=== PATIENT | male | born 1995 | race Hispanic/Latino ===

== ENCOUNTER 2017-08-06 19:07 | Emergency (ER) | payer OTHER ==
[~2017-08-06] VITALS: Ht 172.7 cm; Wt 90.7 kg
[~2017-08-06 19:07] MED LIST: 24HOUR ALLERGY10 MG PO; ABILIFY20 MG PO; ACETAMINOPHEN650 M1 PO; BENZONATATE200 MG PO; BUPROPION XL300 MG PO; CALCIUM ANTACI400 MG PO; CEROVITE ADVAN1 EACH PO; CHLORASEPTIC177 M1 MM; CLEAR-ATADINE10 MG PO; CLONIDINE HCL0.2 MG PO; DEPAKOTE500 MG PO; DIVALPROEX SOD500 M1 PO; FLAXSEED OIL1000 M1 PO; FLOVENT DISKUS50 MCG INH; IMODIUM MULTI-1 EACH PO; INTUNIV4 MG PO; LATUDA120 MG PO; MELATIN3 MG PO; METFORMIN HCL500 M1 PO; METHYLPREDNISOLO4 MG PO; NAPROXEN500 MG PO; OLANZAPINE5 MG PO; PEPTO-BISM262 MG/15 PO; RISPERIDONE2 MG PO; SEROQUEL XR200 MG PO; SERTRALINE HCL100 MG PO; TERBINAFINE HC250 MG PO; TROKENDI XR25 MG PO; VENTOLIN HFA18 GM INH; VITAMIN D250000 UNIT PO; VITAMIN D35000 UNIT PO
== END 2017-08-06 21:06 | disposition home or self-care (01) ==
LOC: ED 19:07
DX: S00.93XA Contusion of unspecified part of head, initial encounter (principal); S80.211A Abrasion, right knee, initial encounter; F32.9 Major depressive disorder, single episode, unspecified; F41.9 Anxiety disorder, unspecified; F90.9 Attention-deficit hyperactivity disorder, unspecified type; Z79.899 Other long term (current) drug therapy; W22.8XXA Striking against or struck by other objects, initial encounter
CPT/HCPCS: 99282

== ENCOUNTER 2017-08-22 21:05 | Emergency (ER) | payer OTHER ==
[~2017-08-22] VITALS: Ht 172.7 cm; Wt 90.7 kg
[2017-08-22] MEDS ORDERED: NAPROXEN500 MG PO (22:02)
== END 2017-08-22 22:18 | disposition home or self-care (01) ==
LOC: ED 21:05
DX: M72.2 Plantar fascial fibromatosis (principal); F90.9 Attention-deficit hyperactivity disorder, unspecified type; F31.9 Bipolar disorder, unspecified; F84.0 Autistic disorder; Z79.899 Other long term (current) drug therapy
CPT/HCPCS: 73630; 99283

== ENCOUNTER 2018-08-10 18:06 | Emergency (ER) | payer OTHER ==
[~2018-08-10] VITALS: Ht 172.7 cm; Wt 90.7 kg
--- OUTSIDE RECORDS SUMMARY | ~2018-08-10 | XMS | Clinical Summary ---
Demographics + + + | Address | [address] | | | [place] [address] | + + + | Home Phone | | + + + | Preferred Language | Unknown | + + + | Marital Status | Single | + + + | Yazidism Affiliation | 1041 | + + + | Race | Unknown | + + + | Ethnic Group | Unknown | + + + Author + + + | Author | [facility] | + + + | Organization | [facility] | + + + | Address | Unknown | + + + | Phone | Unavailable | + + + Support + + +---------+ + | Name | Relationship | Address | Phone | + + +---------+ + | Nguyen Vigil | ECON | Unknown | | + + +---------+ + Care Team Providers + +------+ + | Care Welding Machine Operator Name | Role | Phone | + +------+ + | Johnny Schultz DO | PP | | + +------+ + Allergies No Known Allergies Current Medications + + +---------+---------+------+------+-------+ | Prescription | Sig. | Disp. | Refills | Star | End | Statu | | | | | | t | Date | s | | | | | | Date | | | + + +---------+---------+------+------+-------+ | buPROPion | Take 300 mg by mouth | | | | | Activ | | (WELLBUTRIN XL) 300 | every morning. | | | | | e | | MG 24 hr tablet | | | | | | | + + +---------+---------+------+------+-------+ | Multiple | Take 1 tablet by | | | | | Activ | | Vitamins-Minerals | mouth nightly. | | | | | e | | (CENTROVITE) TABS | | | | | | | + + +---------+---------+------+------+-------+ | cetirizine | Take 10 mg by mouth | | | | | Activ | | (ZYRTEC) 10 MG | daily. | | | | | e | | tablet | | | | | | | + + +---------+---------+------+------+-------+ | cloNIDine | Take 0.2 mg by mouth | | | | | Activ | | (CATAPRES) 0.2 MG | nightly. | | | | | e | | tablet | | | | | | | + + +---------+---------+------+------+-------+ | divalproex | Take 1,000 mg by | | | | | Activ | | (DEPAKOTE) 500 MG EC | mouth 3 (three) | | | | | e | | tablet | times daily. | | | | | | + + +---------+---------+------+------+-------+ | ergocalciferol | Take 50,000 Units by | | | | | Activ | | (DRISDOL) 08454 | mouth twice a week. | | | | | e | | UNITS capsule | Monday and | | | | | | + + +---------+---------+------+------+-------+ | Flaxseed, Linseed, | Take 1 capsule by | | | | | Activ | | (FLAXSEED OIL) 1000 | mouth 2 (two) times | | | | | e | | MG CAPS | daily. | | | | | | + + +---------+---------+------+------+-------+ | fluticasone | 1 spray by Each Nare | | | | | Activ | | (FLONASE) 50 MCG/ACT | route daily. | | | | | e | | nasal | | | | | | | + + +---------+---------+------+------+-------+ | GuanFACINE HCl 4 | Take 1 tablet by | | | | | Activ | | MG TB24 | mouth daily. | | | | | e | + + +---------+---------+------+------+-------+ | OLANZapine | Take 5 mg by mouth | | | | | Activ | | (ZYPREXA) 5 MG | nightly. | | | | | e | | tablet | | | | | | | + + +---------+---------+------+------+-------+ | quetiapine | Take 200 mg by mouth | | | | | Activ | | (SEROQUEL) 200 MG | nightly. | | | | | e | | tablet | | | | | | | + + +---------+---------+------+------+-------+ | sertraline | Take 200 mg by mouth | | | | | Activ | | (ZOLOFT) 100 MG | daily. | | | | | e | | tablet | | | | | | | + + +---------+---------+------+------+-------+ | acetaminophen | Take 650 mg by mouth | | | | | Activ | | (TYLENOL) 325 MG | every 6 (six) hours | | | | | e | | tablet | as needed for Pain. | | | | | | + + +---------+---------+------+------+-------+ | benzonatate | Take 200 mg by mouth | | | | | Activ | | (TESSALON) 200 MG | 3 (three) times | | | | | e | | capsule | daily as needed for | | | | | | | | Cough. | | | | | | + + +---------+---------+------+------+-------+ | calcium carbonate | Take 500 mg by mouth | | | | | Activ | | (TUMS) 500 MG | every 6 (six) hours | | | | | e | | chewable tablet | as needed for | | | | | | | | Heartburn. | | | | | | + + +---------+---------+------+------+-------+ | phenol | Use as directed 1 | | | | | Activ | | (CHLORASEPTIC MOUTH | spray in the mouth | | | | | e | | PAIN) 1.4 % oral | or throat every 2 | | | | | | | spray | (two) hours as | | | | | | | | needed for Sore | | | | | | | | Throat. | | | | | | + + +---------+---------+------+------+-------+ | | Take 1 tablet by | | | | | Activ | | Loperamide-Simethico | mouth 4 (four) times | | | | | e | | ne (IMODIUM | daily as needed. | | | | | | | MULTI-SYMPTOM | | | | | | | | RELIEF) 2-125 MG | | | | | | | | TABS | | | | | | | + + +---------+---------+------+------+-------+ | melatonin 3 MG | Take 3 mg by mouth | | | | | Activ | | TABS | nightly as needed. | | | | | e | + + +---------+---------+------+------+-------+ | naproxen | Take 500 mg by mouth | | | | | Activ | | (NAPROSYN) 500 MG | 2 (two) times daily | | | | | e | | tablet | as needed. | | | | | | + + +---------+---------+------+------+-------+ | bismuth | Take 15 mLs by mouth | | | | | Activ | | subsalicylate (PEPTO | every 6 (six) hours | | | | | e | | BISMOL) 262 MG/15ML | as needed for | | | | | | | suspension | Indigestion. | | | | | | + + +---------+---------+------+------+-------+ | albuterol | Inhale 2 puffs into | | | | | Activ | | (PROVENTIL | the lungs every 4 | | | | | e | | HFA;VENTOLIN HFA) | (four) hours as | | | | | | | 108 (90 BASE) | needed for Wheezing. | | | | | | | MCG/ACT inhaler | | | | | | | + + +---------+---------+------+------+-------+ | Menthol (RICOLA) | Use as directed 1 | | | | | Activ | | LOZG | lozenge in the mouth | | | | | e | | | or throat 4 (four) | | | | | | | | times daily as | | | | | | | | needed. | | | | | | + + +---------+---------+------+------+-------+ | DM-APAP-CPM (VICKS | Take 30 mLs by mouth | | | | | Activ | | NYQUIL COLD & FLU | every 6 (six) hours | | | | | e | | NIGHT) 30-650-4 | as needed. | | | | | | | MG/30ML LIQD | | | | | | | + + +---------+---------+------+------+-------+ | mupirocin | Apply topically 2 | | | | | Activ | | (BACTROBAN) 2 % | (two) times daily as | | | | | e | | ointment | needed. | | | | | | + + +---------+---------+------+------+-------+ | | Place 1 drop into | | | | | Activ | | Naphazoline-Pheniram | both eyes 4 (four) | | | | | e | | ine (OPCON-A) | times daily as | | | | | | | 0.027-0.315 % SOLN | needed (allergies). | | | | | | | ophthalmic solution | | | | | | | + + +---------+---------+------+------+-------+ | sodium chloride | 1 spray by Each Nare | | | | | Activ | | (OCEAN) 0.65 % nasal | route as needed for | | | | | e | | | Congestion. | | | | | | + + +---------+---------+------+------+-------+ | tolnaftate | Apply topically 2 | | | | | Activ | | (TINACTIN) 1 % cream | (two) times daily as | | | | | e | | | needed (fungal | | | | | | | | infection of feet). | | | | | | + + +---------+---------+------+------+-------+ | | 2 (two) times daily | | | | | Activ | | neomycin-bacitracin- | as needed (minor | | | | | e | | polymyxin | cuts). | | | | | | | (STU-POLYSPORIN) | | | | | | | | ophthalmic ointment | | | | | | | + + +---------+---------+------+------+-------+ | metoprolol | Take 1 tablet by | 30 | 1 | 12/2 | | Activ | | (LOPRESSOR) 25 MG | mouth 2 (two) times | tablet | | 8/20 | | e | | tablet | daily. For blood | | | 16 | | | | | pressure and heart | | | | | | | | rate control | | | | | | + + +---------+---------+------+------+-------+ | phenytoin | Take 1 capsule by | 30 | 0 | 04/29 | | Activ | | (DILANTIN) 200 MG ER | mouth daily. For | capsule | | 8/20 | | e | | capsule | seizure disorder and | | | 16 | | | | | history of | | | | | | | | tonic-clonic | | | | | | | | seizures | | | | | | + + +---------+---------+------+------+-------+ Active Problems + + + | Problem | Noted Date | + + + | Encephalitis due to human herpes simplex virus (HSV) | 05/10/2016 | + + + | Developmental delay | 05/06/2016 | + + + | Seizure (HCC) | 05/06/2016 | + + + | Leukocytosis | 05/06/2016 | + + + | ADHD (attention deficit hyperactivity disorder) | 05/06/2016 | + + + | Bipolar disorder, unspecified | 05/06/2016 | + + + | Non-intractable vomiting with nausea | 05/06/2016 | + + + Family History + + +------+ + | Medical History | Relation | Name | Comments | + + +------+ + | [place]'s disease | Mother | | | + + +------+ + + +------+--------+ + | Relation | Name | Status | Comments | + +------+--------+ + | Mother | | | | + +------+--------+ + Social History + +-------+ +--------+------+ | Tobacco Use | Types | Packs/Day | Years | Date | | | | | Used | | + +-------+ +--------+------+ | Never Smoker | | | | | + +-------+ +--------+------+ + + + | Sex Assigned at | Date Recorded | | | | + + + | Not on file | | + + + Last Filed Vital Signs + + + + | Vital Sign | Reading | Time Taken | + + + + | Blood Pressure | 135/86 | 06/14/2016 10:52 AM PST | + + + + | Pulse | 97 | 06/14/2016 10:52 AM PST | + + + + | Temperature | 36.2 C (97.2 F) | 06/14/2016 10:52 AM PST | + + + + | Respiratory Rate | 22 | 05/22/2016 11:36 AM PST | + + + + | Oxygen Saturation | 100% | 06/14/2016 10:52 AM PST | + + + + | Inhaled Oxygen | - | - | | Concentration | | | + + + + | Weight | 88 kg (194 lb) | 06/14/2016 10:52 AM PST | + + + + | Height | 167.6 cm (5' 6") | 05/06/2016 9:16 PM PST | + + + + | Body Mass Index | 31.31 | 06/14/2016 10:52 AM PST | + + + + Plan of Treatment + + + + + | Health Maintenance | Due Date | Last Done | Comments | + + + + + | Vaccine: | | | | | Dtap/Tdap/Td (1 - | 4 | | | | Tdap) | | | | + + + + + | Vaccine: Influenza | | | | | (#1) | 8 | | | + + + + + Results Not on filefrom Last 3 Months Insurance + +--------+ +------+-------+ + | Payer | Benefi | Subscriber | Type | Phone | Address | | | t Plan | ID | | | | | | / | | | | | | | Group | | | | | + +--------+ +------+-------+ + | MEDICAID | [employer] | [id number] | | | [address] | | | N | | | | [place], [place] | | | [place] | | | | [address] | | | BALLROOM DANCE INSTRUCTOR | | | | | + +--------+ +------+-------+ + + +--------+ +--------+ + + | Guarantor Name | Accoun | Relation to | Date | Phone | Billing Address | | | t Type | Patient | of | | | | | | | | | | + +--------+ +--------+ + + | GLADYS VASQUEZ | Person | Self [birth year] | Home: | [address] | | | al/Fam | | 1995 | [phone] | [place] [address] | | | camila | | | [phone] | | + +--------+ +--------+ + +
--- OUTSIDE RECORDS SUMMARY | ~2018-08-10 | XMS | Clinical Summary ---
Demographics + + + | Address | [address] | | | [place] [address] | + + + | Home Phone | | + + + | Preferred Language | Unknown | + + + | Marital Status | Single | + + + | Protestant Affiliation | 1041 | + + + | Race | Unknown | + + + | Ethnic Group | Unknown | + + + Author + + + | Author | [facility] | + + + | Organization | [facility] | + + + | Address | Unknown | + + + | Phone | Unavailable | + + + Support + + +---------+ + | Name | Relationship | Address | Phone | + + +---------+ + | Nguyen Vigil | ECON | Unknown | | + + +---------+ + Care Team Providers + +------+ + | Care Data Warehousing Specialist Name | Role | Phone | + [...] | | | Activ | | (DRISDOL) [address]54 | mouth twice a week. | | [...] Comments | + + +------+ + | [place]'s disease | Mother | | | + [...] +------+-------+ + | MEDICAID | [employer] | [id number] | | | [address] | | | N | | | | [place], [place] | | | [place] | | | | [phone] | | | SUTURE WINDER HAND | | | | | + +--------+ [...] | 1995 | [phone] | [place] [address] | | | camila | | | [phone] | | + +--------+ +--------+ + +
== END 2018-08-10 20:53 | disposition home or self-care (01) ==
LOC: ED 18:06
DX: S02.2XXA Fracture of nasal bones, initial encounter for closed fracture (principal); F90.9 Attention-deficit hyperactivity disorder, unspecified type; F31.9 Bipolar disorder, unspecified; F41.9 Anxiety disorder, unspecified; F84.0 Autistic disorder; Z79.899 Other long term (current) drug therapy; Y04.0XXA Assault by unarmed brawl or fight, initial encounter; Z23 Encounter for immunization
CPT/HCPCS: 70486; 90471; 90715; 99284-25

== ENCOUNTER 2019-05-31 14:16 | Emergency (ER) | payer OTHER ==
[~2019-05-31] VITALS: Ht 172.7 cm; Wt 90.7 kg
--- OUTSIDE RECORDS SUMMARY | ~2019-05-31 | XMS | Encounter Summary ---
Demographics + + + | Address | [address] | | | [place] [address] | + + + | Home Phone | | + + + | Preferred Language | Unknown | + + + | Marital Status | Single | + + + | Zoroastrianism Affiliation | 1041 | + + + | Race | Unknown | + + + | Ethnic Group | Unknown | + + + Author + + + | Author | [facility] | | | and [facility] | + + + | Organization | [facility] | | | and [facility] | + + + | Address | Unknown | + + + | Phone | Unavailable | + + + Care Team Providers + +------+ + | Care Mexican Food Machine Tender Name | Role | Phone | + +------+ + PCP | Unavailable | + +------+ + Encounter Details +--------+ + + + + | Date | Type | Department | Care Team | Description | +--------+ + + + + | 05/06/ | Hospital | [facility] | Conversion | Diagnosis unknown | | 2016 | Encounter | CONVERSION DEP [address] | Transaction, | | | | | IBIS [facility]AVE[facility] | Provider Unknown | | | | | [place] | [phone] | | | | | [phone] | | | | | | [phone] | | | +--------+ + + + + Social History + +-------+ +--------+------+ | Tobacco Use | Types | Packs/Day | Years | Date | | | | | Used | | + +-------+ +--------+------+ | Never Assessed | | | | | + +-------+ +--------+------+ + + + | Sex Assigned at | Date Recorded | | | | + + + | Not on file | | + + + + + + + | Job Start Date | Occupation | Industry | + + + + | Not on file | Not on file | Not on file | + + + + + + + + | Travel History | Travel Start | Travel End | + + + + + + | No recent travel history available. | + + documented as of this encounter Plan of Treatment Not on filedocumented as of this encounter Procedures + +--------+ + + + | Procedure Name | Priori | Date/Time | Associated Diagnosis | Comments | | | ty | | | | + +--------+ + + + | CT HEAD WO CONTRAST | Routin | 05/06/2016 | | Results for this | | | e | 5:29 PM | | procedure are in the | | | | PST | | results section. | + +--------+ + + + documented in this encounter Results CT Head wo Contrast (05/06/2016 5:29 PM PST) + + | Specimen | + + | | + + + + + | Narrative | Performed At | + + + | This is a non-reportable procedure without a radiologist report and | | | is used for image storage only | | + + + + + | Procedure Note | + + | Manish Michael - 01/10/2019 8:49 PM PDT This is a non-reportable procedure | | without a radiologist report and isused for image storage only | + + documented in this encounter Visit Diagnoses + + | Diagnosis | + + | Diagnosis unknown Other unknown and unspecified cause of morbidity or mortality | + + documented in this encounter"
--- OUTSIDE RECORDS SUMMARY | ~2019-05-31 | XMS | Clinical Summary ---
Demographics + + + | Address | [address] | | | [place] [address] | + + + | Home Phone | | + + + | Preferred Language | Unknown | + + + | Marital Status | Single | + + + | Yarsani Affiliation | 1041 | + + + | Race | Unknown | + + + | Ethnic Group | Unknown | + + + Author + + + | Author | [facility] (Historical as of | | | 01-12-19) | + + + | Organization | [facility] (Historical as of | | | 01-12-19) | + + + | Address | Unknown | + + + | Phone | Unavailable | + + + Support + + +---------+ + | Name | Relationship | Address | Phone | + + +---------+ + | Nguyen Vigil | ECON | Unknown | | + + +---------+ + Care Team Providers + +------+ + | Care Professor Of Vegetable Science Name | Role | Phone | + [...] | | | Activ | | (DRISDOL) 84698 | mouth twice a week. | | [...] capsule by | 30 | 0 | 12/2 | | Activ | | (DILANTIN) 200 [...] Comments | + + +------+ + | Riccardo's disease | Mother | | | + [...] | | | | | (#1) | 9 | | | + + + + [...] +------+-------+ + | MEDICAID | [employer] | [id number] | | | [address] | | | N | | | | [place], [place] | | | [place] | | | | [phone] | | | PHYSICAL THERAPY DIRECTOR | | | | | + +--------+ [...] [birth year] | Home: | [address] | | | al/Bob | | 1995 | [phone] | [place] [address] | | | camila | | | [phone] | | + +--------+ +--------+ + +
--- OUTSIDE RECORDS SUMMARY | ~2019-05-31 | XMS | Clinical Summary ---
Demographics + + + | Address | [address] | | | [place] [address] | + + + | Home Phone | | + + + | Preferred Language | Unknown | + + + | Marital Status | Single | + + + | Gnosticist Affiliation | 1041 | + + + | Race | Unknown | + + + | Ethnic Group | Unknown | + + + Author + + + | Author | [facility] | | | and [facility] | + + + | Organization | [facility] | | | and [facility] | + + + | Address | Unknown | + + + | Phone | Unavailable | + + + Care Team Providers + +------+ + | Care Fiber Picker Name | Role | Phone | + +------+ + | Johnny Schultz DO | TINA | | + +------+ + Allergies Not on File Medications Not on file Active Problems Not on file Family History + + +------+ + | Medical History | Relation | Name | Comments | + + +------+ + | Ziebach's chorea | Mother | | | + + [...] recent travel history available. | + + Last Filed Vital Signs + + + + + | Vital Sign | Reading | Time Taken | Comments | + + + + + | Blood Pressure | 135/86 | 06/14/2016 10:58 AM | | | | | PST | | + + + + + | Pulse | 97 | 06/14/2016 10:58 AM | | | | | PST | | + + + + + | Temperature | 36.2 C (97.2 F) | 06/14/2016 10:58 AM | | | | | PST | | + + + + + | Respiratory Rate | 22 | 05/22/2016 11:37 AM | | | | | PST | | + + + + + | Oxygen Saturation | - | - | | + + + + + | Inhaled Oxygen | - | - | | | Concentration | | | | + + + + + | Weight | 88 kg (194 lb) | 06/14/2016 10:58 AM | | | | | PST | | + + + + + | Height | 167.6 cm (5' 6") | 05/22/2016 11:37 AM | | | | | PST | | + + + + + | Body Mass Index | 31.31 | 05/22/2016 11:37 AM | | | | | PST | | + + + + + Plan of Treatment + + + + + | Health Maintenance | Due Date | Last Done | Comments | + + + + + | Vaccine: | | | | | Dtap/Tdap/Td (1 - | 6 | | | | Tdap) | | | | + + + + + | Vaccine: Influenza | | | | | (#1) | 9 | | | + + + + + Results Not on filefrom Last 3 Months
--- OUTSIDE RECORDS SUMMARY | ~2019-05-31 | XMS | Encounter Summary ---
Demographics + + + | Address | [address] | | | [place] [address] | + + + | Home Phone | | + + + | Preferred Language | Unknown | + + + | Marital Status | Single | + + + | Uatsdin Affiliation | 1041 | + + + | Race | Unknown | + + + | Ethnic Group | Unknown | + + + Author + + + | Author | [facility] | | | and [place]astacio[place] | + + + | Organization | [facility] | | | and [place] | + + + | Address | Unknown | + + + | Phone | Unavailable | + + + Care Team Providers + +------+ + | Care Elevator Installer Apprentice Name | Role | Phone | + +------+ + PCP | Unavailable | + +------+ + Encounter Details +--------+ + + + + | Date | Type | Department | Care Team | Description | +--------+ + + + + | 05/06/ | Hospital | [facility] | Grace Luna MD | Convulsions, | | 2016 - | Encounter | [facility] | [address] | unspecified | | | | CARE FLOOR [address] | [place] [address] | convulsion type | | 05/22/ | | [address] | [phone] | ([facility]) | | 2016 | | [place], [place] | | | | | | [address] | | | | | | [phone] | | | +--------+ + + + [...] + + documented as of this encounter Last Filed Vital Signs + + + + + | Vital Sign | Reading | Time Taken | Comments | + + + + + | Blood Pressure | 132/88 | 05/22/2016 11:37 AM | | | | | PST | | + + + + + | Pulse | 114 | 05/22/2016 11:37 AM | | | | | PST | | + + + + + | Temperature | 36.7 C (98 F) | 05/22/2016 11:37 AM | | | [...] + + + + | Weight | 87.3 kg (192 lb 8 | 05/22/2016 11:37 AM | | | | oz) | PST | | + + + + + | Height | 167.6 cm (5' 6") | 05/22/2016 11:37 AM | | | | | PST | | + + + + + | Body Mass Index | 31.07 | 05/22/2016 11:37 AM | | | | | PST | | + + + + + documented in this encounter Discharge Summaries Katlyn Arango MD - 05/22/2016 8:13 AM PSTFormatting of this note might be different f rom the original. 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 male who was admitted on 05/06/2016 with tonic clonic seizures and found to have occiptal and temporal lobe lesions on MRI+positive HSV 2- LP- HSV encephal itis +Past medical history of DD and bipolar Disorder from adult family home ADL need assist ID consulted - care plan IV acyclovir -planned for 14 days total until may 22 Today last day as per ID Wark has to be IV form, he is heamodynamically stable no recurrence of se izure afebril tolerating well IV antibiotic Finishing today . Stable electrolyes and cre stablestable anemia noted since admit sinus tachycardia no compliant CP or palpiatation review TSH were normal we start low dose betablocker also as BP med inplace of am clonidine now HR in 90s insta ed 120s sinus . Tonic Clonic seizures stable No recurrenace by sofar on , dilantinlevel on Apr 8 albumin 3.3 depokte level 97 theraputic with heamodynamic stability no headache or nause vomiting afebril d/c to adult family home back after done of IV acyclovir today ADHD /. Bipolar disorder stable on depakote and, zoloft, bupropion and Seroquel As well a s zyprexa continue resume at d/cmoniter LFT trend lability Being stable lability at d/c can be Acyclovir on board also can contribute on top of his hep A Ab reactive Can be Current or past HAV infection. No serologic evidence of HCV infection or HBV infection o r vaccination per testing HIV was negative need recheck on Apr at [facility]ility f/ up ID PCP . . 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 Recent Radiology Results X-ray Chest 1 View 05/16/2016 1. Left PICC tip in the mid to upper SVC. Discharge Information: Follow up: Michelle López MD [address] [facility] [address] On 05/23/2016 Johnny Schultz, [address] [place] [id number] Medication List START taking these medications acyclovir 500 MG IVPB QTY: 100 mL Refills: 0 Commonly known as: ZOVIRAX 640 mg IV every 8 hours metoprolol 25 MG tablet QTY: 30 tablet Refills: 1 Commonly known as: LOPRESSOR Take 1 tablet by mouth 2 (two) times daily. phenytoin 200 MG ER capsule QTY: 30 capsule Refills: 0 Commonly known as: DILANTIN Take 1 capsule by mouth daily. CHANGE how you take these medications * divalproex 500 MG EC tablet Refills: 0 Commonly known as: DEPAKOTE What changed: Another medication with the same name was added. Make sure you understand ho w and when to take each. * divalproex 500 MG EC tablet QTY: 60 tablet Refills: 0 Commonly known as: DEPAKOTE Take 2 tablets by mouth 3 (three) times daily. What changed: You were already taking a medication with the same name, and this prescripti on was added. Make sure you understand how and when to take each. * Notice: This list has 2 medication(s) that are the same as other medications prescribed for you. Read the directions carefully, and ask your doctor or other care provider to revie w them with you. CONTINUE taking these medications acetaminophen 325 MG tablet Refills: 0 Commonly known as: TYLENOL albuterol 108 (90 BASE) MCG/ACT inhaler Refills: 0 Commonly known as: PROVENTIL HFA;VENTOLIN HFA benzonatate 200 MG capsule Refills: 0 Commonly known as: TESSALON bismuth subsalicylate 262 MG/15ML suspension Refills: 0 Commonly known as: PEPTO BISMOL buPROPion 300 MG 24 hr tablet Refills: 0 Commonly known as: WELLBUTRIN XL CENTROVITE Tabs Refills: 0 cetirizine 10 MG tablet Refills: 0 Commonly known as: ZyrTEC CHLORASEPTIC MOUTH PAIN 1.4 % oral spray Refills: 0 Generic drug: phenol cloNIDine 0.2 MG tablet Refills: 0 Commonly known as: CATAPRES ergocalciferol 59477 UNITS capsule Refills: 0 Commonly known as: DRISDOL Flaxseed Oil 1000 MG Caps Refills: 0 fluticasone 50 MCG/ACT nasal Refills: 0 Commonly known as: FLONASE GuanFACINE HCl 4 MG Tb24 Refills: 0 IMODIUM MULTI-SYMPTOM RELIEF 2-125 MG Tabs Refills: 0 Generic drug: Loperamide-Simethicone melatonin 3 MG Tabs Refills: 0 mupirocin 2 % ointment Refills: 0 Commonly known as: BACTROBAN naproxen 500 MG tablet Refills: 0 Commonly known as: NAPROSYN mrttoisb-cplpxzxktr-tdjjrpnil ophthalmic ointment Refills: 0 Commonly known as: STU-POLYSPORIN OLANZapine 5 MG tablet Refills: 0 Commonly known as: ZyPREXA OPCON-A 0.027-0.315 % Soln ophthalmic solution Refills: 0 Generic drug: Naphazoline-Pheniramine quetiapine 200 MG tablet Refills: 0 Commonly known as: SEROquel RICOLA Lozg Refills: 0 sertraline 100 MG tablet Refills: 0 Commonly known as: ZOLOFT sodium chloride 0.65 % nasal Refills: 0 Commonly known as: OCEAN TUMS 500 MG chewable tablet Refills: 0 Generic drug: calcium carbonate VICKS NYQUIL COLD & FLU NIGHT 30-650-4 MG/30ML Liqd Refills: 0 Generic drug: DM-APAP-CPM STOP taking these medications VICKS DAYQUIL COLD & FLU 10-5-325 MG/15ML Liqd Generic drug: QF-Izjwwbyoqqfbk-Kpvawnusxjkjj Where to Get Your Medications You can get these medications from any pharmacy Bring a paper prescription for each of these medications - acyclovir 500 MG IVPB - divalproex 500 MG EC tablet - metoprolol 25 MG tablet - phenytoin 200 MG ER capsule 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 KATLYN ARANGO 8:13 AM documented in this encounter Progress Notes Conversion Transaction, Provider Unknown - 05/22/2016 2:38 PM PSTFormatting of this note m ight be different from the original. Nurse Progress Note by Gifty Childs RN at 05/22/16 1438 Author: Gifty Childs RN Service: (none) Author Type: Registered Nurse Filed: 05/22/16 1439 Date of Service: 05/22/168 Status: Signed Casing Crew: Gifty Childs RN (Registered Nurse) Pt being discharged off unit with whitewasher. All discharge information faxed to [facility] and also sent with pt. Iv removed. Gifty Childs RN onver ellen Transaction, Provider Unknown - 05/22/2016 3:40 AM PST Progress Notes by Maggy Cline RN at 05/22/16 0340 Author: Maggy Cline RN Service: (none) Author Type: Registered Nurse Filed: 05/22/16 0514 Date of Service: 05/22/16339 Status: Signed Casing Crew: Maggy Cline RN (Registered Nurse) Patient is AOx4. VSS. He was tearful and emotional this evening prior to falling asleep, b ut woke feeling better. He denies any pain or discomfort at this time. No acute changes to initial shift assessment. Will continue to monitor. Maggy Cline RN onver ellen Transaction, Provider Unknown - 05/21/2016 12:32 PM PST Progress Notes by Aura Engel RN at 05/21/16 1232 Author: Aura Engel RN Service: (none) Author Type: Registered Nurse Filed: 05/21/16 3640 Date of Service: 05/21/16 1232 Status: Signed Casing Crew: Aura Engel RN (Registered Nurse) VSS, HR has been elevated 103-117, pt seems anxious at times but able to redirect easily. N o acute changes today. Aura Engel RN onver ellen Transaction, Provider Unknown - 05/21/2016 9:48 AM PST Progress Notes by Aura Engel RN at 05/21/16 0948 Author: Aura Engel RN Service: (none) Author Type: Registered Nurse Filed: 05/21/16 1231 Date of Service: 05/21/16947 Status: Signed Casing Crew: Aura Engel RN (Registered Nurse) Spoke to tarun Restrepo to retime ABX so pt ill be able to DC 1225 by 1430. Note to pharmacy to retime. Aura Engel RN onver ellen Transaction, Provider Unknown - 05/21/2016 9:43 AM PST Nurse Progress Note by Eri Garcia RN at 05/21/16 0943 Author: Eri Garcia RN Service: (none) Author Type: Registered Nurse Filed: 05/21/16 0956 Date of Service: 05/21/1643 Status: Signed Casing Crew: Eri Garcia RN (Registered Nurse) [facility] Juhi [phone]. They will be sending chantel eone tomorrow 05/22. She stated they she would be able to have someone stay till 1430 to radha e patient back to the house. RN spoke with Dr. Baldwin and got permission to give doses earlier so last dose to be finished by 1430. Eri Garcia RN Katlyn Oneal MD - 05/21/2016 8:37 AM PST Progress Notes by Katlyn Arango MD at 05/21/16 0837 Author: Katlyn Arango MD Service: (none) Author Type: Physician Filed: 05/21/16 0845 Date of Service: 05/21/16836 Status: Signed Casing Crew: Katlyn Arango MD (Physician) [facility] Service: Hospitalist Progress Note Pt: Feliciano Leggett AGE/SEX: 20 y.o. male : 1995 ROOM: [address] [place] [address] REQUESTING PROVIDER: Katlyn Arango MD TODAY'S DATE: 05/21/2016 Hospital Day: LOS: 15 days +Past medical history of DD and bipolar Disorder from adult family home admitted with t onic clonic seizures and found to have occiptal and temporal lobe lesions on MRI+positive HS V 2- LP- HSV encephalitis SUBJECTIVE heart rate though mildly down in 104 instaed 110 120s no CP no SOB want to go home Scheduled Medications acyclovir 10 mg/kg ([place]) Intravenous Q8H buPROPion 300 mg Oral QAM cetirizine 10 mg Oral Daily divalproex 1,000 mg Oral TID divalproex 1,000 mg Oral Once famotidine 20 mg Oral BID lidocaine buffered 1% 0.5 mL Intradermal Once melatonin 3 mg Oral Nightly metoprolol 25 mg Oral BID OLANZapine 5 mg Oral Nightly phenytoin 100 mg Oral Daily with dinner phenytoin 200 mg Oral Daily quetiapine 200 mg Oral Nightly sertraline 200 mg Oral Daily sodium chloride 10 mL Intravenous 2 times per day Continuous Infusions PRN Medications albuterol, bismuth subsalicylate, HYDROmorphone OR HYDROmorphone, LORazepam, ondansetro n OR ondansetron, oxyCODONE-acetaminophen OR oxyCODONE-acetaminophen, polyethylene g lycol, potassium OR potassium OR potassium OR potassium chloride OR potassiu m chloride OR potassium chloride, sodium chloride, sodium chloride 0.9 %, sodium chlorid e Allergy: No Known Allergies OBJECTIVE Vitals: Patient Vitals for the past 24 hrs: BP Temp Temp src Pulse Resp SpO2 05/21/16 0731 114/78 mmHg 98 F (36.7 C) Oral 104 18 97 % 05/21/16 0410 105/73 mmHg 98.4 F (36.9 C) Oral 105 19 95 % 05/21/16 0008 111/56 mmHg 98.6 F (37 C) Axillary 103 22 93 % 05/20/16 1912 134/84 mmHg 98.2 F (36.8 C) Oral 111 19 98 % 05/20/16 1635 131/79 mmHg 98.9 F (37.2 C) Oral 117 18 97 % 05/20/16 1141 121/78 mmHg 98.1 F (36.7 C) Oral 112 18 98 % I&O Detailed Table: Intake/Output Summary (Last 24 hours) at 05/21/16 0837 Last data filed at 05/21/16 0731 Gross per 24 hour Intake 2297.8 ml Output 0 ml Net 2297.8 ml Patient Vitals for the past 96 hrs: Weight 05/19/16 0459 88 kg (194 lb 0.1 oz) 05/18/16 0251 87 kg (191 lb 12.8 oz) Hemodynamics Last 24hrs: Examination: (nursing notereviewed). 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 Phosphorus: Recent Labs Lab 05/21/16409 PHOS 5.7* Recent Labs Lab 05/21/160 05/20/16 0428 05/19/16 0451 MG 2.4 2.2 2.1 No results for input(s): AMYLASE in the last 168 hours. No results for input(s): PHART, PO2ART, PUO1COQ, G8BUOSDV, BEART in the last 168 hours. No results for input(s): APTT, INR, PTT in the last 168 hours. Recent Labs Lab 05/21/16409 TSH 3.52 No results for input(s): CKTOTAL, TROPONINI, TROPONINT, CKMBINDEX in the last 168 hours. PROBLEM LIST Principal Problem: Encephalitis due to human herpes simplex virus (HSV) Active Problems: Developmental delay Seizure (HCC) Leukocytosis ADHD (attention deficit hyperactivity disorder) Bipolar disorder, unspecified (HCC) Non-intractable vomiting with nausea ASSESSMENT & PLAN Principal Problem: Encephalitis due to human herpes simplex virus (HSV) Active Problems: Developmental delay Seizure (HCC) Leukocytosis ADHD (attention deficit hyperactivity disorder) Bipolar disorder, unspecified (HCC) Non-intractable vomiting with nausea HSV encephalitis on IV acyclovir day -planned for 14 days total until may 22 as per ID Wark has t o be IV form,noted sinus tachycardia asymptomatic . Stable electrolyes and cre stable stable anemia TSH normal at lesat betablocker Help As now 104 instaed 120s sinus . Tonic Clonic seizures stable No recurrenace by sofar continue home meds, dilantin level on may 05 albumin 3.3 will have depokte level 97 theraputic aspiration precautions ADHD /. Bipolar disorder stable on depakote and, zoloft, bupropion and Seroquel As well a s zyprexa moniter LFT trend and lability depokote and dilantin level stable can be Acyclovir on board also can contribute . . HTN Stable After We change bertablocker as also will help sinus tach as well GI px as his facility can not accomodate IV acyclovir need need in hospital until IV done On KATLYN ARANGO MD MD 05/21/2016 8:37 AM onversion Transac tion, Provider Unknown - 05/21/2016 4:38 AM PSTFormatting of this note might be different f rom the original. Nurse Progress Note by Tory Nieto RN at 05/21/168 Author: Tory Nieto RN Service: (none) Author Type: Registered Nurse Filed: 05/21/16440 Date of Service: 05/21/16437 Status: Signed Casing Crew: Tory Nieto RN (Registered Nurse) VSS except for sustained tachycardia HR 100s-110s. Pt has been agreeable all night until th is morning. Pt had the understanding that he would D/C today but it was explained to him elizabeth t plans for D/C are not until tomorrow. Pt stated that he is done taking the medicine and th at he just wants the doctor to release him. Nursing attempted to educate pt on necessity of completing acyclovir therapy but he was adamant on leaving today and was not accepting. Pt h as otherwise been appropriate, no changes in neuro status. Pt sleeping at this time and slep t for most of the night. Will continue to monitor. Tory Whitmore RN onver ellen Transaction, Provider Unknown - 05/20/2016 4:28 PM PST Progress Notes by Aura Engel RN at 05/20/16 8831 Author: Aura Engel RN Service: (none) Author Type: Registered Nurse Filed: 05/20/16 3130 Date of Service: 05/20/161627 Status: Signed Casing Crew: Aura Engel RN (Registered Nurse) Pt HR has been elevated 112-129. Pt seems anxious but denies when asked. Pt has been ambula ting in halls off and on all day with a staff member at side. No problems with IV or adminis tering medications today. Will cont to monitor. Report given bedside to oncoming RN. Aura Engel RN onver ellen Transaction, Provider Unknown - 05/20/2016 11:35 AM PST Progress Notes by Carisa Kidd RD at 05/20/16 1135 Author: Carisa Kidd RD Service: (none) Author Type: Registered Dietitian Filed: 05/20/16 1136 Date of Service: 05/20/16 1135 Status: Signed Casing Crew: Carisa Kidd RD (Registered Dietitian) 05/20/16 1104 Subjective Timepoint Follow up (L risk) Pt c/o RN reports pt is eating well. Reported by RN Fluid / Beverage Intake Oral Fluids Amount Fluids ad mai. Food Intake Amount of Food Per charting pt had 100% of breakfast this morning. Type of Food / Meals General diet Meal / Snack Pattern Per charting pt has been eating 100% of meals, average of 2 meals per day plus snacks. Anthropometrics Weight change Most recent wt from 05/19: 88 kg. Wt is up 1.8 kg since admit. Biochemical data, medical tests, and procedures reviewed Biochemical data, medical tests, and procedures reviewed BG 160 (H). Recommendations Recommended energy needs General diet. Encourage well balanced meals. Monitor and follow as indicated. Nutritional Risk Nutritional risk Low Follow up date 05/27/[address] ysherry, Katlyn Potts MD - 05/20/2016 7:42 AM PST Progress Notes by Katlyn Arango MD at 05/20/16 0742 Author: Katlyn Arango MD Service: (none) Author Type: Physician Filed: 05/21/16 0846 Date of Service: 05/20/16 0742 Status: Addendum Casing Crew: Katlyn Arango MD (Physician) Related Notes: Original Note by Katlyn Arango MD (Physician) filed at 05/20/16 0802 [facility] Service: Hospitalist Progress Note Pt: Feliciano Leggett AGE/SEX: 20 y.o. male : 1995 ROOM: [address] [place] [address] REQUESTING PROVIDER: Katlyn Arango MD TODAY'S DATE: 05/20/2016 Hospital Day: LOS: 14 days +Past medical history of DD and bipolar Disorder from adult family home admitted with to rohan clonic seizures and found to have occiptal and temporal lobe lesions on MRI+positive HSV 2- LP- HSV encephalitis SUBJECTIVE epiosde of confusion Early this am afebril but Tachy no CP or SOB Scheduled Medications acyclovir 10 mg/kg ([place]) Intravenous Q8H buPROPion 300 mg Oral QAM cetirizine 10 mg Oral Daily cloNIDine 0.1 mg Oral Nightly divalproex 1,000 mg Oral TID famotidine 20 mg Oral BID lidocaine buffered 1% 0.5 mL Intradermal Once melatonin 3 mg Oral Nightly OLANZapine 5 mg Oral Nightly phenytoin 100 mg Oral Daily with dinner phenytoin 200 mg Oral Daily quetiapine 200 mg Oral Nightly sertraline 200 mg Oral Daily sodium chloride 10 mL Intravenous 2 times per day sodium chloride 10 mL Intravenous 2 times per day Continuous Infusions PRN Medications albuterol, bismuth subsalicylate, HYDROmorphone OR HYDROmorphone, LORazepam, ondansetro n OR ondansetron, oxyCODONE-acetaminophen OR oxyCODONE-acetaminophen, polyethylene g lycol, potassium OR potassium OR potassium OR potassium chloride OR potassiu m chloride OR potassium chloride, sodium chloride 0.9 %, sodium chloride, sodium chlorid e Allergy: No Known Allergies OBJECTIVE Vitals: Patient Vitals for the past 24 hrs: BP Temp Temp src Pulse Resp SpO2 05/20/16 0736 114/72 mmHg 98.8 F (37.1 C) Oral 129 18 96 % 05/20/16 0320 115/66 mmHg 98.2 F (36.8 C) Oral 117 18 99 % 05/19/16 2338 111/65 mmHg 98.2 F (36.8 C) Oral 110 18 94 % 05/19/16 1952 149/84 mmHg 98.4 F (36.9 C) Oral 136 19 97 % 05/19/16 1606 (!) 148/91 mmHg 98.8 F (37.1 C) Oral 134 20 96 % 05/19/16 1101 123/86 mmHg 98.1 F (36.7 C) Oral 119 20 97 % I&O Detailed Table: Intake/Output Summary (Last 24 hours) at 05/20/16 0743 Last data filed at 05/20/16 0536 Gross per 24 hour Intake 1803 ml Output 0 ml Net 1803 ml Patient Vitals for the past 96 hrs: Weight 05/19/16 0459 88 kg (194 lb 0.1 oz) 05/18/16 0251 87 kg (191 lb 12.8 oz) 05/17/16 0528 86.274 kg (190 lb 3.2 oz) Hemodynamics Last 24hrs: Examination: (nursing notereviewed). 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 no focality sesnstion grossly intact LABS: Recent Labs Lab 05/20/16 0428 05/19/16 0451 05/18/16 0428 WBC 9.90 8.47 8.47 HGB 13.0* 12.5* 12.6* HCT 38.2* 36.6* 37.6* PLT 231 214 214 NEUTOPHILPCT 67.03 58.72 52.21 MONOPCT 12.86 18.21 17.82 Recent Labs Lab 05/20/168 05/19/161 05/18/16 0428 05/16/16 0601 05/14/16 0534 NA 140 141 141 < > 141 142 K 3.6 4.0 4.1 < > 3.4* 4.1 CL 102 105 104 < > 103 105 CO2 26 24 26 < > 26 28 BUN 6* 5* 7* < > 5* 4* CREATININE 0.8 0.6* 0.6* < > 0.9 0.6* PROT -- -- -- -- 6.5 6.5 BILITOT -- -- -- -- 0.2 0.2 ALT -- -- -- -- 101* 96* AST -- -- -- -- 80* 81* < > = values in this interval not displayed. Phosphorus: Recent Labs Lab 05/20/16427 PHOS 4.8 Recent Labs Lab 05/20/16 0428 05/19/16 0451 05/18/16427 MG 2.2 2.1 2.2 No results for input(s): AMYLASE in the last 168 hours. No results for input(s): PHART, PO2ART, RHU5FCB, Z5ELRSQK, BEART in the last 168 hours. No results for input(s): APTT, INR, PTT in the last 168 hours. No results for input(s): TSH, T3FREE, FREET4 in the last 168 hours. No results for input(s): CKTOTAL, TROPONINI, TROPONINT, CKMBINDEX in the last 168 hours. 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 Stable electrolyes and cre stable stable anemia TSH send out med review . Tonic Clonic seizures stable No recurrenace by sofar continue home meds, dilantin level on may 05 albumin 3.3 will have depokte level as well spiration precautions ADHD /. Bipolar disorder stable on depakote and, zoloft, bupropion and Seroquel As well as zyprexa moniter LFT trend and lability noted lab . . HTN Though controlled overall on clonidine will change bertablocker as also will help sinus tach as well GI px as his facility can accomodate IV acyclovir need case magt working process KATLYN ARANGO MD MD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 05/17/2016 HGB 12.3* 05/17/2016 HCT 35.9* 05/17/2016 MCV 83.8 05/17/2016 MCH 28.7 05/17/2016 MCHC 34.3 05/17/2016 RDW 47.7 05/17/2016 PLT 178 05/17/2016 MPV 7.2 05/17/2016 DIFFTYPE AUTOMATED 05/17/2016 CMP: Lab Results Component Value Date NA 141 05/17/2016 K 3.9 05/17/2016 CL 104 05/17/2016 CO2 27 05/17/2016 ANIONGAP 14 05/17/2016 GLUF 159* 05/17/2016 BUN 4* 05/17/2016 CREATININE 0.7 05/17/2016 BCR 6 05/16/2016 CA 8.7 05/17/2016 PROT 6.5 05/16/2016 ALB 2.9* 05/17/2016 GLOB 3.3 05/16/2016 BILITOT 0.2 05/16/2016 ALP 60 05/16/2016 AST 80* 05/16/2016 ALT 101* 05/16/2016 EGFR >60 05/17/2016 Recent Labs Lab 05/17/16 0458 MG 2.1 Results for FELICIANO LEGGETT ( ) as of 05/15/2016 18:14 Ref. Range 05/07/2016 17:13 CRYPTOCOCCUS AB, CSF Latest Units: Titer <1:1 CSF TOTAL PROTEIN Latest Ref Range: 15-45 mg/dL 3380 (H) CSF GLUCOSE Latest Ref Range: 45-90 mg/dL 102 (H) Results for FELICIANO LEGGETT ( ) as of 05/15/2016 18:14 Ref. Range 05/07/2016 17:13 HSV DNA Type 2 Latest Ref Range: Not Detected DETECTED (A) MRI brain 1. Focal areas of FLAIR and T2 hyperintensity involving both caudate heads and the cortic al surfaces of the medial parietal lobes and occipital lobes suspicious for status epileptic us or possibly a viral encephalitis such as herpes encephalitis. CSF evaluation is recomme nded if not already done. 2. Moderate diffuse cerebral atrophy which greater than expected for a 20-year-old male w [facility] may be related to the history of long-term seizure disorder. head 1. Brain is negative for acute pathology. 2. No abnormal enhancement noted. 3. Normal CT angiogram of the head without evidence of stenosis, occlusion, or aneurysm i n the cerebral arteries. 4. Nonspecific mild to moderate supratentorial volume loss. LEM LIST Principal Problem: Encephalitis due to human herpes simplex virus (HSV) Active Problems: Developmental delay Seizure (HCC) Leukocytosis ADHD (attention deficit hyperactivity disorder) Bipolar disorder, unspecified (HCC) Non-intractable vomiting with nausea ASSESSMENT & PLAN 1. HSV encephalitis on IV acyclovir(planned for 14 days total) end on may 22 as d/w dr.wa avila has to be IV form,his facility is unable to give IV acyclovir.CW working progress ,replac e IV access 2. 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 Bipolar disorder stable on depakote and, zoloft, bupropion and Seroquel continue all alex e meds ,follow up on LFTs with PCP,avoid tylenol products 4. ADHD continue home meds 5. HTN controlled overall on clonidine continue to monitor BP and adjust as Needed 6.GI px 7.hypokalemia replete via electrolyte protocol as needed and monitor Disposition: Admitted Code Status: Full Code Floyd Skelton MD 05/17/2016 onversion Transaction, Provider Unknown - 05/17/2016 5:24 AM PSTFormatting of this note might be different from e original. Progress Notes by Sofya Diaz RN at 05/17/16523 Author: Sofya Diaz RN Service: (none) Author Type: Registered Nurse Filed: 05/17/1632 Date of Service: 05/17/16523 Status: Signed Casing Crew: Sofya Diaz RN (Registered Nurse) A&O x4, Vss, on room air SpO2 97-98%. No complaints of pain. Patient pulling on PICC line multiple times. Dressing changed 2 times. However, pt managed to pull out PICC line. Sitter at bedside. Otherwise no acute changes noted from previous assessement. Will continue to mon itor. onver ellen Transaction, Provider Unknown - 05/16/2016 6:17 PM PST Nurse Progress Note by Lucy Zuleta RN at 05/16/161816 Author: Lucy Zuleta RN Service: (none) Author Type: Registered Nurse Filed: 05/16/161817 Date of Service: 05/16/161816 Status: Signed Casing Crew: Lucy Zuleta RN (Registered Nurse) Patient resting comfortably in room. Ambulated 3 x around unit twice during shift. No furth er changes since earlier assessment. LUCY ZULETA Floyd Rain MD - 05/16/2016 11:49 AM PSTFormatting of this note might be different from the origi nal. Progress Notes by Floyd Skelton MD at 05/16/161148 Author: Floyd Skelton MD Service: Hospitalist Author Type: Physician Filed: 05/16/16 1320 Date of Service: 05/16/161148 Status: Signed Casing Crew: Floyd Skelton MD (Physician) [facility] Service: Hospitalist Progress Note Hospital Day: LOS: 10 days Post-Op Day: * No surgery found * SUBJECTIVE Patient Summary: per " 20 yo with a history of DD and bipolar D/O admitted with tonic clonic seizures and found to have occiptal and temporal lobe lesions on MRI and posit meagan HSV 2 on LP c/w HSV encephalitis" Events Overnight: Patient seen and examined,denies headache or blurry vision or SOB or CP no abdominal pain,stable VS,no new events overnight. Scheduled Medications acyclovir 10 mg/kg ([place]) Intravenous Q8H buPROPion 300 mg Oral QAM cetirizine 10 mg Oral Daily cloNIDine 0.1 mg Oral Nightly divalproex 1,000 mg Oral TID famotidine 20 mg Oral BID Or famotidine 20 mg Intravenous BID melatonin 3 mg Oral Nightly OLANZapine 5 mg Oral Nightly phenytoin 100 mg Oral Daily with dinner phenytoin 200 mg Oral Daily quetiapine 200 mg Oral Nightly sertraline 200 mg Oral Daily sodium chloride 10 mL Intravenous 2 times per day Continuous Infusions PRN Medications acetaminophen OR acetaminophen, albuterol, bismuth subsalicylate, gadobenate dimeglumin e, HYDROmorphone OR HYDROmorphone, LORazepam, ondansetron OR ondansetron, oxyCODONE- acetaminophen OR oxyCODONE-acetaminophen, polyethylene glycol, potassium OR potassiu m OR potassium OR potassium chloride OR potassium chloride OR potassium chlo ride, sodium chloride 0.9 %, sodium chloride OBJECTIVE Vital Signs: BP 150/95 mmHg | Pulse 121 | Temp(Src) 98.1 F (36.7 C) (Oral) | Resp 20 | Ht 1.676 m (5 ' 6") | Wt 88.451 kg (195 lb) | BMI 31.49 kg/m2 | SpO2 95% General appearance: alert, appears stated age, cooperative, no distress. Head: Normocephalic, without obvious abnormality, atraumatic Neck: no adenopathy, no carotid bruit, no JVD, supple, symmetrical, trachea midline and thy roid not enlarged, symmetric, no tenderness/mass/nodules Lungs: clear to auscultation bilaterally,no wheezing no crackles Heart: regular rate and rhythm, S1, S2 normal, no murmur, click, rub or gallop Abdomen: soft, non-tender; bowel sounds normal; no masses, no organomegaly Extremities: extremities normal, atraumatic, no cyanosis or edema Pulses: 2+ and symmetric Neurologic CN 2-12 appears normal. Good equal Motor strength,gait deferred DATA CBC: Lab Results Component Value Date WBC 10.21 05/16/2016 RBC 4.63 05/16/2016 HGB 13.1* 05/16/2016 HCT 38.5* 05/16/2016 MCV 83.1 05/16/2016 MCH 28.2 05/16/2016 MCHC 33.9 05/16/2016 RDW 47.7 05/16/2016 PLT 188 05/16/2016 MPV 7.3 05/16/2016 DIFFTYPE AUTOMATED 05/16/2016 CMP: Lab Results Component Value Date NA 141 05/16/2016 K 3.4* 05/16/2016 CL 103 05/16/2016 CO2 26 05/16/2016 ANIONGAP 15 05/16/2016 GLUF 203* 05/16/2016 BUN 5* 05/16/2016 CREATININE 0.9 05/16/2016 BCR 6 05/16/2016 CA 8.7 05/16/2016 PROT 6.5 05/16/2016 ALB 3.2* 05/16/2016 GLOB 3.3 05/16/2016 BILITOT 0.2 05/16/2016 ALP 60 05/16/2016 AST 80* 05/16/2016 ALT 101* 05/16/2016 EGFR >60 05/16/2016 Results for FELICIANO LEGGETT ( ) as of 05/15/2016 18:14 Ref. Range 05/07/2016 17:13 CRYPTOCOCCUS AB, CSF Latest Units: Titer <1:1 CSF TOTAL PROTEIN Latest Ref Range: 15-45 mg/dL 3380 (H) CSF GLUCOSE Latest Ref Range: 45-90 mg/dL 102 (H) Results for FELICIANO LEGGETT ( ) as of 05/15/2016 18:14 Ref. Range 05/07/2016 17:13 HSV DNA Type 2 Latest Ref Range: Not Detected DETECTED (A) MRI brain 1. Focal areas of FLAIR and T2 hyperintensity involving both caudate heads and the cortic al surfaces of the medial parietal lobes and occipital lobes suspicious for status epileptic us or possibly a viral encephalitis such as herpes encephalitis. CSF evaluation is recomme nded if not already done. 2. Moderate diffuse cerebral atrophy which greater than expected for a 20-year-old male w hich may be related to the history of long-term seizure disorder. head 1. Brain is negative for acute pathology. 2. No abnormal enhancement noted. 3. Normal CT angiogram of the head without evidence of stenosis, occlusion, or aneurysm i n the cerebral arteries. 4. Nonspecific mild to moderate supratentorial volume loss. LEM LIST Principal Problem: Encephalitis due to human herpes simplex virus (HSV) Active Problems: Developmental delay Seizure (HCC) Leukocytosis ADHD (attention deficit hyperactivity disorder) Bipolar disorder, unspecified (HCC) Non-intractable vomiting with nausea ASSESSMENT & PLAN 1. HSV encephalitis on IV acyclovir(planned for 14 days total) end on may 22 as d/w dr.wa avila has to be IV form,his facility is unable to give IV acyclovir.CW working progress 2. 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 Bipolar d/o stable on depakote and, zoloft, bupropion and Seroquel continue all home med s ,follow up on LFTs with PCP 4. ADHD continue home meds 5. HTN controlled overall on clonidine continue to monitor BP and adjust as Needed 6.GI px 7.hypokalemia replete via electrolyte protocol and monitor Disposition: Admitted Code Status: Full Code Floyd Skelton MD 05/16/2016 onversion Transaction, Provider Unknown - 05/16/2016 10:55 AM PSTFormatting of this note might be different from th e original. Case Management by Grant Ambrocio RN at 05/16/16 3199 Author: Grant Ambrocio RN Service: (none) Author Type: Registered Nurse Filed: 05/16/16 1039 Date of Service: 05/16/166 Status: Signed Casing Crew: Grant Ambrocio RN (Registered Nurse) Discharge planning: CM to continue working on discharge planning. It is likely that louise mortensen may have to stay in the hospital for the duration of his IV Acyclovir needs. The patient lives in a court ordered Adult Family Home. He has Medicaid for insurance and multiple refe rrals to SNF's have been sent out with the hopes he can complete his IV Acyclovir there, but has received denials on all of these referrals. His adult family home is unable to admi nister the IV medications. Will continue to make referrals with the hopes of finding placem ent, but it is unlikely, and anticipate the patient may remain in the hospital until the IV Acyclovir is complete and he can return back to his adult family home. onver ellen Transaction, Provider Unknown - 05/16/2016 8:16 AM PST Nurse Progress Note by Yaima Lane RN at 05/16/16 7720 Author: Yaima Lane RN Service: (none) Author Type: Registered Nurse Filed: 05/16/16907 Date of Service: 05/16/16815 Status: Addendum Casing Crew: Yaima Lane RN (Registered Nurse) Related Notes: Original Note by Yaima Lane RN (Registered Nurse) filed at 05/16/16816 0815-Called by nursing to assess picc line. External measurement at 9cm, placement at 4cm. Xray ordered. 0910-Per xray read line still witin proximal svc ok to use. onver ellen Transaction, Provider Unknown - 05/16/2016 5:51 AM PST Progress Notes by Beena Rice RN at 05/16/16550 Author: Beena Rice RN Service: (none) Author Type: Registered Nurse Filed: 05/16/16601 Date of Service: 05/16/16550 Status: Signed Casing Crew: Beena Rice RN (Registered Nurse) PICC dressing found to be partially off with insertion site exposed. Site cleansed and dres sing changed utilizing sterile technique. Line flushes and draws, but unknown if patient pul led at line. PICC line seems longer. Will have lab draw morning labs and notify PICC nurse t o come evaluate line. Beena Rice onver ellen Transaction, Provider Unknown - 05/16/2016 5:43 AM PST Nurse Progress Note by Lori Blue RN at 05/16/16542 Author: Lori Blue RN Service: (none) Author Type: Registered Nurse Filed: 05/16/1644 Date of Service: 05/16/16542 Status: Signed Casing Crew: Lori Blue RN (Registered Nurse) Pt VSS, no acute changes on nights. PICC drsg changed due to pt pulling part of drsg off wh ile sleeping. Lori Blue RN onver ellen Transaction, Provider Unknown - 05/15/2016 4:20 PM PST Nurse Progress Note by Laura Monge RN at 05/15/16 1620 Author: Laura Monge RN Service: (none) Author Type: Registered Nurse Filed: 05/15/16 1621 Date of Service: 05/15/16 1620 Status: Signed Casing Crew: Laura Monge RN (Registered Nurse) Per pt caregiver, [facility] cannot give pt IV acyclovir. LAURA MONGE RN Floyd Rain MD - 05/15/2016 12:14 PM PSTFormatting of this note might be different from the origi nal. Progress Notes by Floyd Skelton MD at 05/15/16 1214 Author: Floyd Skelton MD Service: Hospitalist Author Type: Physician Filed: 05/15/161819 Date of Service: 05/15/164 Status: Signed Casing Crew: Floyd Skelton MD (Physician) [facility] Service: Hospitalist Progress Note Hospital Day: LOS: 9 days Post-Op Day: * No surgery found * SUBJECTIVE Patient Summary: per " 20 yo with a history of DD and bipolar D/O admitted with tonic clonic seizures and found to have occiptal and temporal lobe lesions on MRI and posit meagan HSV 2 on LP c/w HSV encephalitis" Events Overnight: Patient seen and examined,denies headache or blurry vision,denies S OB or CP no abdominal pain,stable VS.addressed all questions. Scheduled Medications acyclovir 10 mg/kg ([place]) Intravenous Q8H buPROPion 300 mg Oral QAM cetirizine 10 mg Oral Daily cloNIDine 0.1 mg Oral Nightly divalproex 1,000 mg Oral TID famotidine 20 mg Oral BID Or famotidine 20 mg Intravenous BID melatonin 3 mg Oral Nightly OLANZapine 5 mg Oral Nightly phenytoin 100 mg Oral Daily with dinner phenytoin 200 mg Oral Daily quetiapine 200 mg Oral Nightly sertraline 200 mg Oral Daily sodium chloride 10 mL Intravenous 2 times per day Continuous Infusions PRN Medications acetaminophen OR acetaminophen, albuterol, bismuth subsalicylate, gadobenate dimeglumin e, HYDROmorphone OR HYDROmorphone, LORazepam, ondansetron OR ondansetron, oxyCODONE- acetaminophen OR oxyCODONE-acetaminophen, polyethylene glycol, sodium chloride 0.9 %, so dium chloride OBJECTIVE Vital Signs: BP 127/88 mmHg | Pulse 122 | Temp(Src) 98.5 F (36.9 C) (Axillary) | Resp 20 | Ht 1.676 m (5' 6") | Wt 88.451 kg (195 lb) | BMI 31.49 kg/m2 | SpO2 98% General appearance: alert, appears stated age, cooperative, no distress and slowed mentatio n Head: Normocephalic, without obvious abnormality, atraumatic Neck: no adenopathy, no carotid bruit, no JVD, supple, symmetrical, trachea midline and thy roid not enlarged, symmetric, no tenderness/mass/nodules Lungs: clear to auscultation bilaterally,no wheezing no crackles Heart: regular rate and rhythm, S1, S2 normal, no murmur, click, rub or gallop Abdomen: soft, non-tender; bowel sounds normal; no masses, no organomegaly Extremities: extremities normal, atraumatic, no cyanosis or edema Pulses: 2+ and symmetric Neurologic CN 2-12 appears normal. Good equal Motor strength,gait deferred DATA CBC: Lab Results Component Value Date WBC 11.10* 05/13/2016 RBC 5.05 05/13/2016 HGB 14.3 05/13/2016 HCT 41.8 05/13/2016 MCV 82.6 05/13/2016 MCH 28.3 05/13/2016 MCHC 34.3 05/13/2016 RDW 46.4 05/13/2016 PLT 161 05/13/2016 MPV 7.1 05/13/2016 DIFFTYPE MANUAL 05/13/2016 CMP: Lab Results Component Value Date NA 142 05/14/2016 K 4.1 05/14/2016 CL 105 05/14/2016 CO2 28 05/14/2016 ANIONGAP 13 05/14/2016 GLUF 90 05/14/2016 BUN 4* 05/14/2016 CREATININE 0.6* 05/14/2016 BCR 7 05/14/2016 CA 9.4 05/14/2016 PROT 6.5 05/14/2016 ALB 3.2* 05/14/2016 GLOB 3.3 05/14/2016 BILITOT 0.2 05/14/2016 ALP 64 05/14/2016 AST 81* 05/14/2016 ALT 96* 05/14/2016 EGFR >60 05/14/2016 Results for FELICIANO LEGGETT ( ) as of 05/15/2016 18:14 Ref. Range 05/07/2016 17:13 CRYPTOCOCCUS AB, CSF Latest Units: Titer <1:1 CSF TOTAL PROTEIN Latest Ref Range: 15-45 mg/dL 3380 (H) CSF GLUCOSE Latest Ref Range: 45-90 mg/dL 102 (H) Results for FELICIANO LEGGETT ( ) as of 05/15/2016 18:14 Ref. Range 05/07/2016 17:13 HSV DNA Type 2 Latest Ref Range: Not Detected DETECTED (A) MRI brain 1. Focal areas of FLAIR and T2 hyperintensity involving both caudate heads and the cortic al surfaces of the medial parietal lobes and occipital lobes suspicious for status epileptic us or possibly a viral encephalitis such as herpes encephalitis. CSF evaluation is recomme nded if not already done. 2. Moderate diffuse cerebral atrophy which [facility] 20[facility] may be related to the history of long-term seizure disorder. head 1. Brain is negative for acute pathology. 2. No abnormal enhancement noted. 3. Normal CT angiogram of the head without evidence of stenosis, occlusion, or aneurysm i n the cerebral arteries. 4. Nonspecific mild to moderate supratentorial volume loss. LEM LIST Principal Problem: Encephalitis due to human herpes simplex virus (HSV) Active Problems: Developmental delay Seizure (HCC) Leukocytosis ADHD (attention deficit hyperactivity disorder) Bipolar disorder, unspecified (HCC) Non-intractable vomiting with nausea ASSESSMENT & PLAN 1. HSV encephalitis on IV acyclovir(planned for 14 days total) end on may 22 as d/w dr.wa avila has to be IV form,his facility is unable to give IV acyclovir. 2. 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 Bipolar d/o stable on depakote and, zoloft, bupropion and Seroquel continue all home med s 4. ADHD 5. HTN controlled on clonidine continue to monitor BP and adjust as Needed 6.GI px Disposition: Admitted Code Status: Full Code Floyd Skelton MD 05/15/2016 onversion Transaction, Provider Unknown - 05/15/2016 9:55 AM PSTFormatting of this note might be different from th e original. Therapy Progress Note by Sheri Duval PT at 05/15/16 0955 Author: Sheri Duval PT Service: (none) Author Type: Physical Therapist Filed: 05/15/16 1004 Date of Service: 05/15/16954 Status: Signed Casing Crew: Sheri Duval PT (Physical Therapist) 05/15/16 0955 PT Last Visit PT Received On 05/15/16 Reason for Treatment Deconditioning Requires PT Follow Up PT tech Other Comments Comments Pt. ambulated with PT tech up to 400' with supervision. 5 minutes spent with pt. onver ellen Transaction, Provider Unknown - 05/15/2016 9:06 AM PST Therapy Progress Note by Sheri Duval PT at 05/15/16 0906 Author: Sheri Duval PT Service: (none) Author Type: Physical Therapist Filed: 05/15/16 0907 Date of Service: 05/15/16 09 Status: Signed Casing Crew: Sheri Duval PT (Physical Therapist) 05/14/16 1442 PT Last Visit PT Received On 05/14/16 Reason for Treatment Deconditioning Requires PT Follow Up PT tech Other Comments Comments Pt. seen by PT tech for 10 minutes for ambulation in hallway with supervision. Pt. ambulating without difficulties. onver ellen Transaction, Provider Unknown - 05/15/2016 4:44 AM PST Nurse Progress Note by Lori Blue RN at 05/15/164 Author: Lori Blue RN Service: (none) Author Type: Registered Nurse Filed: 05/15/169 Date of Service: 05/15/16443 Status: Signed Casing Crew: Lori Blue RN (Registered Nurse) Pt alert & oriented x4, VSS. PRN albuterol given x1 per pt request. No acute changes on nig hts. Sitter at bedside. Lori Blue RN onver ellen Transaction, Provider Unknown - 05/14/2016 6:39 PM PST Nurse Progress Note by Laura Monge RN at 05/14/16 183 Author: Laura Monge RN Service: (none) Author Type: Registered Nurse Filed: 05/14/16 184 Date of Service: 05/14/161838 Status: Signed Casing Crew: Laura Monge RN (Registered Nurse) Pt alert and oriented. Pts caregiver called and stated that pt is to not have any Internet access while he is here d/t his behavioral care plan. Ipad has been taken away. LAURA TERRELL RN onver ellen Transaction, Provider Unknown - 05/14/2016 12:18 PM PST Nurse Progress Note by Laura Monge RN at 05/14/16 1218 Author: Laura Monge RN Service: (none) Author Type: Registered Nurse Filed: 05/14/16 1221 Date of Service: 05/14/168 Status: Signed Casing Crew: Laura Monge RN (Registered Nurse) Pt's caregiver is now in room and will be here until 1700. Sitter d/c'd. LAURA VIVEROS RN eah Sharp MD - 05/14/2016 9:37 AM PSTFormatting of this note might be different from the or iginal. Progress Notes by Jorge Alberto Sharp MD at 05/14/16936 Author: Jorge Alberto Sharp MD Service: Hospitalist Author Type: Physician Filed: 05/14/16938 Date of Service: 05/14/16936 Status: Signed Casing Crew: Jorge Alberto Sharp MD (Physician) [facility] Service: Hospitalist Progress Note Hospital Day: LOS: 8 days Post-Op Day: * No surgery found * SUBJECTIVE Patient Summary: Chart reviewed in detail. Complex case. 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 Subjective: Patient feels well today physically. Has 4 cans of 7 up on his tray and 3 cups of jello. Asking for his head charger for ipad and perseverates. Scheduled Medications acyclovir 10 mg/kg ([place]) Intravenous Q8H buPROPion 300 mg Oral QAM cetirizine 10 mg Oral Daily cloNIDine 0.1 mg Oral Nightly divalproex 1,000 mg Oral TID famotidine 20 mg Oral BID Or famotidine 20 mg Intravenous BID melatonin 3 mg Oral Nightly OLANZapine 5 mg Oral Nightly phenytoin 100 mg Oral Daily with dinner phenytoin 200 mg Oral Daily quetiapine 200 mg Oral Nightly sertraline 200 mg Oral Daily sodium chloride 10 mL Intravenous 2 times per day Continuous Infusions PRN Medications acetaminophen OR acetaminophen, albuterol, bismuth subsalicylate, gadobenate dimeglumin e, HYDROmorphone OR HYDROmorphone, LORazepam, ondansetron OR ondansetron, oxyCODONE- acetaminophen OR oxyCODONE-acetaminophen, polyethylene glycol, sodium chloride 0.9 %, so dium chloride OBJECTIVE Vital Signs: BP 130/86 mmHg | Pulse 111 | Temp(Src) 98.7 F (37.1 C) (Axillary) | Resp 20 | Ht 1.676 m (5' 6") | Wt 90.493 kg (199 lb 8 oz) | BMI 32.22 kg/m2 | SpO2 97% Physical Exam Constitutional: He is oriented to person, place, and time. Cardiovascular: Normal rate and regular rhythm. Pulmonary/Chest: Effort normal and breath sounds normal. Neurological: He is alert and oriented to person, place, and time. No focal deficits : CN 2-12 appears normal. Good equal Motor strenght all 4 ext DATA CBC: Lab Results Component Value Date WBC 11.10* 05/13/2016 RBC 5.05 05/13/2016 HGB 14.3 05/13/2016 HCT 41.8 05/13/2016 MCV 82.6 05/13/2016 MCH 28.3 05/13/2016 MCHC 34.3 05/13/2016 RDW 46.4 05/13/2016 PLT 161 05/13/2016 MPV 7.1 05/13/2016 DIFFTYPE MANUAL 05/13/2016 CMP: Lab Results Component Value Date NA 142 05/14/2016 K 4.1 05/14/2016 CL 105 05/14/2016 CO2 28 05/14/2016 ANIONGAP 13 05/14/2016 GLUF 90 05/14/2016 BUN 4* 05/14/2016 CREATININE 0.6* 05/14/2016 BCR 7 05/14/2016 CA 9.4 05/14/2016 PROT 6.5 05/14/2016 ALB 3.2* 05/14/2016 GLOB 3.3 05/14/2016 BILITOT 0.2 05/14/2016 ALP 64 05/14/2016 AST 81* 05/14/2016 ALT 96* 05/14/2016 EGFR >60 05/14/2016 PROBLEM LIST Principal Problem: Encephalitis due to human herpes simplex virus (HSV) Active Problems: Developmental delay Seizure (HCC) Leukocytosis ADHD (attention deficit hyperactivity disorder) Bipolar disorder, unspecified (HCC) Non-intractable vomiting with nausea ASSESSMENT & PLAN 1. 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 Tonic Clonic seizures 2/2 1. No further seizures 3. Bipolar d/o stable on depakote and, zoloft, bupropion and seroquel 4. ADHD 5. HTN controlled on clonidine PLan: Corrected dilantin levels at 11 which is appropriate Cancel daily labs. Check renal function periodically to ensure no renal toxicity from iv ac yclovir Disposition: Code Status: Full Code Jorge Alberto Sharp MD 05/14/2016 onversion Transactio n, Provider Unknown - 05/14/2016 6:32 AM PST Progress Notes by Beena Rice RN at 05/14/16631 Author: Beena Rice RN Service: (none) Author Type: Registered Nurse Filed: 05/14/16633 Date of Service: 05/14/16631 Status: Signed Casing Crew: Beena Rice RN (Registered Nurse) Patient alert and oriented. Vital signs stable. Patient sitter remains at bedside. Medicate d for pain X 1. See MAR. No acute changes. Visualized hourly. Will continue to monitor. Roamn Rice onver ellen Transaction, Provider Unknown - 05/13/2016 5:20 PM PST Nurse Progress Note by Hardeep Keller RN at 05/13/161719 Author: Hardeep Keller RN Service: (none) Author Type: Registered Nurse Filed: 05/13/161899 Date of Service: 05/13/161719 Status: Signed Casing Crew: Hardeep Keller RN (Registered Nurse) Pt A&O X4, pt had a sitter all day, pt denied pain. Pt c/o SOB and requested his albuterol inhaler; given X1. Pt reported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 section. | + +--------+ + + + | MAGNESIUM | Routin | 05/20/2016 | | Results for this | | | e | 4:28 AM | | procedure are in the | | | | PST | | results section. | + +--------+ + + + | RENAL FUNCTION PANEL | Routin | 05/20/2016 | | Results for this | | | e | 4:28 AM | | procedure are in the | | | | PST | | results section. | + +--------+ + + + | WEST NILE VIRUS AB, | Routin | 05/19/2016 | | Results for this | | IGG, IGM | e | 12:16 PM | | procedure are in the | | | | PST | | results section. | + +--------+ + + + | EXTERNAL LAB: CBC | Routin | 05/19/2016 | | Results for this | | | e | 4:51 AM | | procedure are in the | | | | PST | | results section. | + +--------+ + + + | MAGNESIUM | Routin | 05/19/2016 | | Results for this | | | e | 4:51 AM | | procedure are in the | | | | PST | | results section. | + +--------+ + + + | RENAL FUNCTION PANEL | Routin | 05/19/2016 | | Results for this | | | e | 4:51 AM | | procedure are in the | | | | PST | | results section. | + +--------+ + + + | EXTERNAL LAB: CBC | Routin | 05/18/2016 | | Results for this | | | e | 4:28 AM | | procedure are in the | | | | PST | | results section. | + +--------+ + + + | MAGNESIUM | Routin | 05/18/2016 | | Results for this | | | e | 4:28 AM | | procedure are in the | | | | PST | | results section. | + +--------+ + + + | RENAL FUNCTION PANEL | Routin | 05/18/2016 | | Results for this | | | e | 4:28 AM | | procedure are in the | | | | PST | | results section. | + +--------+ + + + | EXTERNAL LAB: CBC | Routin | 05/17/2016 | | Results for this | | | e | 4:58 AM | | procedure are in the | | | | PST | | results section. | + +--------+ + + + | MAGNESIUM | Routin | 05/17/2016 | | Results for this | | | e | 4:58 AM | | procedure are in the | | | | PST | | results section. | + +--------+ + + + | RENAL FUNCTION PANEL | Routin | 05/17/2016 | | Results for this | | | e | 4:58 AM | | procedure are in the | | | | PST | | results section. | + +--------+ + + + | POTASSIUM | Routin | 05/16/2016 | | Results for this | | | e | 7:41 PM | | procedure are in the | | | | PST | | results section. | + +--------+ + + + | XR CHEST 1 VIEW | Routin | 05/16/2016 | | Results for this | | | e | 8:30 AM | | procedure are in the | | | | PST | | results section. | + +--------+ + + + | EXTERNAL LAB: CBC | Routin | 05/16/2016 | | Results for this | | | e | 6:01 AM | | procedure are in the | | | | PST | | results section. | + +--------+ + + + | PHOSPHORUS | Routin | 05/16/2016 | | Results for this | | | e | 6:01 AM | | procedure are in the | | | | PST | | results section. | + +--------+ + + + | MAGNESIUM | Routin | 05/16/2016 | | Results for this | | | e | 6:01 AM | | procedure are in the | | | | PST | | results section. | + +--------+ + + + | COMPREHENSIVE | Routin | 05/16/2016 | | Results for this | | METABOLIC PANEL | e | 6:01 AM | | procedure are in the | | | | PST | | results section. | + +--------+ + + + | PHENYTOIN LEVEL, | Routin | 05/14/2016 | | Results for this | | TOTAL | e | 5:34 AM | | procedure are in the | | | | PST | | results section. | + +--------+ + + + | COMPREHENSIVE | Routin | 05/14/2016 | | Results for this | | METABOLIC PANEL | e | 5:34 AM | | procedure are in the | | | | PST | | results section. | + +--------+ + + + | CBC WITH MANUAL | Routin | 05/13/2016 | | Results for this | | DIFFERENTIAL | e | 5:09 AM | | procedure are in the | | | | PST | | results section. | + +--------+ + + + | BASIC METABOLIC | Routin | 05/13/2016 | | Results for this | | PANEL | e | 5:09 AM | | procedure are in the | | | | PST | | results section. | + +--------+ + + + | ECG 12 LEAD | Routin | 05/11/2016 | | Results for this | | | e | 1:35 PM | | procedure are in the | | | | PST | | results section. | + +--------+ + + + | CBC WITH MANUAL | Routin | 05/09/2016 | | Results for this | | DIFFERENTIAL | e | 4:14 AM | | procedure are in the | | | | PST | | results section. | + +--------+ + + + | PHENYTOIN LEVEL, | Routin | 05/09/2016 | | Results for this | | TOTAL | e | 4:14 AM | | procedure are in the | | | | PST | | results section. | + +--------+ + + + | BASIC METABOLIC | Routin | 05/09/2016 | | Results for this | | PANEL | e | 4:14 AM | | procedure are in the | | | | PST | | results section. | + +--------+ + + + | HIV 1 SCREEN, RAPID | Routin | 05/08/2016 | | Results for this | | | e | 10:49 AM | | procedure are in the | | | | PST | | results section. | + +--------+ + + + | RAPID PLASMA REAGIN, | Routin | 05/08/2016 | | Results for this | | QUANT | e | 10:49 AM | | procedure are in the | | | | PST | | results section. | + +--------+ + + + | CRYPTOCOCCAL ANTIGEN | Routin | 05/08/2016 | | Results for this | | | e | 10:49 AM | | procedure are in the | | | | PST | | results section. | + +--------+ + + + | CBC NO DIFFERENTIAL | Routin | 05/08/2016 | | Results for this | | | e | 4:06 AM | | procedure are in the | | | | PST | | results section. | + +--------+ + + + | PHENYTOIN LEVEL, | Routin | 05/08/2016 | | Results for this | | TOTAL | e | 4:06 AM | | procedure are in the | | | | PST | | results section. | + +--------+ + + + | COMPREHENSIVE | Routin | 05/08/2016 | | Results for this | | METABOLIC PANEL | e | 4:06 AM | | procedure are in the | | | | PST | | results section. | + +--------+ + + + | CT ANGIOGRAM HEAD W | Routin | 05/07/2016 | | Results for this | | CONTRAST | e | 8:49 PM | | procedure are in the | | | | PST | | results section. | + +--------+ + + + | CULTURE, CSF, SMEAR | Timed | 05/07/2016 | | Results for this | | | | 5:14 PM | | procedure are in the | | | | PST | | results section. | + +--------+ + + + | HISTORICAL | Timed | 05/07/2016 | | Results for this | | MICROBIOLOGY RESULT | | 5:13 PM | | procedure are in the | | | | PST | | results section. | + +--------+ + + + | CRYPTOCOCCUS AB, | Timed | 05/07/2016 | | Results for this | | TOTAL, CSF | | 5:13 PM | | procedure are in the | | | | PST | | results section. | + +--------+ + + + | PROTEIN, CSF | Timed | 05/07/2016 | | Results for this | | | | 5:13 PM | | procedure are in the | | | | PST | | results section. | + +--------+ + + + | GLUCOSE, CSF | Timed | 05/07/2016 | | Results for this | | | | 5:13 PM | | procedure are in the | | | | PST | | results section. | + +--------+ + + + | FL LUMBAR PUNCTURE | Routin | 05/07/2016 | | Results for this | | DIAGNOSTIC | e | 5:12 PM | | procedure are in the | | | | PST | | results section. | + +--------+ + + + | EXTERNAL LAB: CBC | Routin | 05/07/2016 | | Results for this | | | e | 1:40 PM | | procedure are in the | | | | PST | | results section. | + +--------+ + + + | PROTIME INR | Routin | 05/07/2016 | | Results for this | | | e | 1:40 PM | | procedure are in the | | | | PST | | results section. | + +--------+ + + + | MRI BRAIN WO | Routin | 05/07/2016 | | Results for this | | CONTRAST | e | 11:50 AM | | procedure are in the | | | | PST | | results section. | + +--------+ + + + | ALBUMIN | Routin | 05/07/2016 | | Results for this | | | e | 10:39 AM | | procedure are in the | | | | PST | | results section. | + +--------+ + + + | PHENYTOIN LEVEL, | Routin | 05/07/2016 | | Results for this | | TOTAL | e | 10:39 AM | | procedure are in the | | | | PST | | results section. | + +--------+ + + + | EXTERNAL LAB: CBC | Routin | 05/07/2016 | | Results for this | | | e | 4:21 AM | | procedure are in the | | | | PST | | results section. | + +--------+ + + + | PHOSPHORUS | Routin | 05/07/2016 | | Results for this | | | e | 4:21 AM | | procedure are in the | | | | PST | | results section. | + +--------+ + + + | MAGNESIUM | Routin | 05/07/2016 | | Results for this | | | e | 4:21 AM | | procedure are in the | | | | PST | | results section. | + +--------+ + + + | BASIC METABOLIC | Routin | 05/07/2016 | | Results for this | | PANEL | e | 4:21 AM | | procedure are in the | | | | PST | | results section. | + +--------+ + + + documented in this encounter Results External Lab: CBC (05/22/2016 4:11 AM PST) + + + + + + | Component | Value | Ref Range | Performed | Pathologist | | | | | At | Signature | + + + + + + | WBC | 7.45Comment: Testing | 3.80 - 11.00 | EXTERNAL | | | | performed at [facility], [address] | K/uL | LAB | | | | [address], | | | | | | [place] [address] | | | | + + + + + + | RED CELL | 4.42Comment: Testing | 4.20 - 5.70 | EXTERNAL | | | COUNT | performed at [facility], [address] | M/uL | LAB | | | | [address], | | | | | | [place] [address] | | | | + + + + + + | Hgb | 12.9 (L)Comment: Testing | 13.2 - 17.0 | EXTERNAL | | | | performed at [facility], [address] | g/dL | LAB | | | | [address], | | | | | | [place] [address] | | | | + + + + + + | Hematocrit, | 38.0 (L)Comment: Testing | 39.0 - 50.0 % | EXTERNAL | | | POC | performed at [facility], [address] | | LAB | | | | [address], | | | | | | [place] [address] | | | | + + + + + + | MCV | 86.0Comment: Testing | 80.0 - 100.0 fl | EXTERNAL | | | | performed at [facility], [address] | | LAB | | | | [address], | | | | | | [place] [address] | | | | + + + + + + | MCH | 29.3Comment: Testing | 27.0 - 34.0 pg | EXTERNAL | | | | performed at [facility], [address] | | LAB | | | | [address], | | | | | | [place] [address] | | | | + + + + + + | MCHC | 34.0Comment: Testing | 32.0 - 35.5 | EXTERNAL | | | | performed at [facility], [address] | g/dL | LAB | | | | [address], | | | | | | [place] [address] | | | | + + + + + + | RDW-CV | 52.5Comment: Testing | 37 - 53 fl | EXTERNAL | | | | performed at [facility], [address] | | LAB | | | | [address], | | | | | | [place] [address] | | | | + + + + + + | Platelet | 223Comment: Testing | 150 - 400 K/uL | EXTERNAL | | | Count | performed at [facility], [address] | | LAB | | | Plasma | [address], | | | | | | [place] [address] | | | | + + + + + + | MPV | 7.6Comment: Testing | fl | EXTERNAL | | | | performed at [facility], [address] | | LAB | | | | [address], | | | | | | [place] [address] | | | | + + + + + + | Differentia | AUTOMATEDComment: | | EXTERNAL | | | l Type | Testing performed at | | LAB | | | | [facility], [address] | | | | | | [place] | | | | | | [address] | | | | + + + + + + | % Segmented | 46.22Comment: Testing | % | EXTERNAL | | | | performed at [facility], [address] | | LAB | | | Neutrophils | [address], | | | | | | [place] [address] | | | | + + + + + + | % | 31.78Comment: Testing | % | EXTERNAL | | | Lymphocytes | performed at [facility], [address] | | LAB | | | | [address], | | | | | | [place] [address] | | | | + + + + + + | % Monocytes | 18.51Comment: Testing | % | EXTERNAL | | | | performed at [facility], [address] | | LAB | | | | [address], | | | | | | [place] [address] | | | | + + + + + + | % | 3.34Comment: Testing | % | EXTERNAL | | | Eosinophils | performed at [facility], [address] | | LAB | | | | [address], | | | | | | [place] [address] | | | | + + + + + + | % Basophils | 0.15Comment: Testing | % | EXTERNAL | | | | performed at [facility], [address] | | LAB | | | | [address], | | | | | | [place] [address] | | | | + + + + + + | Absolute | 3.44Comment: Testing | 1.90 - 7.40 | EXTERNAL | | | Segmented | performed at [facility], [address] | K/uL | LAB | | | Neutrophils | [address], | | | | | | [place] [address] | | | | + + + + + + | Absolute | 2.37Comment: Testing | 1.00 - 3.90 | EXTERNAL | | | Lymphocytes | performed at [facility], [address] | K/uL | LAB | | | | [address], | | | | | | [place] [address] | | | | + + + + + + | Absolute | 1.38 (H)Comment: Testing | 0.00 - 0.80 | EXTERNAL | | | Monocytes | performed at [facility], [address] | K/uL | LAB | | | | [address], | | | | | | [place] [address] | | | | + + + + + + | Absolute | 0.25Comment: Testing | 0.00 - 0.50 | EXTERNAL | | | Eosinophils | performed at [facility], [address] | K/uL | LAB | | | | [address], | | | | | | [place] [address] | | | | + + + + + + | Absolute | 0.01Comment: Testing | 0.00 - 0.10 | EXTERNAL | | | Basophils | performed at [facility], [address] | K/uL | LAB | | | | [address], | | | | | | [place] [address] | | | | + + + + + + + + | Specimen | + + | Blood specimen | | (specimen) | + + + +---------+ + + | Performing | Address | City/State/Zipcode | Phone Number | | Organization | | | | + +---------+ + + | EXTERNAL LAB | | | | + +---------+ + + Phosphorus (05/22/2016 4:11 AM PST) + + + + + + | Component | Value | Ref Range | Performed | Pathologist | | | | | At | Signature | + + + + + + | PHOSPHORUS | 5.6 (H)Comment: SPECIMEN | 2.3 - 4.8 mg/dL | EXTERNAL | | | | SLIGHTLY | | LAB | | | | HEMOLYZEDTesting | | | | | | performed at [facility], [address] | | | | | | [address], | | | | | | [place] [address] | | | | + + + + + + + + | Specimen | + + | | + + + +---------+ + + | Performing | Address | City/State/Zipcode | Phone Number | | Organization | | | | + +---------+ + + | EXTERNAL LAB | | | | + +---------+ + + Magnesium (05/22/2016 4:11 AM PST) + + + + + + | Component | Value | Ref Range | Performed | Pathologist | | | | | At | Signature | + + + + + + | Magnesium | 2.3Comment: SPECIMEN | 1.7 - 2.4 mg/dL | EXTERNAL | | | | SLIGHTLY | | LAB | | | | HEMOLYZEDTesting | | | | | | performed at [facility], [address] | | | | | | [address], | | | | | | [place] [address] | | | | + + + + + + + + | Specimen | + + | Blood specimen | | (specimen) | + + + +---------+ + + | Performing | Address | City/State/Zipcode | Phone Number | | Organization | | | | + +---------+ + + | EXTERNAL LAB | | | | + +---------+ + + Comprehensive Metabolic Panel (05/22/2016 4:11 AM PST) + + + + + + | Component | Value | Ref Range | Performed | Pathologist | | | | | At | Signature | + + + + + + | Na | 142Comment: Testing | 135 - 145 | EXTERNAL | | | | performed at [facility], [address] | mmol/L | LAB | | | | [address], | | | | | | [place] [address] | | | | + + + + + + | K | 4.6Comment: SPECIMEN | 3.5 - 4.9 | EXTERNAL | | | | SLIGHTLY | mmol/L | LAB | | | | HEMOLYZEDTesting | | | | | | performed at [facility], [address] | | | | | | [address], | | | | | | [place] [address] | | | | + + + + + + | Cl | 105Comment: Testing | 99 - 109 mmol/L | EXTERNAL | | | | performed at [facility], [address] | | LAB | | | | [address], | | | | | | [place] [address] | | | | + + + + + + | CO2 | 28Comment: Testing | 23 - 32 mmol/L | EXTERNAL | | | | performed at [facility], [address] | | LAB | | | | [address], | | | | | | [place] [address] | | | | + + + + + + | Anion Gap | 14Comment: Testing | 5 - 20 mmol/L | EXTERNAL | | | | performed at [facility], [address] | | LAB | | | | [address], | | | | | | [place] [address] | | | | + + + + + + | Glucose, | 103 (H)Comment: SPECIMEN | 65 - 99 mg/dL | EXTERNAL | | | Fasting | SLIGHTLY | | LAB | | | | HEMOLYZEDTesting | | | | | | performed at [facility], [address] | | | | | | [address], | | | | | | [place] [address] | | | | + + + + + + | BUN | 8Comment: Testing | 8 - 25 mg/dL | EXTERNAL | | | | performed at [facility], [address] | | LAB | | | | [address], | | | | | | [place] [address] | | | | + + + + + + | Creatinine | 0.7Comment: SPECIMEN | 0.70 - 1.30 | EXTERNAL | | | | SLIGHTLY | mg/dL | LAB | | | | HEMOLYZEDTesting | | | | | | performed at [facility], [address] | | | | | | [address], | | | | | | [place] [address] | | | | + + + + + + | BUN/Creatin | 11Comment: Testing | | EXTERNAL | | | ine Ratio | performed at [facility], [address] | | LAB | | | | [address], | | | | | | [place] [address] | | | | + + + + + + | Calcium | 8.9Comment: Testing | 8.5 - 10.5 | EXTERNAL | | | | performed at [facility], [address] | mg/dL | LAB | | | | [address], | | | | | | [place] [address] | | | | + + + + + + | Protein, | 6.5Comment: Testing | 6.3 - 8.2 g/dL | EXTERNAL | | | Total | performed at [facility], [address] | | LAB | | | | [address], | | | | | | [place] [address] | | | | + + + + + + | Albumin | 3.0 (L)Comment: Testing | 3.6 - 5.0 g/dL | EXTERNAL | | | | performed at [facility], [address] | | LAB | | | | [address], | | | | | | [place] [address] | | | | + + + + + + | Globulin | 3.5Comment: Testing | 1.3 - 4.9 g/dL | EXTERNAL | | | | performed at [facility], [address] | | LAB | | | | [address], | | | | | | [place] [address] | | | | + + + + + + | A/G Ratio | 0.9 (L)Comment: Testing | 1.0 - 2.4 | EXTERNAL | | | | performed at [facility], [address] | | LAB | | | | [address], | | | | | | [place] [address] | | | | + + + + + + | Bilirubin | 0.3Comment: SPECIMEN | 0.1 - 1.5 mg/dL | EXTERNAL | | | Total | SLIGHTLY | | LAB | | | | HEMOLYZEDTesting | | | | | | performed at [facility], [address] | | | | | | [address], | | | | | | [place] [address] | | | | + + + + + + | ALP, | 53Comment: Testing | 35 - 115 U/L | EXTERNAL | | | External | performed at [facility], [address] | | LAB | | | | [address], | | | | | | [place] [address] | | | | + + + + + + | AST | 93 (H)Comment: SPECIMEN | 10 - 45 U/L | EXTERNAL | | | | SLIGHTLY | | LAB | | | | HEMOLYZEDTesting | | | | | | performed at [facility], [address] | | | | | | [address], | | | | | | [place] [address] | | | | + + + + + + | ALT | 101 (H)Comment: SPECIMEN | 10 - 65 U/L | EXTERNAL | | | | SLIGHTLY | | LAB | | | | HEMOLYZEDTesting | | | | | | performed at [facility], [address] | | | | | | [email or web address], | | | | | | [place] [address] | | | | + + + + + + | Estimated | >60Comment: GFR <60: | mL/min/1.73m2 | EXTERNAL | | | GFR | CHRONIC KIDNEY DISEASE, | | LAB | | | | IF FOUND OVER A 3 MONTH | | | | | | PERIOD.GFR <15: KIDNEY | | | | | | FAILURE.FOR | | | | | | AMERICANS, MULTIPLY THE | | | | | | CALCULATED GFR BY | | | | | | 1.210.Testing performed | | | | | | at [facility], [address] | | | | | | [email or web address], | | | | | | [place] [address] | | | | + + + + + + + + | Specimen | + + | Blood specimen | | (specimen) | + + + +---------+ + + | Performing | Address | City/State/Zipcode | Phone Number | | Organization | | | | + +---------+ + + | EXTERNAL LAB | | | | + +---------+ + + Hepatitis Panel, Chronic (05/21/2016 4:10 AM PST) + + + + + + | Component | Value | Ref Range | Performed | Pathologist | | | | | At | Signature | + + + + + + | Hep A Total | REACTIVE (A)Comment: | | EXTERNAL | | | Ab Interp | Testing performed at | | LAB | | | | [facility], [address] | | | | | | [place] | | | | | | [address] | | | | + + + + + + | HEP B | NON REACTIVEComment: | | EXTERNAL | | | SURFACE | Testing performed at | | LAB | | | ANTIBODY | [facility], [address] [facility] | | | | | | [place] | | | | | | [address] | | | | + + + + + + | Hepatitis B | NON REACTIVEComment: | | EXTERNAL | | | Core Ab | Testing performed at | | LAB | | | Total | [facility], [address] [facility] | | | | | | [place] | | | | | | [address] | | | | + + + + + + | HEP B | <0.35Comment: <1.00 | IV | EXTERNAL | | | SURFACE | Non Immune1.00 | | LAB | | | ANTIBODY | OR MORE Indicates | | | | | | vaccine response or | | | | | | response to HBV | | | | | | infection. An Index | | | | | | Value (IV) of 1.00 is | | | | | | equivalent to 10 mIU/mL. | | | | | | Samples with an IV of | | | | | | 1.00 or greater are | | | | | | considered reactive | | | | | | (protected) in | | | | | | accordance with CDC | | | | | | Guidelines.Testing | | | | | | performed at [facility], [address] | | | | | | [facility] [address], | | | | | | [place] [address] | | | | + + + + + + | HCV Ab | NON REACTIVEComment: | | EXTERNAL | | | | Testing performed at | | LAB | | | | [facility], [address] [place] [address] | | | | | | [place] | | | | | | [address] | | | | + + + + + + | Hepatitis | Current or past HAV | | EXTERNAL | | | Interpretat | infection. No serologic | | LAB | | | ion | evidence of HCV | | | | | | infection or HBV | | | | | | infection or | | | | | | vaccination.Comment: | | | | | | Testing performed at | | | | | | [facility], [address] [place] [address] | | | | | | [place] | | | | | | [address] | | | | + + + + + + + + | Specimen | + + | | + + + +---------+ + + | Performing | Address | City/State/Zipcode | Phone Number | | Organization | | | | + +---------+ + + | EXTERNAL LAB | | | | + +---------+ + + External Lab: CBC (05/21/2016 4:10 AM PST) + + + + + + | Component | Value | Ref Range | Performed | Pathologist | | | | | At | Signature | + + + + + + | WBC | 9.67Comment: Testing | 3.80 - 11.00 | EXTERNAL | | | | performed at [facility], [address] | K/uL | LAB | | | | [address], | | | | | | [place] [address] | | | | + + + + + + | RED CELL | 4.28Comment: Testing | 4.20 - 5.70 | EXTERNAL | | | COUNT | performed at [facility], [address] | M/uL | LAB | | | | [address], | | | | | | [place] [address] | | | | + + + + + + | Hgb | 12.3 (L)Comment: Testing | 13.2 - 17.0 | EXTERNAL | | | | performed at [facility], [address] | g/dL | LAB | | | | [address], | | | | | | [place] [address] | | | | + + + + + + | Hematocrit, | 36.6 (L)Comment: Testing | 39.0 - 50.0 % | EXTERNAL | | | POC | performed at [facility], [address] | | LAB | | | | [address], | | | | | | [place] [address] | | | | + + + + + + | MCV | 85.4Comment: Testing | 80.0 - 100.0 fl | EXTERNAL | | | | performed at [facility], [address] | | LAB | | | | [address], | | | | | | [place] [address] | | | | + + + + + + | MCH | 28.7Comment: Testing | 27.0 - 34.0 pg | EXTERNAL | | | | performed at [facility], [address] | | LAB | | | | [address], | | | | | | [place] [address] | | | | + + + + + + | MCHC | 33.6Comment: Testing | 32.0 - 35.5 | EXTERNAL | | | | performed at [facility], [address] | g/dL | LAB | | | | [address], | | | | | | [place] [address] | | | | + + + + + + | RDW-CV | 52.5Comment: Testing | 37 - 53 fl | EXTERNAL | | | | performed at [facility], [address] | | LAB | | | | [address], | | | | | | [place] [address] | | | | + + + + + + | Platelet | 217Comment: Testing | 150 - 400 K/uL | EXTERNAL | | | Count | performed at [facility], [address] | | LAB | | | Plasma | [address], | | | | | | [place] [address] | | | | + + + + + + | MPV | 7.7Comment: Testing | fl | EXTERNAL | | | | performed at [facility], [address] | | LAB | | | | [address], | | | | | | [place] [address] | | | | + + + + + + | Differentia | AUTOMATEDComment: | | EXTERNAL | | | l Type | Testing performed at | | LAB | | | | [facility], [address] [address] | | | | | | [place] | | | | | | [address] | | | | + + + + + + | % Segmented | 55.01Comment: Testing | % | EXTERNAL | | | | performed at [facility], [address] | | LAB | | | Neutrophils | [address], | | | | | | [place] [address] | | | | + + + + + + | % | 22.69Comment: Testing | % | EXTERNAL | | | Lymphocytes | performed at [facility], [address] | | LAB | | | [address], | | | | | | [place] [address] | | | | + + + + + + | % Monocytes | 19.57Comment: Testing | % | EXTERNAL | | | | performed at [facility], [address] | | LAB | | | | [address], | | | | | | [place] [address] | | | | + + + + + + | % | 2.37Comment: Testing | % | EXTERNAL | | | Eosinophils | performed at [facility], [address] | | LAB | | | | [address], | | | | | | [place] [address] | | | | + + + + + + | % Basophils | 0.36Comment: Testing | % | EXTERNAL | | | | performed at [facility], [address] | | LAB | | | | [address], | | | | | | [place] [address] | | | | + + + + + + | Absolute | 5.32Comment: Testing | 1.90 - 7.40 | EXTERNAL | | | Segmented | performed at [facility], [address] | K/uL | LAB | | | Neutrophils | [address], | | | | | | [place], [place] [address] | | | | + + + + + + | Absolute | 2.20Comment: Testing | 1.00 - 3.90 | EXTERNAL | | | Lymphocytes | performed at [facility], [address] | K/uL | LAB | | | | [address], | | | | | | [place] [address] | | | | + + + + + + | Absolute | 1.89 (H)Comment: Testing | 0.00 - 0.80 | EXTERNAL | | | Monocytes | performed at [facility], [address] | [address] | LAB | | | | [address], | | | | | | [place] [address] | | | | + + + + + + | Absolute | 0.23Comment: Testing | 0.00 - 0.50 | EXTERNAL | | | Eosinophils | performed at [facility], [address] | K/uL | LAB | | | | [address], | | | | | | [place] [address] | | | | + + + + + + | Absolute | 0.04Comment: Testing | 0.00 - 0.10 | EXTERNAL | | | Basophils | performed at [facility], [address] | K/uL | LAB | | | | [address], | | | | | | [place] [address] | | | | + + + + + + + + | Specimen | + + | Blood specimen | | (specimen) | + + + +---------+ + + | Performing | Address | City/State/Zipcode | Phone Number | | Organization | | | | + +---------+ + + | EXTERNAL LAB | | | | + +---------+ + + TSH (05/21/2016 4:10 AM PST) + + + + + + | Component | Value | Ref Range | Performed | Pathologist | | | | | At | Signature | + + + + + + | TSH | 3.52Comment: Testing | 0.45 - 5.10 | EXTERNAL | | | | performed at [facility], [address] | uIU/mL | LAB | | | | [address], | | | | | | [place] [address] | | | | + + + + + + + + | Specimen | + + | Blood specimen | | (specimen) | + + + +---------+ + + | Performing | Address | City/State/Zipcode | Phone Number | | Organization | | | | + +---------+ + + | EXTERNAL LAB | | | | + +---------+ + + Phosphorus (05/21/2016 4:10 AM PST) + + + + + + | Component | Value | Ref Range | Performed | Pathologist | | | | | At | Signature | + + + + + + | PHOSPHORUS | 5.7 (H)Comment: Testing | 2.3 - 4.8 mg/dL | EXTERNAL | | | | performed at [facility], [address] | | LAB | | | | [address], | | | | | | [place] [address] | | | | + + + + + + + + | Specimen | + + | | + + + +---------+ + + | Performing | Address | City/State/Zipcode | Phone Number | | Organization | | | | + +---------+ + + | EXTERNAL LAB | | | | + +---------+ + + Magnesium (05/21/2016 4:10 AM PST) + + + + + + | Component | Value | Ref Range | Performed | Pathologist | | | | | At | Signature | + + + + + + | Magnesium | 2.4Comment: Testing | 1.7 - 2.4 mg/dL | EXTERNAL | | | | performed at [facility], [address] | | LAB | | | | [address], | | | | | | [place] [address] | | | | + + + + + + + + | Specimen | + + | Blood specimen | | (specimen) | + + + +---------+ + + | Performing | Address | City/State/Zipcode | Phone Number | | Organization | | | | + +---------+ + + | EXTERNAL LAB | | | | + +---------+ + + Valproic Acid Level (05/21/2016 4:10 AM PST) + + + + + + | Component | Value | Ref Range | Performed | Pathologist | | | | | At | Signature | + + + + + + | Date of | UNKNOWNComment: Testing | | EXTERNAL | | | Last Dose | performed at [facility];[address] | | LAB | | | | [address];[place] | | | | | | [address] | | | | + + + + + + | Time of | UNKNOWNComment: Testing | | EXTERNAL | | | Last Dose | performed at [facility];[address] | | LAB | | | | [address];[place] | | | | | | [address] | | | | + + + + + + | Valproic | 97Comment: Testing | 50 - 100 ug/mL | EXTERNAL | | | Acid Lvl | performed at [facility];[address] | | LAB | | | | [address];[place] | | | | | | [address] | | | | + + + + + + + + | Specimen | + + | Blood specimen | | (specimen) | + + + +---------+ + + | Performing | Address | City/State/Zipcode | Phone Number | | Organization | | | | + +---------+ + + | EXTERNAL LAB | | | | + +---------+ + + Comprehensive Metabolic Panel (05/21/2016 4:10 AM PST) + + + + + + | Component | Value | Ref Range | Performed | Pathologist | | | | | At | Signature | + + + + + + | Na | 141Comment: Testing | 135 - 145 | EXTERNAL | | | | performed at [facility], [address] | mmol/L | LAB | | | | [address], | | | | | | [place] [address] | | | | + + + + + + | K | 4.2Comment: Testing | 3.5 - 4.9 | EXTERNAL | | | | performed at [facility], [address] | mmol/L | LAB | | | | [address], | | | | | | [place] [address] | | | | + + + + + + | Cl | 106Comment: Testing | 99 - 109 mmol/L | EXTERNAL | | | | performed at [facility], [address] | | LAB | | | | [address], | | | | | | [place] [address] | | | | + + + + + + | CO2 | 24Comment: Testing | 23 - 32 mmol/L | EXTERNAL | | | | performed at [facility], [address] | | LAB | | | | [address], | | | | | | [place] [address] | | | | + + + + + + | Anion Gap | 15Comment: Testing | 5 - 20 mmol/L | EXTERNAL | | | | performed at [facility], [address] | | LAB | | | | [address], | | | | | | [place] [address] | | | | + + + + + + | Glucose, | 103 (H)Comment: Testing | 65 - 99 mg/dL | EXTERNAL | | | Fasting | performed at [facility], [address] | | LAB | | | | [address], | | | | | | [place] [address] | | | | + + + + + + | BUN | 6 (L)Comment: Testing | 8 - 25 mg/dL | EXTERNAL | | | | performed at [facility], [address] | | LAB | | | | [address], | | | | | | [place] [address] | | | | + + + + + + | Creatinine | 0.6 (L)Comment: Testing | 0.70 - 1.30 | EXTERNAL | | | | performed at [facility], [address] | mg/dL | LAB | | | | [address], | | | | | | [place] [address] | | | | + + + + + + | BUN/Creatin | 10Comment: Testing | | EXTERNAL | | | ine Ratio | performed at [facility], [address] | | LAB | | | | [address], | | | | | | [place] [address] | | | | + + + + + + | Calcium | 9.0Comment: Testing | 8.5 - 10.5 | EXTERNAL | | | | performed at [facility], [address] | mg/dL | LAB | | | | [address], | | | | | | [place] [address] | | | | + + + + + + | Protein, | 6.2 (L)Comment: Testing | 6.3 - 8.2 g/dL | EXTERNAL | | | Total | performed at [facility], [address] | | LAB | | | | [address], | | | | | | [place] [address] | | | | + + + + + + | Albumin | 3.0 (L)Comment: Testing | 3.6 - 5.0 g/dL | EXTERNAL | | | | performed at [facility], [address] | | LAB | | | | [address], | | | | | | [place] [address] | | | | + + + + + + | Globulin | 3.2Comment: Testing | 1.3 - 4.9 g/dL | EXTERNAL | | | | performed at [facility], [address] | | LAB | | | | [address], | | | | | | [place] [address] | | | | + + + + + + | A/G Ratio | 0.9 (L)Comment: Testing | 1.0 - 2.4 | EXTERNAL | | | | performed at [facility], [address] | | LAB | | | | [address], | | | | | | [place] [address] | | | | + + + + + + | Bilirubin | 0.3Comment: Testing | 0.1 - 1.5 mg/dL | EXTERNAL | | | Total | performed at [facility], [address] | | LAB | | | | [address], | | | | | | [place] [address] | | | | + + + + + + | ALP, | 51Comment: Testing | 35 - 115 U/L | EXTERNAL | | | External | performed at [facility], [address] | | LAB | | | | [address], | | | | | | [place] [address] | | | | + + + + + + | AST | 86 (H)Comment: Testing | 10 - 45 U/L | EXTERNAL | | | | performed at [facility], [address] | | LAB | | | | [address], | | | | | | [place] [address] | | | | + + + + + + | ALT | 105 (H)Comment: Testing | 10 - 65 U/L | EXTERNAL | | | | performed at [facility], [address] | | LAB | | | | [facility], | | | | | | [place] [address] | | | | + + + + + + | Estimated | >60Comment: GFR <60: | mL/min/1.73m2 | EXTERNAL | | | GFR | CHRONIC KIDNEY DISEASE, | | LAB | | | | IF FOUND OVER A 3 MONTH | | | | | | PERIOD.GFR <15: KIDNEY | | | | | | FAILURE.FOR | | | | | | AMERICANS, MULTIPLY THE | | | | | | CALCULATED GFR BY | | | | | | 1.210.Testing performed | | | | | | at [facility], [address] | | | | | | [facility], | | | | | | [place] [address] | | | | + + + + + + + + | Specimen | + + | Blood specimen | | (specimen) | + + + +---------+ + + | Performing | Address | City/State/Zipcode | Phone Number | | Organization | | | | + +---------+ + + | EXTERNAL LAB | | | | + +---------+ + + External Lab: CBC (05/20/2016 4:28 AM PST) + + + + + + | Component | Value | Ref Range | Performed | Pathologist | | | | | At | Signature | + + + + + + | WBC | 9.90Comment: Testing | 3.80 - 11.00 | EXTERNAL | | | | performed at [facility], [address] | K/uL | LAB | | | | [address], | | | | | | [place] [address] | | | | + + + + + + | RED CELL | 4.48Comment: Testing | 4.20 - 5.70 | EXTERNAL | | | COUNT | performed at [facility], [address] | M/uL | LAB | | | | [address], | | | | | | [place] [address] | | | | + + + + + + | Hgb | 13.0 (L)Comment: Testing | 13.2 - 17.0 | EXTERNAL | | | | performed at [facility], [address] | g/dL | LAB | | | | [address], | | | | | | [place] [address] | | | | + + + + + + | Hematocrit, | 38.2 (L)Comment: Testing | 39.0 - 50.0 % | EXTERNAL | | | POC | performed at [facility], [address] | | LAB | | | | [address], | | | | | | [place] [address] | | | | + + + + + + | MCV | 85.4Comment: Testing | 80.0 - 100.0 fl | EXTERNAL | | | | performed at [facility], [address] | | LAB | | | | [address], | | | | | | [place] [address] | | | | + + + + + + | MCH | 29.1Comment: Testing | 27.0 - 34.0 pg | EXTERNAL | | | | performed at [facility], [address] | | LAB | | | | [address], | | | | | | [place] [address] | | | | + + + + + + | MCHC | 34.1Comment: Testing | 32.0 - 35.5 | EXTERNAL | | | | performed at [facility], [address] | g/dL | LAB | | | | [address], | | | | | | [place] [address] | | | | + + + + + + | RDW-CV | 51.6Comment: Testing | 37 - 53 fl | EXTERNAL | | | | performed at [facility], [address] | | LAB | | | | [address], | | | | | | [place] [address] | | | | + + + + + + | Platelet | 231Comment: Testing | 150 - 400 K/uL | EXTERNAL | | | Count | performed at [facility], [address] | | LAB | | | Plasma | [address], | | | | | | [place] [address] | | | | + + + + + + | MPV | 7.4Comment: Testing | fl | EXTERNAL | | | | performed at [facility], [address] | | LAB | | | | [address], | | | | | | [place] [address] | | | | + + + + + + | Differentia | AUTOMATEDComment: | | EXTERNAL | | | l Type | Testing performed at | | LAB | | | | [facility], [address] | | | | | | [place] | | | | | | [address] | | | | + + + + + + | % Segmented | 67.03Comment: Testing | % | EXTERNAL | | | | performed at [facility], [address] | | LAB | | | Neutrophils | [address], | | | | | | [place] [address] | | | | + + + + + + | % | 17.25Comment: Testing | % | EXTERNAL | | | Lymphocytes | performed at [facility], [address] | | LAB | | | | [address], | | | | | | [place] [address] | | | | + + + + + + | % Monocytes | 12.86Comment: Testing | % | EXTERNAL | | | | performed at [facility], [address] | | LAB | | | | [address], | | | | | | [place] [address] | | | | + + + + + + | % | 2.70Comment: Testing | % | EXTERNAL | | | Eosinophils | performed at [facility], [address] | | LAB | | | | [address], | | | | | | [place] [address] | | | | + + + + + + | % Basophils | 0.16Comment: Testing | % | EXTERNAL | | | | performed at [facility], [address] | | LAB | | | | [address], | | | | | | [place] [address] | | | | + + + + + + | Absolute | 6.63Comment: Testing | 1.90 - 7.40 | EXTERNAL | | | Segmented | performed at [facility], [address] | K/uL | LAB | | | Neutrophils | [address], | | | | | | [place] [address] | | | | + + + + + + | Absolute | 1.71Comment: Testing | 1.00 - 3.90 | EXTERNAL | | | Lymphocytes | performed at [facility], [address] | K/uL | LAB | | | | [address], | | | | | | [place] [address] | | | | + + + + + + | Absolute | 1.27 (H)Comment: Testing | 0.00 - 0.80 | EXTERNAL | | | Monocytes | performed at [facility], [address] | [address] | LAB | | | | [address], | | | | | | [place] [address] | | | | + + + + + + | Absolute | 0.27Comment: Testing | 0.00 - 0.50 | EXTERNAL | | | Eosinophils | performed at [facility], [address] | K/uL | LAB | | | | [address], | | | | | | [place] [address] | | | | + + + + + + | Absolute | 0.02Comment: Testing | 0.00 - 0.10 | EXTERNAL | | | Basophils | performed at [facility], [address] | K/uL | LAB | | | | [address], | | | | | | [place] [address] | | | | + + + + + + + + | Specimen | + + | Blood specimen | | (specimen) | + + + +---------+ + + | Performing | Address | City/State/Zipcode | Phone Number | | Organization | | | | + +---------+ + + | EXTERNAL LAB | | | | + +---------+ + + Magnesium (05/20/2016 4:28 AM PST) + + + + + + | Component | Value | Ref Range | Performed | Pathologist | | | | | At | Signature | + + + + + + | Magnesium | 2.2Comment: Testing | 1.7 - 2.4 mg/dL | EXTERNAL | | | | performed at [facility], [address] | | LAB | | | | [address], | | | | | | [place] [address] | | | | + + + + + + + + | Specimen | + + | Blood specimen | | (specimen) | + + + +---------+ + + | Performing | Address | City/State/Zipcode | Phone Number | | Organization | | | | + +---------+ + + | EXTERNAL LAB | | | | + +---------+ + + Renal Function Panel (05/20/2016 4:28 AM PST) + + + + + + | Component | Value | Ref Range | Performed | Pathologist | | | | | At | Signature | + + + + + + | Na | 140Comment: Testing | 135 - 145 | EXTERNAL | | | | performed at [facility], [address] | mmol/L | LAB | | | | [address], | | | | | | [place] [address] | | | | + + + + + + | K | 3.6Comment: Testing | 3.5 - 4.9 | EXTERNAL | | | | performed at [facility], [address] | mmol/L | LAB | | | | [address], | | | | | | [place] [address] | | | | + + + + + + | Cl | 102Comment: Testing | 99 - 109 mmol/L | EXTERNAL | | | | performed at [facility], [address] | | LAB | | | | [address], | | | | | | [place] [address] | | | | + + + + + + | CO2 | 26Comment: Testing | 23 - 32 mmol/L | EXTERNAL | | | | performed at [facility], [address] | | LAB | | | | [address], | | | | | | [place] [address] | | | | + + + + + + | Anion Gap | 16Comment: Testing | 5 - 20 mmol/L | EXTERNAL | | | | performed at [facility], [address] | | LAB | | | | [address], | | | | | | [place] [address] | | | | + + + + + + | Glucose, | 160 (H)Comment: Testing | 65 - 99 mg/dL | EXTERNAL | | | Fasting | performed at [facility], [address] | | LAB | | | | [address], | | | | | | [place] [address] | | | | + + + + + + | BUN | 6 (L)Comment: Testing | 8 - 25 mg/dL | EXTERNAL | | | | performed at [facility], [address] | | LAB | | | | [address], | | | | | | [place] [address] | | | | + + + + + + | Creatinine | 0.8Comment: Testing | 0.70 - 1.30 | EXTERNAL | | | | performed at [facility], [address] | mg/dL | LAB | | | | [address], | | | | | | [place] [address] | | | | + + + + + + | Calcium | 9.1Comment: Testing | 8.5 - 10.5 | EXTERNAL | | | | performed at [facility], [address] | mg/dL | LAB | | | | [address], | | | | | | [place] [address] | | | | + + + + + + | Albumin | 3.3 (L)Comment: Testing | 3.6 - 5.0 g/dL | EXTERNAL | | | | performed at [facility], [address] | | LAB | | | | [address], | | | | | | [place] [address] | | | | + + + + + + | PHOSPHORUS | 4.8Comment: Testing | 2.3 - 4.8 mg/dL | EXTERNAL | | | | performed at [facility], [address] | | LAB | | | | [address], | | | | | | [place] [address] | | | | + + + + + + | Estimated | >60Comment: GFR <60: | mL/min/1.73m2 | EXTERNAL | | | GFR | CHRONIC KIDNEY DISEASE, | | LAB | | | | IF FOUND OVER A 3 MONTH | | | | | | PERIOD.GFR <15: KIDNEY | | | | | | FAILURE.FOR | | | | | | AMERICANS, MULTIPLY THE | | | | | | CALCULATED GFR BY | | | | | | 1.210.Testing performed | | | | | | at [facility], [address] | | | | | | [address], | | | | | | [place] [address] | | | | + + + + + + + + | Specimen | + + | | + + + +---------+ + + | Performing | Address | City/State/Zipcode | Phone Number | | Organization | | | | + +---------+ + + | EXTERNAL LAB | | | | + +---------+ + + West Nile Virus Ab, IgG, IgM (05/19/2016 12:16 PM PST) + + + + + + | Component | Value | Ref Range | Performed | Pathologist | | | | | At | Signature | + + + + + + | West Nile | 0.09Comment: Testing | | EXTERNAL | | | Virus, IgG | performed at [facility], [address] | | LAB | | | | [place] | | | | | | [place] [address] | | | | + + + + + + | West Nile | 0.03Comment: Testing | | EXTERNAL | | | IgM | performed at [facility], [address] | | LAB | | | | [place] | | | | | | [place] [address] | | | | + + + + + + | WEST NILE | SEE BELOWComment: | | EXTERNAL | | | INTERP | INTERPRETATION FOR | | LAB | | | | IGG:<1.30 | | | | | | ANTIBODY NOT | | | | | | DETECTED1.30 TO 1.50 | | | | | | EQUIVOCAL>1.50 | | | | | | ANTIBODY | | | | | | DETECTEDINTERPRETATION | | | | | | FOR IGM:<0.90 | | | | | | ANTIBODY NOT | | | | | | DETECTED0.90 TO 1.10 | | | | | | EQUIVOCAL>1.10 | | | | | | ANTIBODY DETECTEDWEST | | | | | | NILE VIRUS (WNV) IGM IS | | | | | | USUALLY DETECTABLE BY | | | | | | THE TIME SYMPTOMSAPPEAR, | | | | | | BUT IGG MAY NOT BE | | | | | | DETECTABLE UNTIL DAY 4 | | | | | | OR DAY 5 OF | | | | | | ILLNESS.ALTHOUGH WNV | | | | | | PERSISTS FOR MORE THAN A | | | | | | YEAR IN SOME PATIENTS | | | | | | WITH WNVENCEPHALITIS, | | | | | | DETECTION OF WNV IGM | | | | | | REMAINS A RELIABLE | | | | | | INDICATOR OFRECENT | | | | | | INFECTION FOR MOST | | | | | | PATIENTS.ANTIBODIES | | | | | | INDUCED BY WNV INFECTION | | | | | | SHOW EXTENSIVE CROSS | | | | | | REACTIVITYWITH OTHER | | | | | | FLAVIVIRUSES (DENGUE, | | | | | | [facility] KR[facility] ENCEPHALITIS); | | | | | | THUS,ANTIBODY DETECTION | | | | | | USING THIS PANEL IS NOT | | | | | | DIAGNOSTICALLY | | | | | | CONCLUSIVEFOR WNV | | | | | | INFECTION. FINAL | | | | | | DIAGNOSIS SHOULD BE | | | | | | BASED ON | | | | | | CONFIRMATORYASSAYS, SUCH | | | | | | THE PLAQUE REDUCTION | | | | | | NEUTRALIZATION | | | | | | TEST.Testing performed | | | | | | at [facility], [address] | | | | | | [place] | | | | | | [address] | | | | + + + + + + + + | Specimen | + + | | + + + +---------+ + + | Performing | Address | City/State/Zipcode | Phone Number | | Organization | | | | + +---------+ + + | EXTERNAL LAB | | | | + +---------+ + + External Lab: CBC (05/19/2016 4:51 AM PST) + + + + + + | Component | Value | Ref Range | Performed | Pathologist | | | | | At | Signature | + + + + + + | WBC | 8.47Comment: Testing | 3.80 - 11.00 | EXTERNAL | | | | performed at [facility], [address] | K/uL | LAB | | | | [address], | | | | | | [place] [address] | | | | + + + + + + | RED CELL | 4.32Comment: Testing | 4.20 - 5.70 | EXTERNAL | | | COUNT | performed at [facility], [address] | M/uL | LAB | | | | [address], | | | | | | [place] [address] | | | | + + + + + + | Hgb | 12.5 (L)Comment: Testing | 13.2 - 17.0 | EXTERNAL | | | | performed at [facility], [address] | g/dL | LAB | | | | [address], | | | | | | [place] [address] | | | | + + + + + + | Hematocrit, | 36.6 (L)Comment: Testing | 39.0 - 50.0 % | EXTERNAL | | | POC | performed at [facility], [address] | | LAB | | | | [address], | | | | | | [place] [address] | | | | + + + + + + | MCV | 84.6Comment: Testing | 80.0 - 100.0 fl | EXTERNAL | | | | performed at [facility], [address] | | LAB | | | | [address], | | | | | | [place] [address] | | | | + + + + + + | MCH | 28.9Comment: Testing | 27.0 - 34.0 pg | EXTERNAL | | | | performed at [facility], [address] | | LAB | | | [address], | | | | | | [place] [address] | | | | + + + + + + | MCHC | 34.1Comment: Testing | 32.0 - 35.5 | EXTERNAL | | | | performed at [facility], [address] | g/dL | LAB | | | | [address], | | | | | | [place] [address] | | | | + + + + + + | RDW-CV | 47.7Comment: Testing | 37 - 53 fl | EXTERNAL | | | | performed at [facility], [address] | | LAB | | | | [address], | | | | | | [place] [address] | | | | + + + + + + | Platelet | 214Comment: Testing | 150 - 400 K/uL | EXTERNAL | | | Count | performed at [facility], [address] | | LAB | | | Plasma | [address], | | | | | | [place] [address] | | | | + + + + + + | MPV | 7.2Comment: Testing | fl | EXTERNAL | | | | performed at [facility], [address] | | LAB | | | | [address], | | | | | | [place] [address] | | | | + + + + + + | Differentia | AUTOMATEDComment: | | EXTERNAL | | | l Type | Testing performed at | | LAB | | | | [facility], [address] | | | | | | [place] | | | | | | [address] | | | | + + + + + + | % Segmented | 58.72Comment: Testing | % | EXTERNAL | | | | performed at [facility], [address] | | LAB | | | Neutrophils | [address], | | | | | | [place] [address] | | | | + + + + + + | % | 19.99Comment: Testing | % | EXTERNAL | | | Lymphocytes | performed at [facility], [address] | | LAB | | | | [address], | | | | | | [place] [address] | | | | + + + + + + | % Monocytes | 18.21Comment: Testing | % | EXTERNAL | | | | performed at [facility], [address] | | LAB | | | | [address], | | | | | | [place] [address] | | | | + + + + + + | % | 2.84Comment: Testing | % | EXTERNAL | | | Eosinophils | performed at [facility], [address] | | LAB | | | | [address], | | | | | | [place] [address] | | | | + + + + + + | % Basophils | 0.24Comment: Testing | % | EXTERNAL | | | | performed at [facility], [address] | | LAB | | | | [address], | | | | | | [place] [address] | | | | + + + + + + | Absolute | 4.97Comment: Testing | 1.90 - 7.40 | EXTERNAL | | | Segmented | performed at [facility], [address] | [address] | LAB | | | Neutrophils | [address], | | | | | | [place] [address] | | | | + + + + + + | Absolute | 1.69Comment: Testing | 1.00 - 3.90 | EXTERNAL | | | Lymphocytes | performed at [facility], [address] | K/[address] | LAB | | | | [address], | | | | | | [place] [address] | | | | + + + + + + | Absolute | 1.54 (H)Comment: Testing | 0.00 - 0.80 | EXTERNAL | | | Monocytes | performed at [facility], [address] | [address] | LAB | | | | [address], | | | | | | [place] [address] | | | | + + + + + + | Absolute | 0.24Comment: Testing | 0.00 - 0.50 | EXTERNAL | | | Eosinophils | performed at [facility], [address] | [address] | LAB | | | | [address], | | | | | | [place] [address] | | | | + + + + + + | Absolute | 0.02Comment: Testing | 0.00 - 0.10 | EXTERNAL | | | Basophils | performed at [facility], [address] | K/[address] | LAB | | | | [address], | | | | | | [place] [address] | | | | + + + + + + + + | Specimen | + + | Blood specimen | | (specimen) | + + + +---------+ + + | Performing | Address | City/State/Zipcode | Phone Number | | Organization | | | | + +---------+ + + | EXTERNAL LAB | | | | + +---------+ + + Magnesium (05/19/2016 4:51 AM PST) + + + + + + | Component | Value | Ref Range | Performed | Pathologist | | | | | At | Signature | + + + + + + | Magnesium | 2.1Comment: Testing | 1.7 - 2.4 mg/dL | EXTERNAL | | | | performed at [facility], [address] | | LAB | | | | [address], | | | | | | [place] [address] | | | | + + + + + + + + | Specimen | + + | Blood specimen | | (specimen) | + + + +---------+ + + | Performing | Address | City/State/Zipcode | Phone Number | | Organization | | | | + +---------+ + + | EXTERNAL LAB | | | | + +---------+ + + Renal Function Panel (05/19/2016 4:51 AM PST) + + + + + + | Component | Value | Ref Range | Performed | Pathologist | | | | | At | Signature | + + + + + + | Na | 141Comment: Testing | 135 - 145 | EXTERNAL | | | | performed at [facility], [address] | mmol/L | LAB | | | | [address], | | | | | | [place] [address] | | | | + + + + + + | K | 4.0Comment: Testing | 3.5 - 4.9 | EXTERNAL | | | | performed at [facility], [address] | mmol/L | LAB | | | | [address], | | | | | | [place] [address] | | | | + + + + + + | Cl | 105Comment: Testing | 99 - 109 mmol/L | EXTERNAL | | | | performed at [facility], [address] | | LAB | | | [address], | | | | | | [place] [address] | | | | + + + + + + | CO2 | 24Comment: Testing | 23 - 32 mmol/L | EXTERNAL | | | | performed at [facility], [address] | | LAB | | | | [address], | | | | | | [place] [address] | | | | + + + + + + | Anion Gap | 16Comment: Testing | 5 - 20 mmol/L | EXTERNAL | | | | performed at [facility], [address] | | LAB | | | | [address], | | | | | | [place] [address] | | | | + + + + + + | Glucose, | 144 (H)Comment: Testing | 65 - 99 mg/dL | EXTERNAL | | | Fasting | performed at [facility], [address] | | LAB | | | | [address], | | | | | | [place] [address] | | | | + + + + + + | BUN | 5 (L)Comment: Testing | 8 - 25 mg/dL | EXTERNAL | | | | performed at [facility], [address] | | LAB | | | | [address], | | | | | | [place] [address] | | | | + + + + + + | Creatinine | 0.6 (L)Comment: Testing | 0.70 - 1.30 | EXTERNAL | | | | performed at [facility], [address] | mg/dL | LAB | | | | [address], | | | | | | [place] [address] | | | | + + + + + + | Calcium | 8.4 (L)Comment: Testing | 8.5 - 10.5 | EXTERNAL | | | | performed at [facility], [address] | mg/dL | LAB | | | | [address], | | | | | | [place] [address] | | | | + + + + + + | Albumin | 2.9 (L)Comment: Testing | 3.6 - 5.0 g/dL | EXTERNAL | | | | performed at [facility], [address] | | LAB | | | [address], | | | | | | [place] [address] | | | | + + + + + + | PHOSPHORUS | 4.5Comment: Testing | 2.3 - 4.8 mg/dL | EXTERNAL | | | | performed at [facility], [address] | | LAB | | | | [address], | | | | | | [place] [address] | | | | + + + + + + | Estimated | >60Comment: GFR <60: | mL/min/1.73m2 | EXTERNAL | | | GFR | CHRONIC KIDNEY DISEASE, | | LAB | | | | IF FOUND OVER A 3 MONTH | | | | | | PERIOD.GFR <15: KIDNEY | | | | | | FAILURE.FOR | | | | | | AMERICANS, MULTIPLY THE | | | | | | CALCULATED GFR BY | | | | | | 1.210.Testing performed | | | | | | at [facility], [address] | | | | | | [address], | | | | | | [place] [address] | | | | + + + + + + + + | Specimen | + + | | + + + +---------+ + + | Performing | Address | City/State/[facility] | Phone Number | | Organization | | | | + +---------+ + + | EXTERNAL LAB | | | | + +---------+ + + External Lab: CBC (05/18/2016 4:28 AM PST) + + + + + + | Component | Value | Ref Range | Performed | Pathologist | | | | | At | Signature | + + + + + + | WBC | 8.47Comment: Testing | 3.80 - 11.00 | EXTERNAL | | | | performed at [facility], [address] | K/uL | LAB | | | | [address], | | | | | | [place] [address] | | | | + + + + + + | RED CELL | 4.45Comment: Testing | 4.20 - 5.70 | EXTERNAL | | | COUNT | performed at [facility], [address] | M/uL | LAB | | | | [address], | | | | | | [place] [address] | | | | + + + + + + | Hgb | 12.6 (L)Comment: Testing | 13.2 - 17.0 | EXTERNAL | | | | performed at [facility], [address] | g/dL | LAB | | | | [address], | | | | | | [place] [address] | | | | + + + + + + | Hematocrit, | 37.6 (L)Comment: Testing | 39.0 - 50.0 % | EXTERNAL | | | POC | performed at [facility], [address] | | LAB | | | | [address], | | | | | | [place] [address] | | | | + + + + + + | MCV | 84.4Comment: Testing | 80.0 - 100.0 fl | EXTERNAL | | | | performed at [facility], [address] | | LAB | | | | [address], | | | | | | [place] [address] | | | | + + + + + + | MCH | 28.4Comment: Testing | 27.0 - 34.0 pg | EXTERNAL | | | | performed at [facility], [address] | | LAB | | | | [address], | | | | | | [place] [address] | | | | + + + + + + | MCHC | 33.6Comment: Testing | 32.0 - 35.5 | EXTERNAL | | | | performed at [facility], [address] | g/dL | LAB | | | | [address], | | | | | | [place] [address] | | | | + + + + + + | RDW-CV | 49.4Comment: Testing | 37 - 53 fl | EXTERNAL | | | | performed at [facility], [address] | | LAB | | | | [address], | | | | | | [place] [address] | | | | + + + + + + | Platelet | 214Comment: Testing | 150 - 400 K/uL | EXTERNAL | | | Count | performed at [facility], [address] | | LAB | | | Plasma | [address], | | | | | | [place] [address] | | | | + + + + + + | MPV | 7.3Comment: Testing | fl | EXTERNAL | | | | performed at [facility], [address] | | LAB | | | | [address], | | | | | | [place] [address] | | | | + + + + + + | Differentia | AUTOMATEDComment: | | EXTERNAL | | | l Type | Testing performed at | | LAB | | | | [facility], [address] | | | | | | [place] | | | | | | [address] | | | | + + + + + + | % Segmented | 52.21Comment: Testing | % | EXTERNAL | | | | performed at [facility], [address] | | LAB | | | Neutrophils | [address], | | | | | | [place] [address] | | | | + + + + + + | % | 25.94Comment: Testing | % | EXTERNAL | | | Lymphocytes | performed at [facility], [address] | | LAB | | | | [address], | | | | | | [place] [address] | | | | + + + + + + | % Monocytes | 17.82Comment: Testing | % | EXTERNAL | | | | performed at [facility], [address] | | LAB | | | | [address], | | | | | | [place] [address] | | | | + + + + + + | % | 3.54Comment: Testing | % | EXTERNAL | | | Eosinophils | performed at [facility], [address] | | LAB | | | | [address], | | | | | | [place] [address] | | | | + + + + + + | % Basophils | 0.49Comment: Testing | % | EXTERNAL | | | | performed at [facility], [address] | | LAB | | | | [address], | | | | | | [place] [address] | | | | + + + + + + | Absolute | 4.42Comment: Testing | 1.90 - 7.40 | EXTERNAL | | | Segmented | performed at [facility], [address] | K/uL | LAB | | | Neutrophils | [address], | | | | | | [place] [address] | | | | + + + + + + | Absolute | 2.20Comment: Testing | 1.00 - 3.90 | EXTERNAL | | | Lymphocytes | performed at [facility], [address] | K/uL | LAB | | | | [address], | | | | | | [place] [address] | | | | + + + + + + | Absolute | 1.51 (H)Comment: Testing | 0.00 - 0.80 | EXTERNAL | | | Monocytes | performed at [facility], [address] | [address]L | LAB | | | | [address], | | | | | | [place] [address] | | | | + + + + + + | Absolute | 0.30Comment: Testing | 0.00 - 0.50 | EXTERNAL | | | Eosinophils | performed at [facility], [address] | K/uL | LAB | | | | [address], | | | | | | [place] [address] | | | | + + + + + + | Absolute | 0.04Comment: Testing | 0.00 - 0.10 | EXTERNAL | | | Basophils | performed at [facility], [address] | K/uL | LAB | | | | [address], | | | | | | [place] [address] | | | | + + + + + + + + | Specimen | + + | Blood specimen | | (specimen) | + + + +---------+ + + | Performing | Address | City/State/Zipcode | Phone Number | | Organization | | | | + +---------+ + + | EXTERNAL LAB | | | | + +---------+ + + Magnesium (05/18/2016 4:28 AM PST) + + + + + + | Component | Value | Ref Range | Performed | Pathologist | | | | | At | Signature | + + + + + + | Magnesium | 2.2Comment: Testing | 1.7 - 2.4 mg/dL | EXTERNAL | | | | performed at [facility], [address] | | LAB | | | | [address], | | | | | | [place] [address] | | | | + + + + + + + + | Specimen | + + | Blood specimen | | (specimen) | + + + +---------+ + + | Performing | Address | City/State/Zipcode | Phone Number | | Organization | | | | + +---------+ + + | EXTERNAL LAB | | | | + +---------+ + + Renal Function Panel (05/18/2016 4:28 AM PST) + + + + + + | Component | Value | Ref Range | Performed | Pathologist | | | | | At | Signature | + + + + + + | Na | 141Comment: Testing | 135 - 145 | EXTERNAL | | | | performed at [facility], [address] | mmol/L | LAB | | | | [address], | | | | | | [place] [address] | | | | + + + + + + | K | 4.1Comment: Testing | 3.5 - 4.9 | EXTERNAL | | | | performed at [facility], [address] | mmol/L | LAB | | | | [address], | | | | | | [place] [address] | | | | + + + + + + | Cl | 104Comment: Testing | 99 - 109 mmol/L | EXTERNAL | | | | performed at [facility], [address] | | LAB | | | | [address], | | | | | | [place] [address] | | | | + + + + + + | CO2 | 26Comment: Testing | 23 - 32 mmol/L | EXTERNAL | | | | performed at [facility], [address] | | LAB | | | | [address], | | | | | | [place] [address] | | | | + + + + + + | Anion Gap | 15Comment: Testing | 5 - 20 mmol/L | EXTERNAL | | | | performed at [facility], [address] | | LAB | | | | [address], | | | | | | [place] [address] | | | | + + + + + + | Glucose, | 96Comment: Testing | 65 - 99 mg/dL | EXTERNAL | | | Fasting | performed at [facility], [address] | | LAB | | | | [address], | | | | | | [place] [address] | | | | + + + + + + | BUN | 7 (L)Comment: Testing | 8 - 25 mg/dL | EXTERNAL | | | | performed at [facility], [address] | | LAB | | | | [address], | | | | | | [place] [address] | | | | + + + + + + | Creatinine | 0.6 (L)Comment: Testing | 0.70 - 1.30 | EXTERNAL | | | | performed at [facility], [address] | mg/dL | LAB | | | | [address], | | | | | | [place] [address] | | | | + + + + + + | Calcium | 8.9Comment: Testing | 8.5 - 10.5 | EXTERNAL | | | | performed at [facility], [address] | mg/dL | LAB | | | | [address], | | | | | | [place] [address] | | | | + + + + + + | Albumin | 3.0 (L)Comment: Testing | 3.6 - 5.0 g/dL | EXTERNAL | | | | performed at [facility], [address] | | LAB | | | | [address], | | | | | | [place] [address] | | | | + + + + + + | PHOSPHORUS | 5.5 (H)Comment: Testing | 2.3 - 4.8 mg/dL | EXTERNAL | | | | performed at [facility], [address] | | LAB | | | | [address], | | | | | | [place] [address] | | | | + + + + + + | Estimated | >60Comment: GFR <60: | mL/min/1.73m2 | EXTERNAL | | | GFR | CHRONIC KIDNEY DISEASE, | | LAB | | | | IF FOUND OVER A 3 MONTH | | | | | | PERIOD.GFR <15: KIDNEY | | | | | | FAILURE.FOR | | | | | | AMERICANS, MULTIPLY THE | | | | | | CALCULATED GFR BY | | | | | | 1.210.Testing performed | | | | | | at [facility], [address] | | | | | | [address], | | | | | | [place] [address] | | | | + + + + + + + + | Specimen | + + | | + + + +---------+ + + | Performing | Address | City/State/Zipcode | Phone Number | | Organization | | | | + +---------+ + + | EXTERNAL LAB | | | | + +---------+ + + External Lab: CBC (05/17/2016 4:58 AM PST) + + + + + + | Component | Value | Ref Range | Performed | Pathologist | | | | | At | Signature | + + + + + + | WBC | 8.69Comment: Testing | 3.80 - 11.00 | EXTERNAL | | | | performed at [facility], [address] | K/uL | LAB | | | | [address], | | | | | | [place] [address] | | | | + + + + + + | RED CELL | 4.28Comment: Testing | 4.20 - 5.70 | EXTERNAL | | | COUNT | performed at [facility], [address] | M/uL | LAB | | | | [address], | | | | | | [place] [address] | | | | + + + + + + | Hgb | 12.3 (L)Comment: Testing | 13.2 - 17.0 | EXTERNAL | | | | performed at [facility], [address] | g/dL | LAB | | | | [address], | | | | | | [place] [address] | | | | + + + + + + | Hematocrit, | 35.9 (L)Comment: Testing | 39.0 - 50.0 % | EXTERNAL | | | POC | performed at [facility], [address] | LAB | | | | [address], | | | | | | [place] [address] | | | | + + + + + + | MCV | 83.8Comment: Testing | 80.0 - 100.0 fl | EXTERNAL | | | | performed at [facility], [address] | | LAB | | | | [address], | | | | | | [place] [address] | | | | + + + + + + | MCH | 28.7Comment: Testing | 27.0 - 34.0 pg | EXTERNAL | | | | performed at [facility], [address] | | LAB | | | | [address], | | | | | | [place] [address] | | | | + + + + + + | MCHC | 34.3Comment: Testing | 32.0 - 35.5 | EXTERNAL | | | | performed at [facility], [address] | g/dL | LAB | | | | [address], | | | | | | [place] [address] | | | | + + + + + + | RDW-CV | 47.7Comment: Testing | 37 - 53 fl | EXTERNAL | | | | performed at [facility], [address] | | LAB | | | | [address], | | | | | | [place] [address] | | | | + + + + + + | Platelet | 178Comment: Testing | 150 - 400 K/uL | EXTERNAL | | | Count | performed at [facility], [address] | | LAB | | | Plasma | [address], | | | | | | [place] [address] | | | | + + + + + + | MPV | 7.2Comment: Testing | fl | EXTERNAL | | | | performed at [facility], [address] | | LAB | | | | [address], | | | | | | [place] [address] | | | | + + + + + + | Differentia | AUTOMATEDComment: | | EXTERNAL | | | l Type | Testing performed at | | LAB | | | | [facility], [address] | | | | | | [place] | | | | | | [address] | | | | + + + + + + | % Segmented | 48.92Comment: Testing | % | EXTERNAL | | | | performed at [facility], [address] | | LAB | | | Neutrophils | [address], | | | | | | [place] [address] | | | | + + + + + + | % | 29.69Comment: Testing | % | EXTERNAL | | | Lymphocytes | performed at [facility], [address] | | LAB | | | | [address], | | | | | | [place] [address] | | | | + + + + + + | % Monocytes | 17.45Comment: Testing | % | EXTERNAL | | | | performed at [facility], [address] | | LAB | | | | [address], | | | | | | [place] [address] | | | | + + + + + + | % | 3.62Comment: Testing | % | EXTERNAL | | | Eosinophils | performed at [facility], [address] | | LAB | | | | [address], | | | | | | [place] [address] | | | | + + + + + + | % Basophils | 0.32Comment: Testing | % | EXTERNAL | | | | performed at [facility], [address] | | LAB | | | | [address], | | | | | | [place] [address] | | | | + + + + + + | Absolute | 4.25Comment: Testing | 1.90 - 7.40 | EXTERNAL | | | Segmented | performed at [facility], [address] | K/uL | LAB | | | Neutrophils | [address], | | | | | | [place] [address] | | | | + + + + + + | Absolute | 2.58Comment: Testing | 1.00 - 3.90 | EXTERNAL | | | Lymphocytes | performed at [facility], [address] | K/uL | LAB | | | | [address], | | | | | | [place] [address] | | | | + + + + + + | Absolute | 1.52 (H)Comment: Testing | 0.00 - 0.80 | EXTERNAL | | | Monocytes | performed at [facility], [address] | [address] | LAB | | | | [address], | | | | | | [place] [address] | | | | + + + + + + | Absolute | 0.31Comment: Testing | 0.00 - 0.50 | EXTERNAL | | | Eosinophils | performed at [facility], [address] | K/uL | LAB | | | | [address], | | | | | | [place] [address] | | | | + + + + + + | Absolute | 0.03Comment: Testing | 0.00 - 0.10 | EXTERNAL | | | Basophils | performed at [facility], [address] | K/uL | LAB | | | | [address], | | | | | | [place] [address] | | | | + + + + + + + + | Specimen | + + | Blood specimen | | (specimen) | + + + +---------+ + + | Performing | Address | City/State/Zipcode | Phone Number | | Organization | | | | + +---------+ + + | EXTERNAL LAB | | | | + +---------+ + + Magnesium (05/17/2016 4:58 AM PST) + + + + + + | Component | Value | Ref Range | Performed | Pathologist | | | | | At | Signature | + + + + + + | Magnesium | 2.1Comment: Testing | 1.7 - 2.4 mg/dL | EXTERNAL | | | | performed at [facility], [address] | | LAB | | | | [address], | | | | | | [place] [address] | | | | + + + + + + + + | Specimen | + + | Blood specimen | | (specimen) | + + + +---------+ + + | Performing | Address | City/State/Zipcode | Phone Number | | Organization | | | | + +---------+ + + | EXTERNAL LAB | | | | + +---------+ + + Renal Function Panel (05/17/2016 4:58 AM PST) + + + + + + | Component | Value | Ref Range | Performed | Pathologist | | | | | At | Signature | + + + + + + | Na | 141Comment: Testing | 135 - 145 | EXTERNAL | | | | performed at [facility], [address] | mmol/L | LAB | | | | [address], | | | | | | [place] [address] | | | | + + + + + + | K | 3.9Comment: Testing | 3.5 - 4.9 | EXTERNAL | | | | performed at [facility], [address] | mmol/L | LAB | | | | [place], | | | | | | [place] [address] | | | | + + + + + + | Cl | 104Comment: Testing | 99 - 109 mmol/L | EXTERNAL | | | | performed at [facility], [address] | | LAB | | | | [address], | | | | | | [place] [address] | | | | + + + + + + | CO2 | 27Comment: Testing | 23 - 32 mmol/L | EXTERNAL | | | | performed at [facility], [address] | | LAB | | | | [address], | | | | | | [place] [address] | | | | + + + + + + | Anion Gap | 14Comment: Testing | 5 - 20 mmol/L | EXTERNAL | | | | performed at [facility], [address] | | LAB | | | | [address], | | | | | | [place] [address] | | | | + + + + + + | Glucose, | 159 (H)Comment: Testing | 65 - 99 mg/dL | EXTERNAL | | | Fasting | performed at [facility], [address] | | LAB | | | | [address], | | | | | | [place] [address] | | | | + + + + + + | BUN | 4 (L)Comment: Testing | 8 - 25 mg/dL | EXTERNAL | | | | performed at [facility], [address] | | LAB | | | | [address], | | | | | | [place] [address] | | | | + + + + + + | Creatinine | 0.7Comment: Testing | 0.70 - 1.30 | EXTERNAL | | | | performed at [facility], [address] | mg/dL | LAB | | | | [address], | | | | | | [place] [address] | | | | + + + + + + | Calcium | 8.7Comment: Testing | 8.5 - 10.5 | EXTERNAL | | | | performed at [facility], [address] | mg/dL | LAB | | | | [address], | | | | | | [place] [address] | | | | + + + + + + | Albumin | 2.9 (L)Comment: Testing | 3.6 - 5.0 g/dL | EXTERNAL | | | | performed at [facility], [address] | | LAB | | | | [address], | | | | | | [place] [address] | | | | + + + + + + | PHOSPHORUS | 3.3Comment: Testing | 2.3 - 4.8 mg/dL | EXTERNAL | | | | performed at [facility], [address] | | LAB | | | | [address], | | | | | | [place] [address] | | | | + + + + + + | Estimated | >60Comment: GFR <60: | mL/min/1.73m2 | EXTERNAL | | | GFR | CHRONIC KIDNEY DISEASE, | | LAB | | | | IF FOUND OVER A 3 MONTH | | | | | | PERIOD.GFR <15: KIDNEY | | | | | | FAILURE.FOR | | | | | | AMERICANS, MULTIPLY THE | | | | | | CALCULATED GFR BY | | | | | | 1.210.Testing performed | | | | | | at [facility], [address] | | | | | | [address], | | | | | | [place] [address] | | | | + + + + + + + + | Specimen | + + | | + + + +---------+ + + | Performing | Address | City/State/Zipcode | Phone Number | | Organization | | | | + +---------+ + + | EXTERNAL LAB | | | | + +---------+ + + Potassium (05/16/2016 7:41 PM PST) + + + + + + | Component | Value | Ref Range | Performed | Pathologist | | | | | At | Signature | + + + + + + | K | 4.2Comment: SPECIMEN | 3.5 - 4.9 | EXTERNAL | | | | SLIGHTLY | mmol/L | LAB | | | | HEMOLYZEDTesting | | | | | | performed at [facility], [address] | | | | | | [address], | | | | | | [place] [address] | | | | + + + + + + + + | Specimen | + + | Blood specimen | | (specimen) | + + + +---------+ + + | Performing | Address | City/State/Zipcode | Phone Number | | Organization | | | | + +---------+ + + | EXTERNAL LAB | | | | + +---------+ + + XR Chest 1 Vw (05/16/2016 8:30 AM PST) + + | Specimen | + + | | + + + + + | Impressions | Performed At | + + + | 1. Left PICC tip in the mid to upper SVC. Electronically | | | signed by James Johnson MD on 05/16/2016 8:50 AM | | + + + + + + | Narrative | Performed At | + + + | [facility] XR CHEST 1 VIEW 05/16/2016 8:30 AM HISTORY: | | | PICC line placement. TECHNIQUE: One view of the chest | | | FINDINGS: No prior comparison. Heart size is normal. No acute | | | infiltrates or edema. No pneumothorax or pleural effusion. There is a | | | left PICC with the tip in the mid to upper SVC. | | + + + + + | Procedure Note | + + | Alec, Rad Conversion - 01/10/2019 8:49 PM PDT [facility] CHEST 1 VIEW05/16/2016 | | 8:30 AM HISTORY:PICC line placement. TECHNIQUE:One view of the chest FINDINGS:No prior | | comparison. Heart size is normal. No acute infiltrates or edema. No pneumothorax or | | pleural effusion. There is a left PICC with the tip in the mid to upper SVC. IMPRESSION: | | 1. Left PICC tip in the mid to upper SVC. | | | |TECHNIQUE: | |One view of the chest | | | |FINDINGS: | |No prior comparison. Heart size is normal. No acute infiltrates or edema. No pneumothorax o r pleural effusion. There is a left PICC with the tip in the mid to upper SVC. | | | |IMPRESSION: | |1. Left PICC tip in the mid to upper SVC. | | | | | + + External Lab: CBC (05/16/2016 6:01 AM PST) + + + + + + | Component | Value | Ref Range | Performed | Pathologist | | | | | At | Signature | + + + + + + | WBC | 10.21Comment: Testing | 3.80 - 11.00 | EXTERNAL | | | | performed at [facility], [address] | K/uL | LAB | | | | [address], | | | | | | [place] [address] | | | | + + + + + + | RED CELL | 4.63Comment: Testing | 4.20 - 5.70 | EXTERNAL | | | COUNT | performed at [facility], [address] | M/uL | LAB | | | | [address], | | | | | | [place] [address] | | | | + + + + + + | Hgb | 13.1 (L)Comment: Testing | 13.2 - 17.0 | EXTERNAL | | | | performed at [facility], [address] | g/dL | LAB | | | | [address], | | | | | | [place] [address] | | | | + + + + + + | Hematocrit, | 38.5 (L)Comment: Testing | 39.0 - 50.0 % | EXTERNAL | | | POC | performed at [facility], [address] | | LAB | | | | [address], | | | | | | [place] [address] | | | | + + + + + + | MCV | 83.1Comment: Testing | 80.0 - 100.0 fl | EXTERNAL | | | | performed at [facility], [address] | | LAB | | | | [address], | | | | | | [place] [address] | | | | + + + + + + | MCH | 28.2Comment: Testing | 27.0 - 34.0 pg | EXTERNAL | | | | performed at [facility], [address] | | LAB | | | | [address], | | | | | | [place] [address] | | | | + + + + + + | MCHC | 33.9Comment: Testing | 32.0 - 35.5 | EXTERNAL | | | | performed at [facility], [address] | g/dL | LAB | | | | [address], | | | | | | [place] [address] | | | | + + + + + + | RDW-CV | 47.7Comment: Testing | 37 - 53 fl | EXTERNAL | | | | performed at [facility], [address] | | LAB | | | [address], | | | | | | [place] [address] | | | | + + + + + + | Platelet | 188Comment: Testing | 150 - 400 K/uL | EXTERNAL | | | Count | performed at [facility], [address] | | LAB | | | Plasma | [address], | | | | | | [place] [address] | | | | + + + + + + | MPV | 7.3Comment: Testing | fl | EXTERNAL | | | | performed at [facility], [address] | | LAB | | | | [address], | | | | | | [place] [address] | | | | + + + + + + | Differentia | AUTOMATEDComment: | | EXTERNAL | | | l Type | Testing performed at | | LAB | | | | [facility], [address] | | | | | | [place] | | | | | | [address] | | | | + + + + + + | % Segmented | 53.22Comment: Testing | % | EXTERNAL | | | | performed at [facility], [address] | | LAB | | | Neutrophils | [address], | | | | | | [place] [address] | | | | + + + + + + | % | 29.15Comment: Testing | % | EXTERNAL | | | Lymphocytes | performed at [facility], [address] | | LAB | | | | [address], | | | | | | [place] [address] | | | | + + + + + + | % Monocytes | 13.48Comment: Testing | % | EXTERNAL | | | | performed at [facility], [address] | | LAB | | | | [address], | | | | | | [place] [address] | | | | + + + + + + | % | 3.98Comment: Testing | % | EXTERNAL | | | Eosinophils | performed at [facility], [address] | | LAB | | | | [address], | | | | | | [place] [address] | | | | + + + + + + | % Basophils | 0.17Comment: Testing | % | EXTERNAL | | | | performed at [facility], [address] | | LAB | | | | [address], | | | | | | [place] [address] | | | | + + + + + + | Absolute | 5.43Comment: Testing | 1.90 - 7.40 | EXTERNAL | | | Segmented | performed at [facility], [address] | K/uL | LAB | | | Neutrophils | [address], | | | | | | [place] [address] | | | | + + + + + + | Absolute | 2.98Comment: Testing | 1.00 - 3.90 | EXTERNAL | | | Lymphocytes | performed at [facility], [address] | K/uL | LAB | | | | [address], | | | | | | [place] [address] | | | | + + + + + + | Absolute | 1.38 (H)Comment: Testing | 0.00 - 0.80 | EXTERNAL | | | Monocytes | performed at [facility], [address] | [address] | LAB | | | | [address], | | | | | | [place] [address] | | | | + + + + + + | Absolute | 0.41Comment: Testing | 0.00 - 0.50 | EXTERNAL | | | Eosinophils | performed at [facility], [address] | K/u[address] | LAB | | | | [address], | | | | | | [place] [address] | | | | + + + + + + | Absolute | 0.02Comment: Testing | 0.00 - 0.10 | EXTERNAL | | | Basophils | performed at [facility], [address] | K/[address] | LAB | | | | [address], | | | | | | [place] [address] | | | | + + + + + + + + | Specimen | + + | Blood specimen | | (specimen) | + + + +---------+ + + | Performing | Address | City/State/Zipcode | Phone Number | | Organization | | | | + +---------+ + + | EXTERNAL LAB | | | | + +---------+ + + Phosphorus (05/16/2016 6:01 AM PST) + + + + + + | Component | Value | Ref Range | Performed | Pathologist | | | | | At | Signature | + + + + + + | PHOSPHORUS | 3.5Comment: Testing | 2.3 - 4.8 mg/dL | EXTERNAL | | | | performed at [facility], [address] | | LAB | | | | [address], | | | | | | [place] [address] | | | | + + + + + + + + | Specimen | + + | Blood specimen | | (specimen) | + + + +---------+ + + | Performing | Address | City/State/Zipcode | Phone Number | | Organization | | | | + +---------+ + + | EXTERNAL LAB | | | | + +---------+ + + Magnesium (05/16/2016 6:01 AM PST) + + + + + + | Component | Value | Ref Range | Performed | Pathologist | | | | | At | Signature | + + + + + + | Magnesium | 2.1Comment: Testing | 1.7 - 2.4 mg/dL | EXTERNAL | | | | performed at [facility], [address] | | LAB | | | | [address], | | | | | | [place] [address] | | | | + + + + + + + + | Specimen | + + | Blood specimen | | (specimen) | + + + +---------+ + + | Performing | Address | City/State/Zipcode | Phone Number | | Organization | | | | + +---------+ + + | EXTERNAL LAB | | | | + +---------+ + + Comprehensive Metabolic Panel (05/16/2016 6:01 AM PST) + + + + + + | Component | Value | Ref Range | Performed | Pathologist | | | | | At | Signature | + + + + + + | Na | 141Comment: Testing | 135 - 145 | EXTERNAL | | | | performed at [facility], [address] | mmol/L | LAB | | | | [address], | | | | | | [place] [address] | | | | + + + + + + | K | 3.4 (L)Comment: Testing | 3.5 - 4.9 | EXTERNAL | | | | performed at [facility], [address] | mmol/L | LAB | | | | [address], | | | | | | [place] [address] | | | | + + + + + + | Cl | 103Comment: Testing | 99 - 109 mmol/L | EXTERNAL | | | | performed at [facility], [address] | | LAB | | | | [address], | | | | | | [place] [address] | | | | + + + + + + | CO2 | 26Comment: Testing | 23 - 32 mmol/L | EXTERNAL | | | | performed at [facility], [address] | | LAB | | | | [address], | | | | | | [place] [address] | | | | + + + + + + | Anion Gap | 15Comment: Testing | 5 - 20 mmol/L | EXTERNAL | | | | performed at [facility], [address] | | LAB | | | | [address], | | | | | | [place] [address] | | | | + + + + + + | Glucose, | 203 (H)Comment: Testing | 65 - 99 mg/dL | EXTERNAL | | | Fasting | performed at [facility], [address] | | LAB | | | | [address], | | | | | | [place] [address] | | | | + + + + + + | BUN | 5 (L)Comment: Testing | 8 - 25 mg/dL | EXTERNAL | | | | performed at [facility], [address] | | LAB | | | | [address], | | | | | | [place] [address] | | | | + + + + + + | Creatinine | 0.9Comment: Testing | 0.70 - 1.30 | EXTERNAL | | | | performed at [facility], [address] | mg/dL | LAB | | | | [address], | | | | | | [place] [address] | | | | + + + + + + | BUN/Creatin | 6Comment: Testing | | EXTERNAL | | | ine Ratio | performed at [facility], [address] | | LAB | | | | [address], | | | | | | [place] [address] | | | | + + + + + + | Calcium | 8.7Comment: Testing | 8.5 - 10.5 | EXTERNAL | | | | performed at [facility], [address] | mg/dL | LAB | | | | [address], | | | | | | [place] [address] | | | | + + + + + + | Protein, | 6.5Comment: Testing | 6.3 - 8.2 g/dL | EXTERNAL | | | Total | performed at [facility], [address] | | LAB | | | | [address], | | | | | | [place] [address] | | | | + + + + + + | Albumin | 3.2 (L)Comment: Testing | 3.6 - 5.0 g/dL | EXTERNAL | | | | performed at [facility], [address] | | LAB | | | | [address], | | | | | | [place] [address] | | | | + + + + + + | Globulin | 3.3Comment: Testing | 1.3 - 4.9 g/dL | EXTERNAL | | | | performed at [facility], [address] | | LAB | | | | [address], | | | | | | [place] [address] | | | | + + + + + + | A/G Ratio | 1.0Comment: Testing | 1.0 - 2.4 | EXTERNAL | | | | performed at [facility], [address] | | LAB | | | | [address], | | | | | | [place] [address] | | | | + + + + + + | Bilirubin | 0.2Comment: Testing | 0.1 - 1.5 mg/dL | EXTERNAL | | | Total | performed at [facility], [address] | | LAB | | | | [address], | | | | | | [place] [address] | | | | + + + + + + | ALP, | 60Comment: Testing | 35 - 115 U/L | EXTERNAL | | | External | performed at [facility], [address] | | LAB | | | | [address], | | | | | | [place] [address] | | | | + + + + + + | AST | 80 (H)Comment: Testing | 10 - 45 U/L | EXTERNAL | | | | performed at [facility], [address] | | LAB | | | | [address], | | | | | | [place] [address] | | | | + + + + + + | ALT | 101 (H)Comment: Testing | 10 - 65 U/L | EXTERNAL | | | | performed at [facility], [address] | | LAB | | | | [address], | | | | | | [place] [address] | | | | + + + + + + | Estimated | >60Comment: GFR <60: | mL/min/1.73m2 | EXTERNAL | | | GFR | CHRONIC KIDNEY DISEASE, | | LAB | | | | IF FOUND OVER A 3 MONTH | | | | | | PERIOD.GFR <15: KIDNEY | | | | | | FAILURE.FOR | | | | | | AMERICANS, MULTIPLY THE | | | | | | CALCULATED GFR BY | | | | | | 1.210.Testing performed | | | | | | at [facility], [address] | | | | | | [address], | | | | | | [place] [address] | | | | + + + + + + + + | Specimen | + + | Blood specimen | | (specimen) | + + + +---------+ + + | Performing | Address | City/State/Zipcode | Phone Number | | Organization | | | | + +---------+ + + | EXTERNAL LAB | | | | + +---------+ + + Phenytoin Level, Total (05/14/2016 5:34 AM PST) + + + + + + | Component | Value | Ref Range | Performed | Pathologist | | | | | At | Signature | + + + + + + | Date of | UNKNOWNComment: Testing | | EXTERNAL | | | Last Dose | performed at [facility];[address] | | LAB | | | | [address];[place] | | | | | | [address] | | | | + + + + + + | Time of | UNKNOWNComment: Testing | | EXTERNAL | | | Last Dose | performed at [facility];[address] | | LAB | | | | [address];[place] | | | | | | [address] | | | | + + + + + + | Dilantin | 8.0 (L)Comment: Testing | 10 - 20 ug/mL | EXTERNAL | | | | performed at [facility];[address] | | LAB | | | | [address];[place], [place] | | | | | | [address] | | | | + + + + + + + + | Specimen | + + | Blood specimen | | (specimen) | + + + +---------+ + + | Performing | Address | City/State/Zipcode | Phone Number | | Organization | | | | + +---------+ + + | EXTERNAL LAB | | | | + +---------+ + + Comprehensive Metabolic Panel (05/14/2016 5:34 AM PST) + + + + + + | Component | Value | Ref Range | Performed | Pathologist | | | | | At | Signature | + + + + + + | Na | 142Comment: Testing | 135 - 145 | EXTERNAL | | | | performed at [facility], [address] | mmol/L | LAB | | | | [address], | | | | | | [place] [address] | | | | + + + + + + | K | 4.1Comment: Testing | 3.5 - 4.9 | EXTERNAL | | | | performed at [facility], [address] | mmol/L | LAB | | | | [address], | | | | | | [place] [address] | | | | + + + + + + | Cl | 105Comment: Testing | 99 - 109 mmol/L | EXTERNAL | | | | performed at [facility], [address] | | LAB | | | | [address], | | | | | | [place] [address] | | | | + + + + + + | CO2 | 28Comment: Testing | 23 - 32 mmol/L | EXTERNAL | | | | performed at [facility], [address] | | LAB | | | | [address], | | | | | | [place] [address] | | | | + + + + + + | Anion Gap | 13Comment: Testing | 5 - 20 mmol/L | EXTERNAL | | | | performed at [facility], [address] | | LAB | | | | [address], | | | | | | [place] [address] | | | | + + + + + + | Glucose, | 90Comment: Testing | 65 - 99 mg/dL | EXTERNAL | | | Fasting | performed at [facility], [address] | | LAB | | | | [address], | | | | | | [place] [address] | | | | + + + + + + | BUN | 4 (L)Comment: Testing | 8 - 25 mg/dL | EXTERNAL | | | | performed at [facility], [address] | | LAB | | | | [address], | | | | | | [place] [address] | | | | + + + + + + | Creatinine | 0.6 (L)Comment: Testing | 0.70 - 1.30 | EXTERNAL | | | | performed at [facility], [address] | mg/dL | LAB | | | | [address], | | | | | | [place] [address] | | | | + + + + + + | BUN/Creatin | 7Comment: Testing | | EXTERNAL | | | ine Ratio | performed at [facility], [address] | | LAB | | | | [address], | | | | | | [place] [address] | | | | + + + + + + | Calcium | 9.4Comment: Testing | 8.5 - 10.5 | EXTERNAL | | | | performed at [facility], [address] | mg/dL | LAB | | | | [address], | | | | | | [place] [address] | | | | + + + + + + | Protein, | 6.5Comment: Testing | 6.3 - 8.2 g/dL | EXTERNAL | | | Total | performed at [facility], [address] | | LAB | | | | [address], | | | | | | [place] [address] | | | | + + + + + + | Albumin | 3.2 (L)Comment: Testing | 3.6 - 5.0 g/dL | EXTERNAL | | | | performed at [facility], [address] | | LAB | | | [address], | | | | | | [place] [address] | | | | + + + + + + | Globulin | 3.3Comment: Testing | 1.3 - 4.9 g/dL | EXTERNAL | | | | performed at [facility], [address] | | LAB | | | | [address], | | | | | | [place] [address] | | | | + + + + + + | A/G Ratio | 1.0Comment: Testing | 1.0 - 2.4 | EXTERNAL | | | | performed at [facility], [address] | | LAB | | | | [address], | | | | | | [place] [address] | | | | + + + + + + | Bilirubin | 0.2Comment: Testing | 0.1 - 1.5 mg/dL | EXTERNAL | | | Total | performed at [facility], [address] | | LAB | | | | [address], | | | | | | [place] [address] | | | | + + + + + + | ALP, | 64Comment: Testing | 35 - 115 U/L | EXTERNAL | | | External | performed at [facility], [address] | | LAB | | | | [address], | | | | | | [place] [address] | | | | + + + + + + | AST | 81 (H)Comment: Testing | 10 - 45 U/L | EXTERNAL | | | | performed at [facility], [address] | | LAB | | | | [address], | | | | | | [place] [address] | | | | + + + + + + | ALT | 96 (H)Comment: Testing | 10 - 65 U/L | EXTERNAL | | | | performed at [facility], [address] | | LAB | | | | [address], | | | | | | [place] [address] | | | | + + + + + + | Estimated | >60Comment: GFR <60: | mL/min/1.73m2 | EXTERNAL | | | GFR | CHRONIC KIDNEY DISEASE, | | LAB | | | | IF FOUND OVER A 3 MONTH | | | | | | PERIOD.GFR <15: KIDNEY | | | | | | FAILURE.FOR | | | | | | AMERICANS, MULTIPLY THE | | | | | | CALCULATED GFR BY | | | | | | 1.210.Testing performed | | | | | | at [facility], [address] | | | | | | [address], | | | | | | [place] [address] | | | | + + + + + + + + | Specimen | + + | Blood specimen | | (specimen) | + + + +---------+ + + | Performing | Address | City/State/Zipcode | Phone Number | | Organization | | | | + +---------+ + + | EXTERNAL LAB | | | | + +---------+ + + CBC with Manual Differential (05/13/2016 5:09 AM PST) + + + + + + | Component | Value | Ref Range | Performed | Pathologist | | | | | At | Signature | + + + + + + | WBC | 11.10 (H)Comment: | 3.80 - 11.00 | EXTERNAL | | | | Testing performed at | K/uL | LAB | | | | [facility], [address] | | | | | | [place] | | | | | | [address] | | | | + + + + + + | RED CELL | 5.05Comment: Testing | 4.20 - 5.70 | EXTERNAL | | | COUNT | performed at [facility], [address] | M/uL | LAB | | | | [address], | | | | | | [place] [address] | | | | + + + + + + | Hgb | 14.3Comment: Testing | 13.2 - 17.0 | EXTERNAL | | | | performed at [facility], [address] | g/dL | LAB | | | | [address], | | | | | | [place] [address] | | | | + + + + + + | Hematocrit, | 41.8Comment: Testing | 39.0 - 50.0 % | EXTERNAL | | | POC | performed at [facility], [address] | | LAB | | | | [address], | | | | | | [place] [address] | | | | + + + + + + | MCV | 82.6Comment: Testing | 80.0 - 100.0 fl | EXTERNAL | | | | performed at [facility], [address] | | LAB | | | | [address], | | | | | | [place] [address] | | | | + + + + + + | MCH | 28.3Comment: Testing | 27.0 - 34.0 pg | EXTERNAL | | | | performed at [facility], [address] | | LAB | | | | [address], | | | | | | [place] [address] | | | | + + + + + + | MCHC | 34.3Comment: Testing | 32.0 - 35.5 | EXTERNAL | | | | performed at [facility], [address] | g/dL | LAB | | | | [address], | | | | | | [place] [address] | | | | + + + + + + | RDW-CV | 46.4Comment: Testing | 37 - 53 fl | EXTERNAL | | | | performed at [facility], [address] | | LAB | | | | [address], | | | | | | [place] [address] | | | | + + + + + + | Platelet | 161Comment: Testing | 150 - 400 K/uL | EXTERNAL | | | Count | performed at [facility], [address] | | LAB | | | Plasma | [address], | | | | | | [place] [address] | | | | + + + + + + | MPV | 7.1Comment: Testing | fl | EXTERNAL | | | | performed at [facility], [address] | | LAB | | | | [address], | | | | | | [place] [address] | | | | + + + + + + | Differentia | MANUALComment: Testing | | EXTERNAL | | | l Type | performed at [facility], [address] | | LAB | | | | [address], | | | | | | [place] [address] | | | | + + + + + + | Segmented | 49Comment: Testing | % | EXTERNAL | | | Neutrophils | performed at [facility], [address] | | LAB | | | Manual | [address], | | | | | | [place] [address] | | | | + + + + + + | % Bands | 1Comment: Testing | % | EXTERNAL | | | | performed at [facility], [address] | | LAB | | | | [address], | | | | | | [place] [address] | | | | + + + + + + | Lymphocytes | 28Comment: Testing | % | EXTERNAL | | | Manual | performed at [facility], [address] | | LAB | | | | [address], | | | | | | [place] [address] | | | | + + + + + + | Reactive | 2Comment: Testing | % | EXTERNAL | | | Lymphocytes | performed at [facility], [address] | | LAB | | | | [address], | | | | | | [place] [address] | | | | + + + + + + | Monocytes | 15Comment: Testing | % | EXTERNAL | | | Manual | performed at [facility], [address] | | LAB | | | | [address], | | | | | | [place] [address] | | | | + + + + + + | Eosinophils | 4Comment: Testing | % | EXTERNAL | | | Manual | performed at [facility], [address] | | LAB | | | | [address], | | | | | | [place] [address] | | | | + + + + + + | Basophils | 1Comment: Testing | % | EXTERNAL | | | Manual | performed at [facility], [address] | | LAB | | | | [address], | | | | | | [place] [address] | | | | + + + + + + | Absolute | 5.44Comment: Testing | 1.90 - 7.40 | EXTERNAL | | | Neutrophils | performed at [facility], [address] | K/uL | LAB | | | | [address], | | | | | | [place] [address] | | | | + + + + + + | Bands | 0.11Comment: Testing | 0.00 - 0.20 | EXTERNAL | | | Manual | performed at [facility], [address] | K/uL | LAB | | | | [address], | | | | | | [place] [address] | | | | + + + + + + | Absolute | 3.11Comment: Testing | 1.00 - 3.90 | EXTERNAL | | | Lymphocytes | performed at [facility], [address] | K/uL | LAB | | | | [address], | | | | | | [place] [address] | | | | + + + + + + | Reactive | 0.22Comment: Testing | K/uL | EXTERNAL | | | Lymphocytes | performed at [facility], [address] | | LAB | | | | [address], | | | | | | [place] [address] | | | | + + + + + + | Absolute | 1.67 (H)Comment: Testing | 0.00 - 0.80 | EXTERNAL | | | Monocytes | performed at [facility], [address] | [address] | LAB | | | | [address], | | | | | | [place] [address] | | | | + + + + + + | Absolute | 0.44Comment: Testing | 0.00 - 0.50 | EXTERNAL | | | Eosinophils | performed at [facility], [address] | K/[address]L | LAB | | | | [address], | | | | | | [place] [address] | | | | + + + + + + | Absolute | 0.11 (H)Comment: Testing | 0.00 - 0.10 | EXTERNAL | | | Basophils | performed at [facility], [address] | [address] | LAB | | | | [address], | | | | | | [place] [address] | | | | + + + + + + | RBC | RBC AND PLT MORPHOLOGY | | EXTERNAL | | | Morphology | APPEAR NORMALComment: | | LAB | | | | Testing performed at | | | | | | [facility], [address] | | | | | | [place] | | | | | | [address] | | | | + + + + + + + + | Specimen | + + | Blood specimen | | (specimen) | + + + +---------+ + + | Performing | Address | City/State/Zipcode | Phone Number | | Organization | | | | + +---------+ + + | EXTERNAL LAB | | | | + +---------+ + + Basic Metabolic Panel (05/13/2016 5:09 AM PST) + + + + + + | Component | Value | Ref Range | Performed | Pathologist | | | | | At | Signature | + + + + + + | Na | 142Comment: Testing | 135 - 145 | EXTERNAL | | | | performed at [facility], [address] | mmol/L | LAB | | | | [address], | | | | | | [place] [address] | | | | + + + + + + | K | 4.3Comment: Testing | 3.5 - 4.9 | EXTERNAL | | | | performed at [facility], [address] | mmol/L | LAB | | | | [address], | | | | | | [place] [address] | | | | + + + + + + | Cl | 104Comment: Testing | 99 - 109 mmol/L | EXTERNAL | | | | performed at [facility], [address] | | LAB | | | | [address], | | | | | | [place] [address] | | | | + + + + + + | CO2 | 26Comment: Testing | 23 - 32 mmol/L | EXTERNAL | | | | performed at [facility], [address] | | LAB | | | | [address], | | | | | | [place] [address] | | | | + + + + + + | Anion Gap | 16Comment: Testing | 5 - 20 mmol/L | EXTERNAL | | | | performed at [facility], [address] | | LAB | | | [address], | | | | | | [place] [address] | | | | + + + + + + | Glucose, | 107 (H)Comment: Testing | 65 - 99 mg/dL | EXTERNAL | | | Fasting | performed at [facility], [address] | | LAB | | | | [address], | | | | | | [place] [address] | | | | + + + + + + | BUN | 4 (L)Comment: Testing | 8 - 25 mg/dL | EXTERNAL | | | | performed at [facility], [address] | | LAB | | | [address], | | | | | | [place] [address] | | | | + + + + + + | Creatinine | 0.7Comment: Testing | 0.70 - 1.30 | EXTERNAL | | | | performed at [facility], [address] | mg/dL | LAB | | | | [address], | | | | | | [place] [address] | | | | + + + + + + | BUN/Creatin | 6Comment: Testing | | EXTERNAL | | | ine Ratio | performed at [facility], [address] | | LAB | | | | [address], | | | | | | [place] [address] | | | | + + + + + + | Calcium | 9.2Comment: Testing | 8.5 - 10.5 | EXTERNAL | | | | performed at [facility], [address] | mg/dL | LAB | | | | [address] [facility], | | | | | | [place] [address] | | | | + + + + + + | Estimated | >60Comment: GFR <60: | mL/min/1.73m2 | EXTERNAL | | | GFR | CHRONIC KIDNEY DISEASE, | | LAB | | | | IF FOUND OVER A 3 MONTH | | | | | | PERIOD.GFR <15: KIDNEY | | | | | | FAILURE.FOR | | | | | | AMERICANS, MULTIPLY THE | | | | | | CALCULATED GFR BY | | | | | | 1.210.Testing performed | | | | | | at [facility], [address] | | | | | | [facility], | | | | | | [place] [address] | | | | + + + + + + + + | Specimen | + + | Blood specimen | | (specimen) | + + + +---------+ + + | Performing | Address | City/State/Zipcode | Phone Number | | Organization | | | | + +---------+ + + | EXTERNAL LAB | | | | + +---------+ + + ECG 12 lead (05/11/2016 1:35 PM PST) + + + + + + | Component | Value | Ref Range | Performed | Pathologist | | | | | At | Signature | + + + + + + | DIAGNOSIS: | Sinus | | EXTERNAL | | | | tachycardiaOtherwise | | LAB | | | | normal ECGNo previous | | | | | | ECGs availableConfirmed | | | | | | by GLEN MCDOWELL ([id number]) on | | | | | | 05/11/2016 8:39:41 PM | | | | + + + + + + + + | Specimen | + + | | + + + + + | Narrative | Performed At | + + + | Historically converted procedure from [facility] Epic environment | EXTERNAL LAB | + + + + +---------+ + + | Performing | Address | City/State/Zipcode | Phone Number | | Organization | | | | + +---------+ + + | EXTERNAL LAB | | | | + +---------+ + + CBC with Manual Differential (05/09/2016 4:14 AM PST) + + + + + + | Component | Value | Ref Range | Performed | Pathologist | | | | | At | Signature | + + + + + + | WBC | 7.35Comment: Testing | 3.80 - 11.00 | EXTERNAL | | | | performed at [facility];[address] | K/uL | LAB | | | | [address];[place] | | | | | | [address] | | | | + + + + + + | RED CELL | 4.84Comment: Testing | 4.20 - 5.70 | EXTERNAL | | | COUNT | performed at [facility];[address] | M/uL | LAB | | | | [address];[place] | | | | | | [address] | | | | + + + + + + | Hgb | 13.3Comment: Testing | 13.2 - 17.0 | EXTERNAL | | | | performed at [facility];[address] | g/dL | LAB | | | | [address];[place] | | | | | | [address] | | | | + + + + + + | Hematocrit, | 39.8Comment: Testing | 39.0 - 50.0 % | EXTERNAL | | | POC | performed at [facility];[address] | | LAB | | | | [address];[place] | | | | | | [address] | | | | + + + + + + | MCV | 82.3Comment: Testing | 80.0 - 100.0 fl | EXTERNAL | | | | performed at [facility];[address] | | LAB | | | | [address];[place] | | | | | | [address] | | | | + + + + + + | MCH | 27.5Comment: Testing | 27.0 - 34.0 pg | EXTERNAL | | | | performed at [facility];[address] | | LAB | | | | [address];[place] | | | | | | [address] | | | | + + + + + + | MCHC | 33.4Comment: Testing | 32.0 - 35.5 | EXTERNAL | | | | performed at [facility];[address] | g/dL | LAB | | | | [address];[place] | | | | | | [address] | | | | + + + + + + | RDW-CV | 47.3Comment: Testing | 37 - 53 fl | EXTERNAL | | | | performed at [facility];[address] | | LAB | | | | [address];[place] | | | | | | [address] | | | | + + + + + + | Platelet | 136 (L)Comment: Testing | 150 - 400 K/uL | EXTERNAL | | | Count | performed at [facility];[address] | | LAB | | | Plasma | [address];[place] | | | | | | [address] | | | | + + + + + + | MPV | 7.2Comment: Testing | fl | EXTERNAL | | | | performed at [facility];[address] | | LAB | | | | [address];[place] | | | | | | [address] | | | | + + + + + + | Differentia | MANUALComment: Testing | | EXTERNAL | | | l Type | performed at [facility];[address] | | LAB | | | | [address];[place] | | | | | | [address] | | | | + + + + + + | Segmented | 55Comment: Testing | % | EXTERNAL | | | Neutrophils | performed at [facility];[address] | | LAB | | | Manual | [address];[place] | | | | | | [address] | | | | + + + + + + | Lymphocytes | 34Comment: Testing | % | EXTERNAL | | | Manual | performed at [facility];[address] | | LAB | | | | [address];[place] | | | | | | [address] | | | | + + + + + + | Monocytes | 9Comment: Testing | % | EXTERNAL | | | Manual | performed at [facility];[address] | | LAB | | | | [address];[place] | | | | | | [address] | | | | + + + + + + | Eosinophils | 2Comment: Testing | % | EXTERNAL | | | Manual | performed at [facility];[address] | | LAB | | | | [address];[place] | | | | | | [address] | | | | + + + + + + | Absolute | 4.04Comment: Testing | 1.90 - 7.40 | EXTERNAL | | | Neutrophils | performed at [facility] [place];[address] | K/uL | LAB | | | | [address];[place] | | | | | | [address] | | | | + + + + + + | Absolute | 2.50Comment: Testing | 1.00 - 3.90 | EXTERNAL | | | Lymphocytes | performed at [facility] [place];[address] | K/uL | LAB | | | | [address];[place] | | | | | | [address] | | | | + + + + + + | Absolute | 0.66Comment: Testing | 0.00 - 0.80 | EXTERNAL | | | Monocytes | performed at [facility] [place] [facility];[address] | K/uL | LAB | | | | [address];[place] | | | | | | [address] | | | | + + + + + + | Absolute | 0.15Comment: Testing | 0.00 - 0.50 | EXTERNAL | | | Eosinophils | performed at [facility] [place];[address] | K/uL | LAB | | | | [address];[place] | | | | | | [address] | | | | + + + + + + | RBC | RBC AND PLT MORPHOLOGY | | EXTERNAL | | | Morphology | APPEAR NORMALComment: | | LAB | | | | Testing performed at | | | | | | [facility] [place];[address];[place] [address] | | | | + + + + + + + + | Specimen | + + | Blood specimen | | (specimen) | + + + +---------+ + + | Performing | Address | City/State/Zipcode | Phone Number | | Organization | | | | + +---------+ + + | EXTERNAL LAB | | | | + +---------+ + + Phenytoin Level, Total (05/09/2016 4:14 AM PST) + + + + + + | Component | Value | Ref Range | Performed | Pathologist | | | | | At | Signature | + + + + + + | Date of | UNKNOWNComment: Testing | | EXTERNAL | | | Last Dose | performed at [facility];[address] | | LAB | | | | [address];[place] | | | | | | [address] | | | | + + + + + + | Time of | UNKNOWNComment: Testing | | EXTERNAL | | | Last Dose | performed at [facility] [place];[address] | | LAB | | | | [address];[place] | | | | | | [address] | | | | + + + + + + | Dilantin | 10.6Comment: Testing | 10 - 20 ug/mL | EXTERNAL | | | | performed at [facility];[address] | | LAB | | | | [address];[place], [place] | | | | | | [address] | | | | + + + + + + + + | Specimen | + + | Blood specimen | | (specimen) | + + + +---------+ + + | Performing | Address | City/State/Zipcode | Phone Number | | Organization | | | | + +---------+ + + | EXTERNAL LAB | | | | + +---------+ + + Basic Metabolic Panel (05/09/2016 4:14 AM PST) + + + + + + | Component | Value | Ref Range | Performed | Pathologist | | | | | At | Signature | + + + + + + | Na | 141Comment: Testing | 135 - 145 | EXTERNAL | | | | performed at [facility];888 | mmol/L | LAB | | | | [address];[place] | | | | | | [address] | | | | + + + + + + | K | 4.1Comment: Testing | 3.5 - 4.9 | EXTERNAL | | | | performed at [facility];888 | mmol/L | LAB | | | | [address];[place] | | | | | | [address] | | | | + + + + + + | Cl | 106Comment: Testing | 99 - 109 mmol/L | EXTERNAL | | | | performed at [facility];[address] | | LAB | | | | [address];[place] | | | | | | [address] | | | | + + + + + + | CO2 | 24Comment: Testing | 23 - 32 mmol/L | EXTERNAL | | | | performed at [facility];[address] | | LAB | | | | [address];[place] | | | | | | [address] | | | | + + + + + + | Anion Gap | 16Comment: Testing | 5 - 20 mmol/L | EXTERNAL | | | | performed at [facility];[address] | | LAB | | | | [address];[place] | | | | | | [address] | | | | + + + + + + | Glucose, | 86Comment: Testing | 65 - 99 mg/dL | EXTERNAL | | | Fasting | performed at [facility];[address] | | LAB | | | | [address];[place] | | | | | | [address] | | | | + + + + + + | BUN | 10Comment: Testing | 8 - 25 mg/dL | EXTERNAL | | | | performed at [facility];[address] | | LAB | | | | [address];[place] | | | | | | [address] | | | | + + + + + + | Creatinine | 0.71Comment: Testing | 0.70 - 1.30 | EXTERNAL | | | | performed at [facility];888 | mg/dL | LAB | | | | [address];[place] | | | | | | [address] | | | | + + + + + + | BUN/Creatin | 14Comment: Testing | | EXTERNAL | | | ine Ratio | performed at [facility];[address] | | LAB | | | | [address];[place] | | | | | | [address] | | | | + + + + + + | Calcium | 8.5Comment: Testing | 8.5 - 10.5 | EXTERNAL | | | | performed at [facility];888 | mg/dL | LAB | | | | [address];[place], [place] | | | | | | [address] | | | | + + + + + + | Estimated | >60Comment: GFR <60: | mL/min/1.73m2 | EXTERNAL | | | GFR | CHRONIC KIDNEY DISEASE, | | LAB | | | | IF FOUND OVER A 3 MONTH | | | | | | PERIOD.GFR <15: KIDNEY | | | | | | FAILURE.FOR | | | | | | AMERICANS, MULTIPLY THE | | | | | | CALCULATED GFR BY | | | | | | 1.210.Testing performed | | | | | | at [facility];[address] [place] [address] | | | | | | Blvd;[place] [address] | | | | + + + + + + + + | Specimen | + + | Blood specimen | | (specimen) | + + + +---------+ + + | Performing | Address | City/State/Zipcode | Phone Number | | Organization | | | | + +---------+ + + | EXTERNAL LAB | | | | + +---------+ + + HIV 1 Screen, Rapid (05/08/2016 10:49 AM PST) + + + + + + | Component | Value | Ref Range | Performed | Pathologist | | | | | At | Signature | + + + + + + | HIV 1 and 2 | NON REACTIVEComment: | | EXTERNAL | | | Ab, Rapid | Testing performed at | | LAB | | | | [facility] [address] | | | | | | [address];[place] [address] | | | | + + + + + + + + | Specimen | + + | | + + + +---------+ + + | Performing | Address | City/State/Zipcode | Phone Number | | Organization | | | | + +---------+ + + | EXTERNAL LAB | | | | + +---------+ + + Cryptococcal Antigen (05/08/2016 10:49 AM PST) + + + + + + | Component | Value | Ref Range | Performed | Pathologist | | | | | At | Signature | + + + + + + | SPECIMEN | SERUMComment: Testing | | EXTERNAL | | | SOURCE? | performed at [facility], [address] | | LAB | | | | [address], | | | | | | [place] [address] | | | | + + + + + + | CRYPTO AG | Comment: ACCESSION NO. | | EXTERNAL | | | CSF | | | LAB | | | | [id number] | | | | | | SOURCE | | | | | | SERUMRESULT | | | | | | | | | | | | | | | | | | NEGATIVETesting | | | | | | performed at [facility] | | | | | | [facility], | | | | | | [address], [place] | | | | | | [address] | | | | + + + + + + | CRYPTOCOCCU | REPORT STATUS | | EXTERNAL | | | S AG, CSF | FINAL | | LAB | | | | 05/10/2016Comment: | | | | | | Testing performed at | | | | | | [facility] | | | | | | [place], [address], | | | | | | [place] [address] | | | | + + + + + + + + | Specimen | + + | Cerebrospinal fluid | | sample (specimen) | + + + +---------+ + + | Performing | Address | City/State/Zipcode | Phone Number | | Organization | | | | + +---------+ + + | EXTERNAL LAB | | | | + +---------+ + + Rapid Plasma Reagin, Quant (05/08/2016 10:49 AM PST) + + + + + + | Component | Value | Ref Range | Performed | Pathologist | | | | | At | Signature | + + + + + + | RPR TITER | <1:1Comment: REFERENCE | | EXTERNAL | | | | RANGE: <1:1Reference | | LAB | | | | range: <1:1Testing | | | | | | performed at [facility], [address] | | | | | | [place] | | | | | | [place] [address] | | | | + + + + + + + + | Specimen | + + | Blood specimen | | (specimen) | + + + +---------+ + + | Performing | Address | City/State/Zipcode | Phone Number | | Organization | | | | + +---------+ + + | EXTERNAL LAB | | | | + +---------+ + + CBC no Differential (05/08/2016 4:06 AM PST) + + + + + + | Component | Value | Ref Range | Performed | Pathologist | | | | | At | Signature | + + + + + + | WBC | 7.35Comment: Testing | 3.80 - 11.00 | EXTERNAL | | | | performed at [facility], [address] | K/uL | LAB | | | | [address], | | | | | | [place] [address] | | | | + + + + + + | RED CELL | 4.62Comment: Testing | 4.20 - 5.70 | EXTERNAL | | | COUNT | performed at [facility], [address] | M/uL | LAB | | | | [address], | | | | | | [place] [address] | | | | + + + + + + | Hgb | 13.2Comment: Testing | 13.2 - 17.0 | EXTERNAL | | | | performed at [facility], [address] | g/dL | LAB | | | | [address], | | | | | | [place] [address] | | | | + + + + + + | Hematocrit, | 38.8 (L)Comment: Testing | 39.0 - 50.0 % | EXTERNAL | | | POC | performed at [facility], [address] | | LAB | | | | [address], | | | | | | [place] [address] | | | | + + + + + + | MCV | 84.1Comment: Testing | 80.0 - 100.0 fl | EXTERNAL | | | | performed at [facility], [address] | | LAB | | | | [address], | | | | | | [place] [address] | | | | + + + + + + | MCH | 28.5Comment: Testing | 27.0 - 34.0 pg | EXTERNAL | | | | performed at [facility], [address] | | LAB | | | | [address], | | | | | | [place] [address] | | | | + + + + + + | MCHC | 33.9Comment: Testing | 32.0 - 35.5 | EXTERNAL | | | | performed at [facility], [address] | g/dL | LAB | | | | [address], | | | | | | [place] [address] | | | | + + + + + + | RDW-CV | 48.1Comment: Testing | 37 - 53 fl | EXTERNAL | | | | performed at [facility], [address] | | LAB | | | | [address], | | | | | | [place] [address] | | | | + + + + + + | Platelet | 125 (L)Comment: Testing | 150 - 400 K/uL | EXTERNAL | | | Count | performed at [facility], [address] | | LAB | | | Plasma | [address], | | | | | | [place] [address] | | | | + + + + + + | MPV | 7.3Comment: Testing | fl | EXTERNAL | | | | performed at [facility], [address] | | LAB | | | | [address], | | | | | | [place], [place] [address] | | | | + + + + + + + + | Specimen | + + | | + + + +---------+ + + | Performing | Address | City/State/Zipcode | Phone Number | | Organization | | | | + +---------+ + + | EXTERNAL LAB | | | | + +---------+ + + Phenytoin Level, Total (05/08/2016 4:06 AM PST) + + + + + + | Component | Value | Ref Range | Performed | Pathologist | | | | | At | Signature | + + + + + + | Date of | UNKNOWNComment: Testing | | EXTERNAL | | | Last Dose | performed at [facility];[address] | | LAB | | | | [address];[place] | | | | | | [address] | | | | + + + + + + | Time of | UNKNOWNComment: Testing | | EXTERNAL | | | Last Dose | performed at [facility];[address] | | LAB | | | | [address];[place] | | | | | | [address] | | | | + + + + + + | Dilantin | 8.9 (L)Comment: Testing | 10 - 20 ug/mL | EXTERNAL | | | | performed at [facility];[address] | | LAB | | | | [address];[place] | | | | | | [address] | | | | + + + + + + + + | Specimen | + + | Blood specimen | | (specimen) | + + + +---------+ + + | Performing | Address | City/State/Zipcode | Phone Number | | Organization | | | | + +---------+ + + | EXTERNAL LAB | | | | + +---------+ + + Comprehensive Metabolic Panel (05/08/2016 4:06 AM PST) + + + + + + | Component | Value | Ref Range | Performed | Pathologist | | | | | At | Signature | + + + + + + | Na | 138Comment: Testing | 135 - 145 | EXTERNAL | | | | performed at [facility];888 | mmol/L | LAB | | | | [address];[place] | | | | | | [address] | | | | + + + + + + | K | 3.8Comment: SLT | 3.5 - 4.9 | EXTERNAL | | | | HEMOLYSISTesting | mmol/L | LAB | | | | performed at [facility];[address] | | | | | | [address];[place] | | | | | | [address] | | | | + + + + + + | Cl | 103Comment: Testing | 99 - 109 mmol/L | EXTERNAL | | | | performed at [facility];[address] | | LAB | | | | [address];[place] | | | | | | [address] | | | | + + + + + + | CO2 | 24Comment: Testing | 23 - 32 mmol/L | EXTERNAL | | | | performed at [facility];[address] | | LAB | | | | [address];[place] | | | | | | [address] | | | | + + + + + + | Anion Gap | 15Comment: Testing | 5 - 20 mmol/L | EXTERNAL | | | | performed at [facility];[address] | | LAB | | | | [address];[place] | | | | | | [address] | | | | + + + + + + | Glucose, | 98Comment: Testing | 65 - 99 mg/dL | EXTERNAL | | | Fasting | performed at [facility];[address] | | LAB | | | | [address];[place] | | | | | | [address] | | | | + + + + + + | BUN | 12Comment: Testing | 8 - 25 mg/dL | EXTERNAL | | | | performed at [facility];[address] | | LAB | | | | [address];[place] | | | | | | [address] | | | | + + + + + + | Creatinine | 0.75Comment: Testing | 0.70 - 1.30 | EXTERNAL | | | | performed at [facility];888 | mg/dL | LAB | | | | [address];[place] | | | | | | [address] | | | | + + + + + + | BUN/Creatin | 16Comment: Testing | | EXTERNAL | | | ine Ratio | performed at [facility];[address] | | LAB | | | | [address];[place] | | | | | | [address] | | | | + + + + + + | Calcium | 8.3 (L)Comment: Testing | 8.5 - 10.5 | EXTERNAL | | | | performed at [facility];888 | mg/dL | LAB | | | | [address];[place] | | | | | | [address] | | | | + + + + + + | Protein, | 6.1 (L)Comment: Testing | 6.3 - 8.2 g/dL | EXTERNAL | | | Total | performed at [facility];[address] | | LAB | | | | [address];[place] | | | | | | [address] | | | | + + + + + + | Albumin | 3.1 (L)Comment: Testing | 3.6 - 5.0 g/dL | EXTERNAL | | | | performed at [facility];[address] | | LAB | | | | [address];[place] | | | | | | [address] | | | | + + + + + + | Globulin | 3.0Comment: Testing | 1.3 - 4.9 g/dL | EXTERNAL | | | | performed at [facility];[address] | | LAB | | | | [address];[place] | | | | | | [address] | | | | + + + + + + | A/G Ratio | 1.1Comment: Testing | 1.0 - 2.4 | EXTERNAL | | | | performed at [facility];[address] | | LAB | | | | [address];[place] | | | | | | [address] | | | | + + + + + + | Bilirubin | 0.3Comment: Testing | 0.1 - 1.5 mg/dL | EXTERNAL | | | Total | performed at [facility];[address] | | LAB | | | | [address];[place] | | | | | | [address] | | | | + + + + + + | ALP, | 48Comment: Testing | 35 - 115 U/L | EXTERNAL | | | External | performed at [facility];[address] | | LAB | | | | [address];[place] | | | | | | [address] | | | | + + + + + + | AST | 45Comment: SLT | 10 - 45 U/L | EXTERNAL | | | | HEMOLYSISTesting | | LAB | | | | performed at [facility];[address] | | | | | | [address];[place] | | | | | | [address] | | | | + + + + + + | ALT | 83 (H)Comment: Testing | 10 - 65 U/L | EXTERNAL | | | | performed at [facility];[address] | | LAB | | | | [address];[place] | | | | | | [address] | | | | + + + + + + | Estimated | >60Comment: GFR <60: | mL/min/1.73m2 | EXTERNAL | | | GFR | CHRONIC KIDNEY DISEASE, | | LAB | | | | IF FOUND OVER A 3 MONTH | | | | | | PERIOD.GFR <15: KIDNEY | | | | | | FAILURE.FOR | | | | | | AMERICANS, MULTIPLY THE | | | | | | CALCULATED GFR BY | | | | | | 1.210.Testing performed | | | | | | at [facility];[address];[place] [address] | | | | + + + + + + + + | Specimen | + + | Blood specimen | | (specimen) | + + + +---------+ + + | Performing | Address | City/State/Zipcode | Phone Number | | Organization | | | | + +---------+ + + | EXTERNAL LAB | | | | + +---------+ + + CT Angiogram Head w Contrast (05/07/2016 8:49 PM PST) + + | Specimen | + + | | + + + + + | Impressions | Performed At | + + + | 1. Brain is negative for acute pathology. 2. No abnormal | | | enhancement noted. 3. Normal CT angiogram of the head without | | | evidence of stenosis, occlusion, or aneurysm in the cerebral arteries. | | | 4. Nonspecific mild to moderate supratentorial volume loss. | | | | | + + + + + + | Narrative | Performed At | + + + | FELICIANO LEGGETT 1995 20 years Male CTA HEAD 05/07/2016 8:49 | | | PM HISTORY: Reported subarachnoid hemorrhage. COMPARISON: Head | | | CT May 06, 2016. TECHNIQUE: Axial 0.625-mm images were | | | acquired from the skull base to the cranial vertex according to a CT | | | angiography protocol. Additionally, 5-mm axial precontrast and | | | post-contrast images of the head were acquired from the foramen magnum | | | through the cranial vertex. Multiplanar CT angiographic MIP | | | reconstructions were performed. The data set was also examined with | | | [employer] 3D software for evaluation of the cerebral vasculature. As | | | needed, adjustment of the mA and/or kV was done according to patient's | | | size. IV contrast: 100 mL IsoVue 370 FINDINGS: CT HEAD: Mild to | | | moderate somewhat diffuse supratentorial volume loss is again seen. | | | No intracranial hemorrhage, hydrocephalus, infarct or mass is | | | observed. A tiny incidental falcine lipoma measures 2 mm. Postcontrast | | | imaging fails to demonstrate abnormal enhancement. The dural venous | | | sinuses are patent. An incidental left maxillary sinus mucous | | | retention cyst measures 13 mm. No orbital abnormality is found. CT | | | ANGIOGRAM HEAD: The bilateral vertebral arteries are and patent. The | | | basilar artery and bilateral posterior cerebral arteries are widely | | | patent. Bilateral posterior communicating arteries are patent without | | | aneurysm. The bilateral internal carotid, middle cerebral, and | | | anterior cerebral arteries are widely patent. No anterior | | | communicating artery aneurysm is found. | | + + + + + | Procedure Note | + + | Alec, Rad Conversion - 01/10/2019 8:49 PM PDT FELICIANO LEGGETT1995 20 years MaleCTA | | HEAD05/07/2016 8:49 PM HISTORY: Reported subarachnoid hemorrhage. COMPARISON: Head CT | | May 06, 2016. TECHNIQUE:Axial 0.625-mm images were acquired from the skull base to | | the cranial vertex according to a CT angiography protocol. Additionally, 5-mm axial | | precontrast and post-contrast images of the head were acquired from the foramen magnum | | through the cranial vertex. Multiplanar CT angiographic MIP reconstructions were | | performed. The data set was also examined with [employer] 3[employer] software for evaluation of | | the cerebral vasculature. As needed, adjustment of the mA and/or kV was done according | | to patient's size.IV contrast: 100 mL IsoVue 370 FINDINGS:CT HEAD: Mild to moderate | | somewhat diffuse supratentorial volume loss is again seen. No intracranial hemorrhage, | | hydrocephalus, infarct or mass is observed. A tiny incidental falcine lipoma measures 2 | | mm. Postcontrast imaging fails to demonstrate abnormal enhancement. The dural venous | | sinuses are patent. An incidental left maxillary sinus mucous retention cyst measures 13 | | mm. No orbital abnormality is found. CT ANGIOGRAM HEAD: The bilateral vertebral | | arteries are and patent. The basilar artery and bilateral posterior cerebral arteries | | are widely patent. Bilateral posterior communicating arteries are patent without | | aneurysm. The bilateral internal carotid, middle cerebral, and anterior cerebral | | arteries are widely patent. No anterior communicating artery aneurysm is found. | | IMPRESSION: 1. Brain is negative for acute pathology.2. No abnormal enhancement | | noted.3. Normal CT angiogram of the head without evidence of stenosis, occlusion, or | | aneurysm in the cerebral arteries. 4. Nonspecific mild to moderate supratentorial | | volume loss. | |The bilateral internal carotid, middle cerebral, and anterior cerebral arteries are widely patent. No anterior communicating artery aneurysm is found. | | | |IMPRESSION: | |1. Brain is negative for acute pathology. | |2. No abnormal enhancement noted. | |3. Normal CT angiogram of the head without evidence of stenosis, occlusion, or aneurysm in the cerebral arteries. | | | |4. Nonspecific mild to moderate supratentorial volume loss. | | | | | + + Culture, CSF, Smear (05/07/2016 5:14 PM PST) + + | Specimen | + + | Cerebrospinal fluid | | sample (specimen) | + + + + + | Narrative | Performed At | + + + | Specimen Description CEREBROSPINAL FLUID GRAM | EXTERNAL LAB | | STAIN 4+ | | | WBC'S SEEN | | | NO ORGANISMS SEEN CULTURE | | | NO GROWTH 3 DAYS | | + + + + +---------+ + + | Performing | Address | City/State/Zipcode | Phone Number | | Organization | | | | + +---------+ + + | EXTERNAL LAB | | | | + +---------+ + + Cryptococcus Ab, Total, CSF (05/07/2016 5:13 PM PST) + + | Specimen | + + | | + + + + + | Narrative | Performed At | + + + | CRYPTOCOCCUS AB, CSF <1:1 UNIT: NOT | EXTERNAL LAB | | REPORTED REFERENCE RANGE: <1:1 INTERPRETIVE CRITERIA: | | | <1:1 ANTIBODY NOT DETECTED > OR = | | | 1:1 ANTIBODY DETECTED DIAGNOSIS OF INFECTIONS OF THE CENTRAL | | | NERVOUS SYSTEM CAN BE ACCOMPLISHED BY DEMONSTRATING THE PRESENCE OF | | | INTRATHECALLY-PRODUCED SPECIFIC ANTIBODY. HOWEVER, INTERPRETATION OF | | | RESULTS IS COMPLICATED BY LOW ANTIBODY LEVELS FOUND IN CSF, PASSIVE | | | TRANSFER OF ANTIBODY FROM BLOOD, AND CONTAMINATION VIA BLOODY TAPS. | | | THIS TEST WAS DEVELOPED AND ITS ANALYTICAL PERFORMANCE | | | CHARACTERISTICS HAVE BEEN DETERMINED BY [employer]. IT HAS NOT | | | BEEN CLEARED OR APPROVED BY THE U.S. FOOD AND DRUG ADMINISTRATION. | | | THE FDA HAS DETERMINED THAT SUCH CLEARANCE OR APPROVAL IS NOT | | | NECESSARY. THIS ASSAY HAS BEEN VALIDATED PURSUANT TO THE CLIA | | | REGULATIONS AND IS USED FOR CLINICAL PURPOSES. Testing performed at | | | [facility], [address], [place] [address] | | + + + + +---------+ + + | Performing | Address | City/State/Zipcode | Phone Number | | Organization | | | | + +---------+ + + | EXTERNAL LAB | | | | + +---------+ + + HISTORICAL MICROBIOLOGY RESULT (05/07/2016 5:13 PM PST) + + | Specimen | + + | Cerebrospinal fluid | | sample (specimen) | + + + + + | Narrative | Performed At | + + + | SOURCE CEREBROSPINAL FLUID | EXTERNAL LAB | | Testing performed at [facility];[address];[place] [address] HSV DNA | | | Type 1 Not Detected Testing performed | | | at [facility], [address] [place] [address] HSV DNA Type 2 | | | DETECTED Abnormal Testing performed at | | | [facility], [address] [place] [address] COMMENT | | | SEE BELOW THE DETECTION OF HERPES SIMPLEX | | | VIRUS TYPE 2 DNA IS BASED ON REAL TIME AMPLIFICATION. THE DIAGNOSIS | | | OF HSV INFECTION SHOULD NOT RELY SOLELY UPON THE RESULT OF A PCR | | | ASSAY, BUT SHOULD BE CONSIDERED IN CONJUNCTION WITH CLINICAL | | | PRESENTATION AND ADDITIONAL DIAGNOSTIC TESTS. Testing performed at | | | [place] [address] COMMENT | | | SEE BELOW THIS TEST WAS DEVELOPED AND ITS | | | PERFORMANCE CHARACTERISTICS DETERMINED BY [facility]. THE U.S. FOOD AND | | | DRUG ADMINISTRATION (FDA) HAS NOT APPROVED OR CLEARED THIS TEST. | | | HOWEVER, FDA APPROVAL OR CLEARANCE IS CURRENTLY NOT REQUIRED FOR | | | CLINICAL USE OF THIS TEST. THE RESULTS ARE NOT INTENDED TO BE USED | | | THE SOLE MEANS FOR CLINICAL DIAGNOSIS OR PATIENT MANAGEMENT | | | DECISIONS. [facility] IS AUTHORIZED UNDER CLINICAL LABORATORY IMPROVEMENT | | | AMENDMENTS (CLIA) TO PERFORM HIGH-COMPLEXITY TESTING. Testing | | | performed at [facility], [address] [place] [address] | | + + + + +---------+ + + | Performing | Address | City/State/Zipcode | Phone Number | | Organization | | | | + +---------+ + + | EXTERNAL LAB | | | | + +---------+ + + Protein, CSF (05/07/2016 5:13 PM PST) + + | Specimen | + + | Cerebrospinal fluid | | sample (specimen) | + + + + + | Narrative | Performed At | + + + | CSF TOTAL PROTEIN [address] | EXTERNAL LAB | | EXCEEDINGLY BLOODY SPECIMEN Testing performed at [facility];[address];[place] [address] | | + + + + +---------+ + + | Performing | Address | City/State/Zipcode | Phone Number | | Organization | | | | + +---------+ + + | EXTERNAL LAB | | | | + +---------+ + + Glucose, CSF (05/07/2016 5:13 PM PST) + + | Specimen | + + | Cerebrospinal fluid | | sample (specimen) | + + + + + | Narrative | Performed At | + + + | CSF GLUCOSE 102 High | EXTERNAL LAB | | EXCEEDINGLY BLOODY SPECIMEN Testing performed at [facility];[address];[place] [address] | | + + + + +---------+ + + | Performing | Address | City/State/Zipcode | Phone Number | | Organization | | | | + +---------+ + + | EXTERNAL LAB | | | | + +---------+ + + FL Lumbar Puncture Diagnostic (05/07/2016 5:12 PM PST) + + | Specimen | + + | | + + + + + | Impressions | Performed At | + + + | Successful Diagnostic lumbar puncture under fluoroscopy. No | | | procedural complications encoElectronically signed by Carlitos Hoff on | | | 05/07/2016 5:15 PMuntered. | | + + + + + + | Narrative | Performed At | + + + | PROCEDURE Diagnostic lumbar puncture under fluoroscopic guidance. | | | HISTORY The patient is a 20-year-old male with significant past | | | medical history of developmental delay, ADHD, bipolar, autism spectrum | | | disorder, who is also a resident of mental facility was admitted to | | | [facility] 05/06/2016 for new onset seizures. PRE PROCEDURAL | | | LABORATORY DATA Lab work indicates INR 1.1, platelet count of | | | 152,000. DIAGNOSTIC IMAGING DATA Impression 1. ?Focal areas of | | | FLAIR and T2 hyperintensity involving both caudate heads and the | | | cortical surfaces of the medial parietal lobes and occipital lobes | | | suspicious for status epilepticus or possibly a viral encephalitis | | | such as herpes encephalitis. ?CSF evaluation is recommended if not | | | already done. 2. ?Moderate diffuse cerebral atrophy which greater | | | than expected for a 20-year-old male which may be related to the | | | history of long-term seizure disorder. ? * * ALLERGIES* * | | | NO KNOWN DRUG ALLERGIES DESCRIPTION OF PROCEDURE I met this | | | patient in the fluoroscopy room. The patient was awake, alert, | | | oriented times 3, and in no acute distress. We had a discussion | | | about the procedure, the risks involved, benefits, potential medical | | | consequences, and the alternatives. The patient verbalized | | | understanding of this and their desire was to proceed with the | | | procedure. Therefore, written informed consent was obtained. The | | | patient was brought to the radiology department for the procedure. | | | Appropriate physiologic monitoring, maintenance of adequate conscious | | | sedation, and independent retirement supervision of conscious | | | sedation was performed throughout the procedure. A preprocedure | | | pause timeout was performed verifying the procedure, site, and the | | | patient; all members of the team are in agreement. The patient | | | placed in the prone position on the fluoroscopy table. A suitable site | | | for lumbar puncture at level L4-L5 for a first and second attempt, | | | followed by L5-S1 for a third by Dr. Sethi was selected. The skin | | | of the back was prepped with Betadine circular scrubs and draped. | | | Local anesthesia was obtained with lidocaine 1% with sodium | | | bicarbonate, with good effect. Under intermittent fluoroscopic | | | observation a initially 20-gauge spinal needle was used, for the third | | | attempt a 22-gauge spinal needle was gradually advanced. There was | | | return of bloody cerebrospinal fluid, approximately 11 mL was obtained | | | and distributed into 3 sterile vials. This was sent to the | | | laboratory. When 11 mL was obtained, the cerebrospinal fluid stopped | | | flowing and the needle was withdrawn, and a Tegaderm dressing was | | | applied. The patient tolerated the procedure well. No procedural | | | complications were encountered. Total fluoroscopy time: 0.9 | | | minutes Total fluoroscopy dose: 56.1 mGy Opening pressure: Not | | | able to measure | | + + + + + | Procedure Note | + + | Alec, Rad Conversion - 01/10/2019 8:49 PM PDT PROCEDUREDiagnostic lumbar puncture | | under fluoroscopic guidance. HISTORYThe patient is a 20-year-old male with significant | | past medical history of developmental delay, ADHD, bipolar, autism spectrum disorder, | | who is also a resident of [facility] was admitted to the hospital 05/06/2016 for new | | onset seizures. PRE PROCEDURAL LABORATORY DATALab work indicates INR 1.1, platelet | | count of 152,000. DIAGNOSTIC IMAGING DATAImpression1. ?Focal areas of FLAIR and T2 | | hyperintensity involving both caudate heads and the cortical surfaces of the medial | | parietal lobes and occipital lobes suspicious for status epilepticus or possibly a viral | | encephalitis such as herpes encephalitis. ?CSF evaluation is recommended if not already | | done.2. ?Moderate diffuse cerebral atrophy which greater than expected for a | | 20-year-old male which may be related to the history of long-term seizure disorder.? * | | * ALLERGIES* *NO KNOWN DRUG ALLERGIES DESCRIPTION OF PROCEDUREI met this patient in | | the fluoroscopy room. The patient was awake, alert, oriented times 3, and in no acute | | distress. We had a discussion about the procedure, the risks involved, benefits, | | potential medical consequences, and the alternatives. The patient verbalized | | understanding of this and their desire was to proceed with the procedure. Therefore, | | written informed consent was obtained. The patient was brought to the radiology | | department for the procedure. Appropriate physiologic monitoring, maintenance of | | adequate conscious sedation, and independent retirement supervision of conscious | | sedation was performed throughout the procedure. A preprocedure pause timeout was | | performed verifying the procedure, site, and the patient; all members of the team are in | | agreement. The patient placed in the prone position on the fluoroscopy table. A | | suitable site for lumbar puncture at level L4-L5 for a first and second attempt, | | followed by L5-S1 for a third by Dr. Sethi was selected. The skin of the back was | | prepped with Betadine circular scrubs and draped. Local anesthesia was obtained with | | lidocaine 1% with sodium bicarbonate, with good effect. Under intermittent fluoroscopic | | observation a initially 20-gauge spinal needle was used, for the third attempt a | | 22-gauge spinal needle was gradually advanced. There was return of bloody cerebrospinal | | fluid, approximately 11 mL was obtained and distributed into 3 sterile vials. This was | | sent to the laboratory. When 11 mL was obtained, the cerebrospinal fluid stopped flowing | | and the needle was withdrawn, and a Tegaderm dressing was applied. The patient | | tolerated the procedure well. No procedural complications were encountered. Total | | fluoroscopy time: 0.9 minutes Total fluoroscopy dose: 56.1 mGy Opening pressure: Not | | able to measure IMPRESSION: Successful Diagnostic lumbar puncture under fluoroscopy. No | | procedural complications enco | | PMuntered. | | and the needle was withdrawn, and a Tegaderm dressing was applied. | | | |The patient tolerated the procedure well. No procedural complications were encountered. | | | |Total fluoroscopy time: 0.9 minutes | | | |Total fluoroscopy dose: 56.1 mGy | | | |Opening pressure: Not able to measure | | | |IMPRESSION: | | | |Successful Diagnostic lumbar puncture under fluoroscopy. No procedural complications encoEl ectronically signed by Carlitos Hoff on 05/07/2016 5:15 PMuntered. | | | | | | | | | + + Protime INR (05/07/2016 1:40 PM PST) + + + + + + | Component | Value | Ref Range | Performed | Pathologist | | | | | At | Signature | + + + + + + | INR | 1.1Comment: REFERENCE | | EXTERNAL | | | | RANGE:0.9 - 1.2 | | LAB | | | | NON-ANTICOAGULATED2.0 | | | | | | - 3.0 ALL OTHER | | | | | | THERAPEUTIC | | | | | | INDICATIONS2.5 - 3.5 | | | | | | MECHANICAL HEART VALVES, | | | | | | RECURRENT OR SYSTEMIC | | | | | | EMBOLISMTesting | | | | | | performed at [facility];[address] | | | | | | [facility];[place], [place] | | | | | | [address] | | | | + + + + + + + + | Specimen | + + | Blood specimen | | (specimen) | + + + +---------+ + + | Performing | Address | City/State/Zipcode | Phone Number | | Organization | | | | + +---------+ + + | EXTERNAL LAB | | | | + +---------+ + + External Lab: CBC (05/07/2016 1:40 PM PST) + + + + + + | Component | Value | Ref Range | Performed | Pathologist | | | | | At | Signature | + + + + + + | WBC | 10.29Comment: Testing | 3.80 - 11.00 | EXTERNAL | | | | performed at [facility];[address] | K/uL | LAB | | | | [address];[place] | | | | | | [address] | | | | + + + + + + | RED CELL | 4.90Comment: Testing | 4.20 - 5.70 | EXTERNAL | | | COUNT | performed at [facility];[address] | M/uL | LAB | | | | [address];[place] | | | | | | [address] | | | | + + + + + + | Hgb | 13.7Comment: Testing | 13.2 - 17.0 | EXTERNAL | | | | performed at [facility];[address] | g/dL | LAB | | | | [address];[place] | | | | | | [address] | | | | + + + + + + | Hematocrit, | 40.4Comment: Testing | 39.0 - 50.0 % | EXTERNAL | | | POC | performed at [facility];[address] | | LAB | | | | [address];[place] | | | | | | [address] | | | | + + + + + + | MCV | 82.5Comment: Testing | 80.0 - 100.0 fl | EXTERNAL | | | | performed at [facility];[address] | | LAB | | | | [address];[place] | | | | | | [address] | | | | + + + + + + | MCH | 28.0Comment: Testing | 27.0 - 34.0 pg | EXTERNAL | | | | performed at [facility];[address] | | LAB | | | | [address];[place] | | | | | | [address] | | | | + + + + + + | MCHC | 33.9Comment: Testing | 32.0 - 35.5 | EXTERNAL | | | | performed at [facility];[address] | g/dL | LAB | | | | [address];[place] | | | | | | [address] | | | | + + + + + + | RDW-CV | 46.4Comment: Testing | 37 - 53 fl | EXTERNAL | | | | performed at [facility];[address] | | LAB | | | | [address];[place] | | | | | | [address] | | | | + + + + + + | Platelet | 152Comment: Testing | 150 - 400 K/uL | EXTERNAL | | | Count | performed at [facility];[address] | | LAB | | | Plasma | [address];[place] | | | | | | [address] | | | | + + + + + + | MPV | 6.8Comment: Testing | fl | EXTERNAL | | | | performed at [facility];[address] | | LAB | | | | [address];[place] | | | | | | [address] | | | | + + + + + + | Differentia | AUTOMATEDComment: | | EXTERNAL | | | l Type | Testing performed at | | LAB | | | | [facility];[address];[place] [address] | | | | + + + + + + | % Segmented | 65.46Comment: Testing | % | EXTERNAL | | | | performed at [facility];[address] | | LAB | | | Neutrophils | [address];[place] | | | | | | [address] | | | | + + + + + + | % | 26.25Comment: Testing | % | EXTERNAL | | | Lymphocytes | performed at [facility];[address] | | LAB | | | | [address];[place] | | | | | | [address] | | | | + + + + + + | % Monocytes | 7.82Comment: Testing | % | EXTERNAL | | | | performed at [facility];[address] | | LAB | | | | [address];[place] | | | | | | [address] | | | | + + + + + + | % | 0.21Comment: Testing | % | EXTERNAL | | | Eosinophils | performed at [facility];[address] | | LAB | | | | [address];[place] | | | | | | [address] | | | | + + + + + + | % Basophils | 0.26Comment: Testing | % | EXTERNAL | | | | performed at [facility];[address] | | LAB | | | | [address];[place] | | | | | | [address] | | | | + + + + + + | Absolute | 6.74Comment: Testing | 1.90 - 7.40 | EXTERNAL | | | Segmented | performed at [facility];[address] | K/uL | LAB | | | Neutrophils | [address];[place] | | | | | | [address] | | | | + + + + + + | Absolute | 2.70Comment: Testing | 1.00 - 3.90 | EXTERNAL | | | Lymphocytes | performed at [facility];[address] | K/uL | LAB | | | | [address];[place] | | | | | | [address] | | | | + + + + + + | Absolute | 0.80Comment: Testing | 0.00 - 0.80 | EXTERNAL | | | Monocytes | performed at [facility];[address] | K/uL | LAB | | | | [address];[place] | | | | | | [address] | | | | + + + + + + | Absolute | 0.02Comment: Testing | 0.00 - 0.50 | EXTERNAL | | | Eosinophils | performed at [facility];[address] | K/uL | LAB | | | | [address];[place] | | | | | | [address] | | | | + + + + + + | Absolute | 0.03Comment: Testing | 0.00 - 0.10 | EXTERNAL | | | Basophils | performed at [facility];[address] | K/uL | LAB | | | | [address];[place] | | | | | | [address] | | | | + + + + + + + + | Specimen | + + | Blood specimen | | (specimen) | + + + +---------+ + + | Performing | Address | City/State/Zipcode | Phone Number | | Organization | | | | + +---------+ + + | EXTERNAL LAB | | | | + +---------+ + + MRI Brain wo Contrast (05/07/2016 11:50 AM PST) + + | Specimen | + + | | + + + + + | Impressions | Performed At | + + + | 1. Focal areas of FLAIR and T2 hyperintensity involving both | | | caudate heads and the cortical surfaces of the medial parietal lobes | | | and occipital lobes suspicious for status epilepticus or possibly a | | | viral encephalitis such as herpes encephalitis. CSF evaluation is | | | recommended if not already done. 2. Moderate diffuse cerebral | | | atrophy which greater than expected for a 20-year-old male which may | | | be related to the history of long-term seizure disorder. | | | | | + + + + + + | Narrative | Performed At | + + + | [facility] MRI BRAIN WO CONTRAST 05/07/2016 11:50 AM | | | HISTORY: 20 years. Male. Seizure. TECHNIQUE: Incomplete | | | study. Patient could not tolerate the entire exam. Only the | | | following noncontrast sequences could be obtained: Axial DWI and 80 mL | | | matter, axial T2* GRE, axial T2 FLAIR, axial T2, axial T1, sagittal | | | T2 FLAIR, coronal T2 FLAIR Imaging was performed on a 1.5 Francie MRI | | | system. Multiplanar sequences were acquired according to a standard | | | department protocol without contrast. COMPARISON: Outside | | | noncontrast CT head performed at [facility] 05/06/2016. | | | FINDINGS: The FLAIR and T2 sequences demonstrate hyperintensity of | | | the cortical clemons matter and subcortical white matter of the medial | | | parietal lobes and posterior occipital lobes as well as in the | | | bilateral caudate heads. The distribution and appearance is | | | unusual. The DWI sequence shows a few potentially millimeter sized | | | areas of restricted diffusion at the cortical surface of the right and | | | left parietal lobes, see images 33 and 34 of series 2. The T2* GRE | | | sequence does not show evidence of hemorrhagic transformation in | | | these areas of T2 signal abnormality. There is no evidence of | | | cortical vein or dural venous sinus thrombosis. Overall the findings | | | suggest status epilepticus. Alternatively given the multifocal | | | nature of the finding involving the cortex, an encephalitis such as | | | herpes encephalitis should be considered. The ventricles, cisterns | | | and sulci are enlarged indicating moderate diffuse cerebral atrophy | | | much greater than would be expected for a 20-year-old male. This may | | | be due to the history of seizure disorder. The midline | | | structures including the corpus callosum, constanza, cerebellar vermis, | | | pineal gland and pituitary are normal. A megacisterna magna is | | | incidentally noted which is a normal variant. No masses are seen in | | | the region of the cerebellopontine angles or internal auditory | | | canals. The orbits and their contents are normal. The paranasal | | | sinuses are well aerated. No air-fluid levels or mucosal thickening | | | is noted. No fluid seen in the mastoids. The osseous structures of | | | the calvaria and upper cervical spine demonstrate normal bone | | | marrow signal intensity. The soft tissues of the oropharynx and | | | upper neck appear normal on the sagittal sequences. The intracranial | | | arteries demonstrate normal flow voids on the T2 sequence. No large | | | aneurysm is noted. The dural venous sinuses also demonstrate | | | normal flow-voids. | | + + + + + | Procedure Note | + + | Alec, Rad Conversion - 01/10/2019 8:49 PM PDT FELICIANO GALVAN BRAIN WO | | [id number]/10/2016 11:50 AM HISTORY:20 years. Male. Seizure. TECHNIQUE:Incomplete | | study. Patient could not tolerate the entire exam. Only the following noncontrast | | sequences could be obtained: Axial DWI and 80 mL matter, axial T2* GRE, axial T2 FLAIR, | | axial T2, axial T1, sagittal T2 FLAIR, coronal T2 FLAIR Imaging was performed on a 1.5 | | Francie MRI system. Multiplanar sequences were acquired according to a standard | | department protocol without contrast. COMPARISON:Outside noncontrast CT head performed | | at [facility] 05/06/2016. FINDINGS:The FLAIR and T2 sequences demonstrate | | hyperintensity of the cortical clemons matter and subcortical white matter of the medial | | parietal lobes and posterior occipital lobes as well as in the bilateral caudate heads. | | The distribution and appearance is unusual. The DWI sequence shows a few potentially | | millimeter sized areas of restricted diffusion at the cortical surface of the right and | | left parietal lobes, see images 33 and 34 of series 2. The T2* GRE sequence does not | | show evidence of hemorrhagic transformation in these areas of T2 signal abnormality. | | There is no evidence of cortical vein or dural venous sinus thrombosis. Overall the | | findings suggest status epilepticus. Alternatively given the multifocal nature of the | | finding involving the cortex, an encephalitis such as herpes encephalitis should be | | considered. The ventricles, cisterns and sulci are enlarged indicating moderate diffuse | | cerebral atrophy much greater than would be expected for a 20-year-old male. This may | | be due to the history of seizure disorder. The midline structures including the corpus | | callosum, constanza, cerebellar vermis, pineal gland and pituitary are normal. A | | megacisterna magna is incidentally noted which is a normal variant. No masses are seen | | in the region of the cerebellopontine angles or internal auditory canals. The orbits | | and their contents are normal. The paranasal sinuses are well aerated. No air-fluid | | levels or mucosal thickening is noted. No fluid seen in the mastoids. The osseous | | structures of the calvaria and upper cervical spine demonstrate normal bone marrow | | signal intensity. The soft tissues of the oropharynx and upper neck appear normal on | | the sagittal sequences. The intracranial arteries demonstrate normal flow voids on the | | T2 sequence. No large aneurysm is noted. The dural venous sinuses also demonstrate | | normal flow-voids. IMPRESSION: 1. Focal areas of FLAIR and T2 hyperintensity involving | | both caudate heads and the cortical surfaces of the medial parietal lobes and occipital | | lobes suspicious for status epilepticus or possibly a viral encephalitis such as herpes | | encephalitis. CSF evaluation is recommended if not already done.2. Moderate diffuse | | cerebral atrophy which greater than expected for a 20-year-old male which may be related | | to the history of long-term seizure disorder. | + + Albumin (05/07/2016 10:39 AM PST) + + + + + + | Component | Value | Ref Range | Performed | Pathologist | | | | | At | Signature | + + + + + + | Albumin | 3.6Comment: Testing | 3.6 - 5.0 g/dL | EXTERNAL | | | | performed at [facility], [address] | | LAB | | | | [facility], | | | | | | [place] [address] | | | | + + + + + + + + | Specimen | + + | Blood specimen | | (specimen) | + + + +---------+ + + | Performing | Address | City/State/Zipcode | Phone Number | | Organization | | | | + +---------+ + + | EXTERNAL LAB | | | | + +---------+ + + Phenytoin Level, Total (05/07/2016 10:39 AM PST) + + + + + + | Component | Value | Ref Range | Performed | Pathologist | | | | | At | Signature | + + + + + + | Date of | NOT GIVENComment: | | EXTERNAL | | | Last Dose | Testing performed at | | LAB | | | | [facility] | | | | | | [address];[place] [address] | | | | + + + + + + | Time of | NOT GIVENComment: | | EXTERNAL | | | Last Dose | Testing performed at | | LAB | | | | [facility];[address];[place] [address] | | | | + + + + + + | Dilantin | 6.9 (L)Comment: Testing | 10 - 20 ug/mL | EXTERNAL | | | | performed at [facility];[address] | | LAB | | | | [address];[place] | | | | | | [address] | | | | + + + + + + + + | Specimen | + + | Blood specimen | | (specimen) | + + + +---------+ + + | Performing | Address | City/State/Zipcode | Phone Number | | Organization | | | | + +---------+ + + | EXTERNAL LAB | | | | + +---------+ + + External Lab: CBC (05/07/2016 4:21 AM PST) + + + + + + | Component | Value | Ref Range | Performed | Pathologist | | | | | At | Signature | + + + + + + | WBC | 14.42 (H)Comment: | 3.80 - 11.00 | EXTERNAL | | | | Testing performed at | K/uL | LAB | | | | [facility], [address] | | | | | | [place] | | | | | | [address] | | | | + + + + + + | RED CELL | 4.89Comment: Testing | 4.20 - 5.70 | EXTERNAL | | | COUNT | performed at [facility], [address] | M/uL | LAB | | | | [address], | | | | | | [place] [address] | | | | + + + + + + | Hgb | 13.8Comment: Testing | 13.2 - 17.0 | EXTERNAL | | | | performed at [facility], [address] | g/dL | LAB | | | | [address], | | | | | | [place] [address] | | | | + + + + + + | Hematocrit, | 40.6Comment: Testing | 39.0 - 50.0 % | EXTERNAL | | | POC | performed at [facility], [address] | | LAB | | | [address], | | | | | | [place] [address] | | | | + + + + + + | MCV | 83.1Comment: Testing | 80.0 - 100.0 fl | EXTERNAL | | | | performed at [facility], [address] | | LAB | | | | [address], | | | | | | [place] [address] | | | | + + + + + + | MCH | 28.2Comment: Testing | 27.0 - 34.0 pg | EXTERNAL | | | | performed at [facility], [address] | | LAB | | | | [place], | | | | | | [place] [address] | | | | + + + + + + | MCHC | 34.0Comment: Testing | 32.0 - 35.5 | EXTERNAL | | | | performed at [facility], [address] | g/dL | LAB | | | | [place], | | | | | | [place] [address] | | | | + + + + + + | RDW-CV | 46.4Comment: Testing | 37 - 53 fl | EXTERNAL | | | | performed at [facility], [address] | | LAB | | | | [address], | | | | | | [place] [address] | | | | + + + + + + | Platelet | 140 (L)Comment: Testing | 150 - 400 K/uL | EXTERNAL | | | Count | performed at [facility], [address] | | LAB | | | Plasma | [place], | | | | | | [place] [address] | | | | + + + + + + | MPV | 7.4Comment: Testing | fl | EXTERNAL | | | | performed at [facility], [address] | | LAB | | | | [address] [place], | | | | | | [place] [address] | | | | + + + + + + | Differentia | AUTOMATEDComment: | | EXTERNAL | | | l Type | Testing performed at | | LAB | | | | [facility], [address] | | | | | | [place], [place] | | | | | | [address] | | | | + + + + + + | % Segmented | 78.64Comment: Testing | % | EXTERNAL | | | | performed at [facility], [address] | | LAB | | | Neutrophils | [address], | | | | | | [place], [place] [address] | | | | + + + + + + | % | 12.75Comment: Testing | % | EXTERNAL | | | Lymphocytes | performed at [facility], [address] | | LAB | | | | [address], | | | | | | [place], [place] [address] | | | | + + + + + + | % Monocytes | 8.49Comment: Testing | % | EXTERNAL | | | | performed at [facility], [address] | | LAB | | | | [address], | | | | | | [place] [address] | | | | + + + + + + | % | 0.04Comment: Testing | % | EXTERNAL | | | Eosinophils | performed at [facility], [address] | | LAB | | | | [address], | | | | | | [place] [address] | | | | + + + + + + | % Basophils | 0.08Comment: Testing | % | EXTERNAL | | | | performed at [facility], [address] | | LAB | | | | [place], | | | | | | [place] [address] | | | | + + + + + + | Absolute | 11.34 (H)Comment: | 1.90 - 7.40 | EXTERNAL | | | Segmented | Testing performed at | K/uL | LAB | | | Neutrophils | [facility], [address] | | | | | | [place] | | | | | | [address] | | | | + + + + + + | Absolute | 1.84Comment: Testing | 1.00 - 3.90 | EXTERNAL | | | Lymphocytes | performed at [facility], [address] | K/uL | LAB | | | | [place], | | | | | | [place] [address] | | | | + + + + + + | Absolute | 1.22 (H)Comment: Testing | 0.00 - 0.80 | EXTERNAL | | | Monocytes | performed at [facility], [address] | K/[address]L | LAB | | | | [address], | | | | | | [place] [address] | | | | + + + + + + | Absolute | 0.01Comment: Testing | 0.00 - 0.50 | EXTERNAL | | | Eosinophils | performed at [facility], [address] | K/uL | LAB | | | | [address], | | | | | | [place] [address] | | | | + + + + + + | Absolute | 0.01Comment: Testing | 0.00 - 0.10 | EXTERNAL | | | Basophils | performed at [facility], [address] | K/uL | LAB | | | | [address], | | | | | | [place] [address] | | | | + + + + + + + + | Specimen | + + | Blood specimen | | (specimen) | + + + +---------+ + + | Performing | Address | City/State/Zipcode | Phone Number | | Organization | | | | + +---------+ + + | EXTERNAL LAB | | | | + +---------+ + + Phosphorus (05/07/2016 4:21 AM PST) + + + + + + | Component | Value | Ref Range | Performed | Pathologist | | | | | At | Signature | + + + + + + | PHOSPHORUS | 4.1Comment: Testing | 2.3 - 4.8 mg/dL | EXTERNAL | | | | performed at [facility], [address] | | LAB | | | | [place] [address], | | | | | | [place] [address] | | | | + + + + + + + + | Specimen | + + | Blood specimen | | (specimen) | + + + +---------+ + + | Performing | Address | City/State/Zipcode | Phone Number | | Organization | | | | + +---------+ + + | EXTERNAL LAB | | | | + +---------+ + + Magnesium (05/07/2016 4:21 AM PST) + + + + + + | Component | Value | Ref Range | Performed | Pathologist | | | | | At | Signature | + + + + + + | Magnesium | 2.3Comment: Testing | 1.7 - 2.4 mg/dL | EXTERNAL | | | | performed at [facility], [address] | | LAB | | | | [place], | | | | | | [place] [address] | | | | + + + + + + + + | Specimen | + + | Blood specimen | | (specimen) | + + + +---------+ + + | Performing | Address | City/State/Zipcode | Phone Number | | Organization | | | | + +---------+ + + | EXTERNAL LAB | | | | + +---------+ + + Basic Metabolic Panel (05/07/2016 4:21 AM PST) + + + + + + | Component | Value | Ref Range | Performed | Pathologist | | | | | At | Signature | + + + + + + | Na | 139Comment: Testing | 135 - 145 | EXTERNAL | | | | performed at [facility], [address] | mmol/L | LAB | | | | [place], | | | | | | [place] [address] | | | | + + + + + + | K | 3.9Comment: Testing | 3.5 - 4.9 | EXTERNAL | | | | performed at [facility], [address] | mmol/L | LAB | | | | [address], | | | | | | [place] [address] | | | | + + + + + + | Cl | 103Comment: Testing | 99 - 109 mmol/L | EXTERNAL | | | | performed at [facility], [address] | | LAB | | | | [address], | | | | | | [place] [address] | | | | + + + + + + | CO2 | 23Comment: Testing | 23 - 32 mmol/L | EXTERNAL | | | | performed at [facility], [address] | | LAB | | | | [address], | | | | | | [place] [address] | | | | + + + + + + | Anion Gap | 17Comment: Testing | 5 - 20 mmol/L | EXTERNAL | | | | performed at [facility], [address] | | LAB | | | | [address], | | | | | | [place] [address] | | | | + + + + + + | Glucose, | 107 (H)Comment: Testing | 65 - 99 mg/dL | EXTERNAL | | | Fasting | performed at [facility], [address] | | LAB | | | | [address], | | | | | | [place] [address] | | | | + + + + + + | BUN | 12Comment: Testing | 8 - 25 mg/dL | EXTERNAL | | | | performed at [facility], [address] | | LAB | | | | [address], | | | | | | [place] [address] | | | | + + + + + + | Creatinine | 0.7Comment: Testing | 0.70 - 1.30 | EXTERNAL | | | | performed at [facility], [address] | mg/dL | LAB | | | | [address], | | | | | | [place] [address] | | | | + + + + + + | BUN/Creatin | 17Comment: Testing | | EXTERNAL | | | ine Ratio | performed at [facility], [address] | | LAB | | | | [address], | | | | | | [place] [address] | | | | + + + + + + | Calcium | 9.0Comment: Testing | 8.5 - 10.5 | EXTERNAL | | | | performed at [facility], [address] | mg/dL | LAB | | | | [address], | | | | | | [place] [address] | | | | + + + + + + | Estimated | >60Comment: GFR <60: | mL/min/1.73m2 | EXTERNAL | | | GFR | CHRONIC KIDNEY DISEASE, | | LAB | | | | IF FOUND OVER A 3 MONTH | | | | | | PERIOD.GFR <15: KIDNEY | | | | | | FAILURE.FOR | | | | | | AMERICANS, MULTIPLY THE | | | | | | CALCULATED GFR BY | | | | | | 1.210.Testing performed | | | | | | at [facility], [address] | | | | | | [address], | | | | | | [place] [address] | | | | + + + + + + + + | Specimen | + + | Blood specimen | | (specimen) | + + + +---------+ + + | Performing | Address | City/State/Zipcode | Phone Number | | Organization | | | | + +---------+ + + | EXTERNAL LAB | | | | + +---------+ + + documented in this encounter Visit Diagnoses + + | Diagnosis | + + | Convulsions, unspecified convulsion type (HCC) | + + documented in this encounter
--- OUTSIDE RECORDS SUMMARY | ~2019-05-31 | XMS | Encounter Summary ---
Demographics + + + | Address | [address] | | | [place] [address] | + + + | Home Phone | | + + + | Preferred Language | Unknown | + + + | Marital Status | Single | + + + | Uatsdin Affiliation | 1041 | + + + | Race | Unknown | + + + | Ethnic Group | Unknown | + + + Author + + + | Author | [facility] | | | and [place] | + + + | Organization | [facility] | | | and [place] | + + + | Address | Unknown | + + + | Phone | Unavailable | + + + Care Team Providers + +------+ + | Care Front Line Supervisor Name | Role | Phone | + +------+ + | Johnny Schultz DO | TINA | | + +------+ + Encounter Details +--------+ + + + + | Date | Type | Department | Care Team | Description | +--------+ + + + + | 06/21/ | Orders Only | [facility] | Conversion | | | 2016 | | INFECTIOUS DISEASE | Transaction, | | | | | [address] [facility] | Provider Unknown | | | | | [place], [place] | [phone] | | | | | [address] | | | | | | [phone] | | | +--------+ + + + [...] | + +--------+ + + + | HEPATIC FUNCTION | Routin | 06/21/2016 | | Results for this | | PANEL | e | 12:00 AM | | procedure are in the | | | | PST | | results section. | + +--------+ + + + documented in this encounter Results Hepatic Function Panel (06/21/2016 12:00 AM PST) + +---------+ + + + | Component | Value | Ref Range | Performed | Pathologist | | | | | At | Signature | + +---------+ + + + | Protein, | 5.9 (A) | 6.0 - 8.0 g/dL | EXTERNAL | | | Total | | | LAB | | + +---------+ + + + | Albumin | 4.2 | | EXTERNAL | | | | | | LAB | | + +---------+ + + + | Bilirubin | 0.4 | mg/dL | EXTERNAL | | | Total | | | LAB | | + +---------+ + + + | Bilirubin | 0.1 | mg/dL | EXTERNAL | | | Direct | | | LAB | | + +---------+ + + + | ALP, | 55 | | EXTERNAL | | | External | | | LAB | | + +---------+ + + + | AST | 44 (A) | 13 - 39 U/L | EXTERNAL | | | | | | LAB | | + +---------+ + + + | ALT | 35 | U/L | EXTERNAL | | | | | | LAB | | + +---------+ + + + | A/G Ratio | 2.5 (A) | 1.1 - 2.4 | EXTERNAL | | | | | | LAB | | + +---------+ + + + | Globulin, | 1.7 (A) | 1.8 - 3.5 | EXTERNAL | | | Total | | | LAB | | + +---------+ + + + + + | Specimen | + + | Blood specimen | | (specimen) | + + + +---------+ + + | Performing | Address | City/State/Zipcode | Phone Number | | Organization | | | | + +---------+ + + | EXTERNAL LAB | | | | + +---------+ + + documented in this encounter Visit Diagnoses Not on filedocumented in this encounter"
--- OUTSIDE RECORDS SUMMARY | ~2019-05-31 | XMS | Clinical Summary ---
Demographics + + + | Address | [address] | | | [place] [address] | + + + | Home Phone | | + + + | Preferred Language | Unknown | + + + | Marital Status | Single | + + + | Temple Affiliation | 1041 | + + + | Race | Unknown | + + + | Ethnic Group | Unknown | + + + Author + + + | Author | [facility] (Historical as of | | | 01-12-19) | + + + | Organization | [facility] (Historical as of | | | 01-12-19) [...] Team Providers + +------+ + | Care Propulsion Motor And Generator Repairer Name | Role | Phone | + [...] | | | Activ | | (DRISDOL) [id number] | mouth twice a week. | | [...] +------+-------+ + | MEDICAID | [place] | [id number] | | | [address] | | | N | | | | [place], [place] | | | [place] | | | | [phone] | | | ASW SPECIALIST | | | | | + +--------+ [...] | 1995 | [phone] | [place] [address] | | | camila | | | [phone] | | + +--------+ +--------+ + +
--- OUTSIDE RECORDS SUMMARY | ~2019-05-31 | XMS | Clinical Summary ---
Demographics + + + | Address | [address] | | | [place] [address] | + + + | Home Phone | | + + + | Preferred Language | Unknown | + + + | Marital Status | Single | + + + | Orthodoxy Affiliation | 1041 | + + + | Race | Unknown | + + + | Ethnic Group | Unknown | + + + Author + + + | Author | [facility] | | | and [place] | + + + | Organization | [facility] | | | and [place] | + + + | Address | Unknown | + + + | Phone | Unavailable | + + + Care Team Providers + +------+ + | Care Water Plumber Name | Role | Phone | + +------+ + | Johnny Schultz DO | TINA | | + +------+ + Allergies Not on File Medications Not on file Active Problems Not on file Family History + + +------+ + | Medical History | Relation | Name | Comments | + + +------+ + | [place]o Pinto's chorea | Mother | | | + [...]
--- OUTSIDE RECORDS SUMMARY | ~2019-05-31 | XMS | Encounter Summary ---
Demographics + + + | Address | [address] | | | [place] [address] | + + + | Home Phone | | + + + | Preferred Language | Unknown | + + + | Marital Status | Single | + + + | Bahai Affiliation | 1041 | + + + | Race | Unknown | + + + | Ethnic Group | Unknown | + + + Author + + + | Author | [facility] | | | and [place] | + + + | Organization | [facility] | | | and [place] | + + + | Address | Unknown | + + + | Phone | Unavailable | + + + Care Team Providers + +------+ + | Care Chip Tuner Name | Role | Phone | + +------+ + PCP | Unavailable | + +------+ + Encounter Details +--------+ + + + + | Date | Type | Department | Care Team | Description | +--------+ + + + + | 05/06/ | Hospital | [facility] | Conversion | Diagnosis unknown | | 2016 | Encounter | CONVERSION [address] | Transaction, | | | | | [address] | Provider Unknown | | | | | [place] | [phone] | | | | | [address] | | | | | | [phone] | | | +--------+ + + + [...]
--- OUTSIDE RECORDS SUMMARY | ~2019-05-31 | XMS | Encounter Summary ---
Demographics + + + | Address | [address] | | | [place] [address] | + + + | Home Phone | | + + + | Preferred Language | Unknown | + + + | Marital Status | Single | + + + | Mu-Ism Affiliation | 1041 | + + + | Race | Unknown | + + + | Ethnic Group | Unknown | + + + Author + + + | Author | [facility] | | | and [place] | + + + | Organization | [facility] | | | and [place] | + + + | Address | Unknown | + + + | Phone | Unavailable | + + + Care Team Providers + +------+ + | Care Scroll Saw Operator Name | Role | Phone | + +------+ + | Johnny Schultz DO | TINA | | + +------+ + Encounter Details +--------+ + + + + | Date | Type | Department | Care Team | Description | +--------+ + + + + | 06/21/ | Orders Only | [facility] | Conversion | | | 2016 | | INFECTIOUS DISEASE | Transaction, | | | | | [address] [facility] | Provider Unknown | | | | | [place], [place] | [phone] | | | | | [address] | | | | | | [phone] | | | +--------+ + + + [...]
--- OUTSIDE RECORDS SUMMARY | ~2019-05-31 | XMS | Encounter Summary ---
Demographics + + + | Address | [address] | | | [place] [address] | + + + | Home Phone | | + + + | Preferred Language | Unknown | + + + | Marital Status | Single | + + + | Worship Affiliation | 1041 | + + + | Race | Unknown | + + + | Ethnic Group | Unknown | + + + Author + + + | Author | [facility] | | | and Anastacioana | + + + | Organization | [facility] | | | and Anastacioana | + + + | Address | Unknown | + + + | Phone | Unavailable | + + + Care Team Providers + +------+ + | Care Superintendent Stevedoring Name | Role | Phone | + +------+ + PCP | Unavailable | + +------+ + Encounter Details +--------+ + + + + | Date | Type | Department | Care Team | Description | +--------+ + + + + | 05/06/ | Hospital | [facility] | Grace Luna MD | Convulsions, | | 2016 - | Encounter | [facility] | [address] | unspecified | | | | CARE FLOOR [address] | [place] [address] | convulsion type | | 05/22/ | | [address] | [phone] | ([facility]) | | 2016 | | [place], [place] | | | | | | [address] | | | | | | [phone] | | | +--------+ + + + [...] 05/22/16826 Date of Service: 05/22/16812 Status: Signed General Accountant: Katlyn Arango MD (Physician) Patient: Feliciano Leggett [...] soft BS+ no tenderness EXt no edwema PIPE WELDER alert no focality sensation grossly intact psy [...] Information: Follow up: Michelle López MD [address] [facility] [address] On 05/23/2016 Johnny Schultz, [address] [place] [id number] Medication List START taking these medications acyclovir [...] Refills: 0 Commonly known as: CATAPRES ergocalciferol 74855 UNITS capsule Refills: 0 Commonly known as: [...] tablet Refills: 0 Commonly known as: NAPROSYN pxsgzktj-zswbxhjnjz-cemfbscgb ophthalmic ointment Refills: 0 Commonly known as: [...] & FLU 10-5-325 MG/15ML Liqd Generic drug: TJ-Brlpfymlmrchm-Wviqpfrpmpczi Where to Get Your Medications You can get these medications from any pharmacy Bring a paper prescription for each of these medications - acyclovir 500 MG IVPB - divalproex 500 MG EC tablet - metoprolol 25 MG tablet - phenytoin 200 MG ER capsule Disposition: intermediate frame tender care facility Condition: Stable Code Status: Full [...] 1439 Date of Service: 05/22/168 Status: Signed General Accountant: Gifty Childs RN (Registered Nurse) Pt 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 All discharge information faxed to [facility] and also sent with pt. Iv removed. Gifty Childs RN onver ellen Transaction, Provider Unknown - 05/22/2016 3:40 AM PST Progress Notes by Maggy Cline RN at 05/22/16 0340 Author: Maggy Cline RN Service: (none) Author Type: Registered Nurse Filed: 05/22/16 0514 Date of Service: 05/22/16339 Status: Signed General Accountant: Maggy Cline RN (Registered Nurse) Patient is [...] Engel RN at 05/21/16 1232 Author: Aura Egnel RN Service: (none) Author Type: Registered Nurse Filed: 05/21/16 5530 Date of Service: 05/21/16 1232 Status: Signed General Accountant: Aura Engel RN (Registered Nurse) VSS, HR [...] 1231 Date of Service: 05/21/16947 Status: Signed General Accountant: Aura Engel RN (Registered Nurse) Spoke to [...] 0956 Date of Service: 05/21/1643 Status: Signed General Accountant: Eir Garcia RN (Registered Nurse) [facility] Juhi [phone]. They will be sending chantel eone tomorrow [...] 0845 Date of Service: 05/21/16836 Status: Signed General Accountant: Katlyn Arango MD (Physician) [facility] Service: Hospitalist Progress Note Pt: Feliciano Leggett AGE/SEX: 20 y.o. male : 1995 ROOM: [address] [place] [address] REQUESTING PROVIDER: Katlyn Arango MD TODAY'S DATE: [...] go home Scheduled Medications acyclovir 10 mg/kg (Norden) Intravenous Q8H buPROPion 300 mg Oral QAM [...] soft BS+ no tenderness EXt no edwema PIPE WELDER alert no focality sensation grossly intact psy [...] hours. No results for input(s): PHART, PO2ART, IOK3QYX, W4ZPNMLT, BEART in the last 168 hours. No [...] 05/21/16440 Date of Service: 05/21/16437 Status: Signed General Accountant: Tory Nieto RN (Registered Nurse) VSS except [...] Notes by Aura Engel RN at 05/20/16 6239 Author: Aura Engel RN Service: (none) Author Type: Registered Nurse Filed: 05/20/16 8163 Date of Service: 05/20/161627 Status: Signed General Accountant: Aura Engel RN (Registered Nurse) Pt HR [...] Date of Service: 05/20/16 1135 Status: Signed General Accountant: Carisa Kidd RD (Registered Dietitian) 05/20/16 1108 Subjective Timepoint Follow up (L risk) Pt [...] Date of Service: 05/20/16 0742 Status: Addendum General Accountant: Katlyn Arango MD (Physician) Related Notes: Original Note by Katlyn Arango MD (Physician) filed at 05/20/16 0802 [facility] Service: Hospitalist Progress Note Pt: Feliciano Leggett AGE/SEX: 20 y.o. male : 1995 ROOM: [address] [place] [address] REQUESTING PROVIDER: Katlyn Arango MD TODAY'S DATE: [...] or SOB Scheduled Medications acyclovir 10 mg/kg (Norden) Intravenous Q8H buPROPion 300 mg Oral QAM [...] soft BS+ no tenderness EXt no edema PIPE WELDER alert no focality sesnstion grossly intact LABS: [...] hours. No results for input(s): PHART, PO2ART, BSB4IPY, Z6FPRIPJ, BEART in the last 168 hours. No [...] 05/20/16635 Date of Service: 05/20/16614 Status: Signed General Accountant: Candida Kumar RN (Registered Nurse) Pt vss [...] 05/19/161857 Date of Service: 05/19/161855 Status: Signed General Accountant: Francesco Ivy RN (Registered Nurse) Pt AMB in halls today. RN escorted Pt to [facility]. IV replaced after IV infiltrated. Pt [...] Date of Service: 05/19/16 0914 Status: Signed General Accountant: Floyd Skelton MD (Physician) [facility] Service: Hospitalist Progress Note Hospital Day: LOS: [...] events overnight. Scheduled Medications acyclovir 10 mg/kg (Norden) Intravenous Q8H buPROPion 300 mg Oral QAM [...] Notes by Ema Baldwin MD at 05/19/16 6079 Author: Ema Baldwin MD Service: Infectious Disease Author Type: Physician Filed: 05/19/16 1124 Date of Service: 05/19/16 3840 Status: Signed General Accountant: Ema Baldwin MD (Physician) Infectious Diseases Progress Note [facility] Today's Date: 05/19/2016 Admission Date: 05/06/2016 Reason [...] he was brought in to a local [facility] with headache, nausea, vomiting, i nappropriate activity. He had seizure-like activity at his facility, where he was describe d to have become cyanotic and had tonic-clonic movements of his arms and legs. At the outs [facility], he had two tonic-clonic seizure episodes that lasted for 30 seconds to 1 minut e twenty minutes apart. He bit his tongue during the seizure-like episodes. He was treat ed with fosphenytoin and Ativan. CT scan reportedly was unremarkable. He had no reported f ever; he had mild leukocytosis. He was transferred to [facility] for further care. Brain MRI without contrast [...] Cr of 0.6). Medications acyclovir 10 mg/kg (Norden) Intravenous Q8H buPROPion 300 mg Oral QAM [...] from the original. Nurse Progress Note by Francesco Ivy RN at 05/18/161845 Author: Francesco Ivy RN Service: (none) Author Type: Registered Nurse Filed: 05/18/161849 Date of Service: 05/18/161845 Status: Signed General Accountant: Francesco Ivy RN (Registered Nurse) Pt threatened [...] Note by Francesco Ivy RN at 05/18/16 8911 Author: Francesco Ivy RN Service: (none) Author Type: Registered Nurse Filed: 05/18/161755 Date of Service: 05/18/161750 Status: Signed General Accountant: Francesco Ivy RN (Registered Nurse) VSS and [...] Service: Hospitalist Author Type: Physician Filed: 05/18/16 0510 Date of Service: 05/18/161105 Status: Addendum General Accountant: Floyd Skelton MD (Physician) Related Notes: Original Note by Floyd Skelton MD (Physician) filed at 05/18/16 2143 [facility] Service: Hospitalist Progress Note Hospital Day: LOS: [...] events overnight. Scheduled Medications acyclovir 10 mg/kg (Norden) Intravenous Q8H buPROPion 300 mg Oral QAM [...] than expected for a 20-year-old male w the [facility] may be related to the history of [...] 05/18/16627 Date of Service: 05/18/16321 Status: Signed General Accountant: Sofya Diaz RN (Registered Nurse) Pt alert [...] Date of Service: 12/20/16 1813 Status: Signed General Accountant: Francesco Ivy RN (Registered Nurse) IV restarted [...] Date of Service: 05/17/16 1257 Status: Signed General Accountant: Lucy Garcia RN (Registered Nurse) Per rounding: Patient will be here until the discharge date of 05-23-16. Floyd Rain MD - 05/17/2016 11:35 AM PSTFormatting of this note might be different from the origi nal. Progress Notes by Floyd Skelton MD at 05/17/16 1135 Author: Floyd Skelton MD Service: Hospitalist Author Type: Physician Filed: 05/17/16 1340 Date of Service: 05/17/16 1135 Status: Signed General Accountant: Floyd Skelton MD (Physician) [facility] Service: Hospitalist Progress Note Hospital Day: LOS: [...] sitter,stable VS. Scheduled Medications acyclovir 10 mg/kg (Norden) Intravenous Q8H buPROPion 300 mg Oral QAM [...] than expected for a 20-year-old male w the [facility] may be related to the history of [...] 05/17/1632 Date of Service: 05/17/16523 Status: Signed General Accountant: Sofya Diaz RN (Registered Nurse) A&O x4, [...] 05/16/161817 Date of Service: 05/16/161816 Status: Signed General Accountant: Lucy Zuleta RN (Registered Nurse) Patient resting [...] 1320 Date of Service: 05/16/161148 Status: Signed General Accountant: Floyd Skelton MD (Physician) [facility] Service: Hospitalist Progress Note Hospital Day: LOS: [...] events overnight. Scheduled Medications acyclovir 10 mg/kg (Norden) Intravenous Q8H buPROPion 300 mg Oral QAM [...] Management by Grant Ambrocio RN at 05/16/16 1341 Author: Grant Ambrocio RN Service: (none) Author Type: Registered Nurse Filed: 05/16/16 0372 Date of Service: 05/16/162 Status: Signed General Accountant: Grant Ambrocio RN (Registered Nurse) Discharge planning: [...] Note by Yaima Lane RN at 05/16/16 9784 Author: Yaima Lane RN Service: (none) Author Type: Registered Nurse Filed: 05/16/16907 Date of Service: 05/16/16815 Status: Addendum General Accountant: Yaima Lane RN (Registered Nurse) Related Notes: [...] 05/16/16601 Date of Service: 05/16/16550 Status: Signed General Accountant: Beena Rice RN (Registered Nurse) PICC dressing [...] 05/16/1644 Date of Service: 05/16/16542 Status: Signed General Accountant: Lori Blue RN (Registered Nurse) Pt VSS, [...] Date of Service: 05/15/16 1620 Status: Signed General Accountant: Laura Monge RN (Registered Nurse) Per pt caregiver, [employer] cannot give pt IV acyclovir. LAURA MONGE RN Floyd Rain MD - 05/15/2016 12:14 PM PSTFormatting of this note might be different from the origi nal. Progress Notes by Floyd Skelton MD at 05/15/16 1214 Author: Floyd Skelton MD Service: Hospitalist Author Type: Physician Filed: 05/15/161819 Date of Service: 05/15/164 Status: Signed General Accountant: Floyd Skelton MD (Physician) [facility] Service: Hospitalist Progress Note Hospital Day: LOS: [...] all questions. Scheduled Medications acyclovir 10 mg/kg (Norden) Intravenous Q8H buPROPion 300 mg Oral QAM [...] than expected for a 20[facility] may be related to the history [...] 1004 Date of Service: 05/15/16954 Status: Signed General Accountant: Sheri Duval PT (Physical Therapist) 05/15/16 0955 [...] Date of Service: 05/15/16 09 Status: Signed General Accountant: Sheri Duval PT (Physical Therapist) 05/14/16 1442 [...] 05/15/169 Date of Service: 05/15/16443 Status: Signed General Accountant: Lori Blue RN (Registered Nurse) Pt alert & oriented x4, VSS. PRN albuterol given x1 per pt request. No acute changes on nig hts. Sitter at bedside. Lori Blue RN onver ellen Transaction, Provider Unknown - 05/14/2016 6:39 PM PST Nurse Progress Note by Laura Monge RN at 05/14/16 183 Author: Laura oMnge RN Service: (none) Author Type: Registered Nurse Filed: 05/14/16 184 Date of Service: 05/14/161838 Status: Signed General Accountant: Laura Monge RN (Registered Nurse) Pt alert [...] 1221 Date of Service: 05/14/168 Status: Signed General Accountant: Laura Monge RN (Registered Nurse) Pt's caregiver [...] 05/14/16938 Date of Service: 05/14/16936 Status: Signed General Accountant: Jorge Alberto Sharp MD (Physician) [facility] Service: Hospitalist Progress Note Hospital Day: LOS: [...] 3 cups of jello. Asking for his hot metal charger for ipad and perseverates. Scheduled Medications acyclovir 10 mg/kg (Norden) Intravenous Q8H buPROPion 300 mg Oral QAM [...] ac yclovir Disposition: Code Status: Full Code Jroge Alberto Sharp MD 05/14/2016 onversion Transactio n, Provider Unknown - 05/14/2016 6:32 AM PST Progress Notes by Beena Rice RN at 05/14/16631 Author: Beena Rice RN Service: (none) Author Type: Registered Nurse Filed: 05/14/16633 Date of Service: 05/14/16631 Status: Signed General Accountant: Beena Rice RN (Registered Nurse) Patient alert and oriented. Vital signs stable. Patient sitter remains at bedside. Medicate d for pain X 1. See MAR. No acute changes. Visualized hourly. Will continue to monitor. Roman Rice onver ellen Transaction, Provider Unknown - 05/13/2016 5:20 PM PST Nurse Progress Note by Hardeep Keller RN at 05/13/161719 Author: Hardeep Keller RN Service: (none) Author Type: Registered Nurse Filed: 05/13/161899 Date of Service: 05/13/161719 Status: Signed General Accountant: Hardeep Keller RN (Registered Nurse) Pt A&O [...] 1531 Date of Service: 05/13/161499 Status: Signed General Accountant: Pau Ruano PT (Physical Therapist) 05/13/16 1500 PT Last Visit PT Received On 05/13/16 Reason for Treatment Deconditioning Requires PT Follow Up PT tech Assistance Required 1 person Cup Trimming Machine Operator Needed No Precautions Other Precautions fall precautions [...] Tejada RN at 05/13/16 1155 Author: Ever Tejdaa RN Service: (none) Author Type: Registered Nurse Filed: 05/13/16 1156 Date of Service: 05/13/16 1155 Status: Signed General Accountant: Ever Tejada RN (Registered Nurse) Patient discussed [...] Date of Service: 05/13/16 104 Status: Signed General Accountant: Lissa Oliva RD (Registered Dietitian) 05/13/16 0938 [...] Date of Service: 05/13/16 1023 Status: Signed General Accountant: Jorge Alberto Sharp MD (Physician) [facility] Service: Hospitalist Progress Note Hospital Day: LOS: [...] with walker. Scheduled Medications acyclovir 10 mg/kg (Norden) Intravenous Q8H buPROPion 300 mg Oral QAM [...] 1106 Date of Service: 05/13/16700 Status: Signed General Accountant: Michelle López MD (Physician) [facility] Service: Infectious Disease Progress Note Hospital Day: [...] he was brought in to a local [facility] with headache, nausea, vomiting, i nappropriate activity. He had seizure-like activity at his facility, where he was described to have become cyanotic and had tonic-clonic movements of his arms and legs. At the [facility], he had two tonic-clonic seizure episodes that lasted for 30 seconds to 1 minute twenty minutes apart. He bit his tongue during the seizure-like episodes. He was treated w ith fosphenytoin and Ativan. CT scan reportedly was unremarkable. He had no reported fever; he had mild leukocytosis. He was transferred to [facility] for further care. Brain MRI without contrast [...] medical staff. Scheduled Medications acyclovir 10 mg/kg (Norden) Intravenous Q8H buPROPion 300 mg Oral QAM [...] of long-term seizure disorder. brain without contrast [[id number]] Impression 1. Brain is negative for acute pathology. 2. No abnormal enhancement noted. 3. Normal CT angiogram of the head without evidence of stenosis, occlusion, or aneurysm in the cerebral arteries. 4. Nonspecific mild to moderate supratentorial volume loss. head W WO IV contrast [[id number]] PROBLEM LIST Principal Problem: Encephalitis due to [...] 05/22 for 14 days. PICC p laced. crop or grain farmworker consulted for IV antibiotic therapy as an [...] Note by Hardeep Keller RN at 05/12/16 1671 Author: Hardeep Keller RN Service: (none) Author Type: Registered Nurse Filed: 05/12/16 3437 Date of Service: 05/12/16 281 Status: Signed General Accountant: Hardeep Keller RN (Registered Nurse) Pt A&O [...] Date of Service: 05/12/16 1115 Status: Signed General Accountant: CASANDRA Muniz (Occupational Therapist) 05/12/16 1100 METHOD OF SERVICE OT Screen 8-22 mins Therapy Time 8 Minutes 05/12/16 1100 Precautions Other Precautions fall risk Home Environment Type of Home detention (skilled need) Home Interior Layout Lives on main level with bedroom/bathroom Prior Function Level of [place] Independent with functional mobility;Assist with ADLs;Assist with [...] Eval/Reassessment Date 05/12/16 Assistance Required 1 person Cup Trimming Machine Operator Needed No Family/Caregiver Present No Precautions Other Precautions fall risk Other Comments Comments orders recieved, chart reviewed, pt sleeping. Chart review demonstarates this diony ent lives in assisted living with constant staff supervision, he demonstrates self harming b ehaviors, harming behaviors towards others. Pt admit to [facility] due to onset of seizures . [...] 05/12/16907 Date of Service: 05/12/16906 Status: Signed General Accountant: Ever Tejada RN (Registered Nurse) [facility] said they cannot accept Feliciano. James Esposito MD - 05/12/2016 8:22 AM PST Progress Notes by James Dow MD at 05/12/16821 Author: James Dow MD Service: Hospitalist Author Type: Physician Filed: 05/12/16 1804 Date of Service: 05/12/16821 Status: Signed General Accountant: James Dow MD (Physician) [facility] Service: Hospitalist Progress Note Hospital Day: LOS: 6 days Post-Op Day: * No surgery found * SUBJECTIVE As per dr yeh's note from yesterday: ""Patient Summary: 20-year-old male history of developmental delay, bipolar disorder resident of adult home, no prior history of seizur e disorder, transferred from [facility] due to witnessed tonic-clonic seizures. Patient s tarted on fosphenytoin, since admission no new episodes of seizures noted. Patient lives in an adult facility, patient care indicated that the patient gets at times [...] abdominal pain. Scheduled Medications acyclovir 10 mg/kg (Norden) Intravenous Q8H buPROPion 300 mg Oral QAM [...] Dilantin 500 mg daily - Neurology consultation/Dr. Marerro - Continue seizure precautions 2. History of [...] unable to assist with acyclovir i nfusion, legal document specialist involved for placement/PICC for iv infusion Code Status: Full Code JAMES DOW MD 05/12/2016 Michelle Doherty MD - 05/12/2016 8:22 AM PST . Progress Notes by Michelle López MD at 05/12/16 0822 Author: Michelle López MD Service: Infectious Disease Author Type: Physician Filed: 05/12/16 0917 Date of Service: 05/12/16821 Status: Signed General Accountant: Michelle López MD (Physician) [facility] Service: Infectious Disease Progress Note Hospital Day: [...] he was brought in to a local [facility] with headache, nausea, vomiting, i nappropriate activity. He had seizure-like activity at his facility, where he was described to have become cyanotic and had tonic-clonic movements of his arms and legs. At the [facility], he had two tonic-clonic seizure episodes that lasted for 30 seconds to 1 minute twenty minutes apart. He bit his tongue during the seizure-like episodes. He was treated w ith fosphenytoin and Ativan. CT scan reportedly was unremarkable. He had no reported fever; he had mild leukocytosis. He was transferred to [facility] for further care. Brain MRI without contrast [...] efforts ongoing. Scheduled Medications acyclovir 10 mg/kg (Norden) Intravenous Q8H buPROPion 300 mg Oral QAM [...] of long-term seizure disorder. brain without contrast [[id number]] Impression 1. Brain is negative for acute pathology. 2. No abnormal enhancement noted. 3. Normal CT angiogram of the head without evidence of stenosis, occlusion, or aneurysm in the cerebral arteries. 4. Nonspecific mild to moderate supratentorial volume loss. head W WO IV contrast [[id number]] PROBLEM LIST Principal Problem: Encephalitis due to [...] 05/22 for 14 days. PICC p laced. crop or grain farmworker consulted for IV antibiotic therapy as an [...] and nursing staff Code Status: Full Code MICHELLE LÓPEZ MD 05/12/2016 onversion Finn saction, Provider Unknown - 05/12/2016 6:05 AM PSTFormatting of this note might be differen t from the original. Nurse Progress Note by Maria A Maloney RN at 05/12/16604 Author: Maria A Maloney RN Service: (none) Author Type: Registered Nurse Filed: 05/12/16606 Date of Service: 05/12/16604 Status: Signed General Accountant: Maria A Maloney RN (Registered Nurse) Patient [...] 05/11/161843 Date of Service: 05/11/161842 Status: Signed General Accountant: Candida Jang RN (Registered Nurse) PICC line [...] Bibiana Gonzalez PTA Service: (none) Author Type: Press Offbearer Filed: 05/11/16 9005 Date of Service: 05/11/16 1445 Status: Signed General Accountant: Bibiana Gonzalez PTA (Press Offbearer) 05/11/16 3559 PT Last Visit PT Received On 05/11/16 Reason for Treatment Deconditioning Requires PT Follow Up Yes Follow up PT Only? No Assistance Required 1 person Cup Trimming Machine Operator Needed No Precautions Other Precautions fall risk [...] Management by Ever Tejada RN at 05/11/16 8278 Author: Ever Tejada RN Service: (none) Author Type: Registered Nurse Filed: 05/11/16 6244 Date of Service: 05/11/16 1050 Status: Addendum General Accountant: Ever W Hair, RN (Registered Nurse) Related Notes: Original Note by Ever Tejada RN (Registered Nurse) filed at 05/11/16 13 40 Patient has been declined by [facility] in [place] and [facility] in [place]. I spoke melissa kay Cedillo at [facility] and she agreed to have me send referrals to all facilites in [facility]. I sent to [facility], [facility], [facility], [facility] and [facility]. Feliciano has been declined by [facility], [facility] and [facility]. I sent a referral to [facility] [phone]. Michelle Guevara MD - 05/11/2016 9:14 AM PST Progress Notes by Michelle López MD at 05/11/16913 Author: Michelle López MD Service: Infectious Disease Author Type: Physician Filed: 05/11/16916 Date of Service: 05/11/16913 Status: Signed General Accountant: Michelle López MD (Physician) [facility] Service: Infectious Disease Progress Note Hospital Day: [...] of his arms and legs. At the [facility], he had two tonic-clonic seizure episodes that lasted for 30 seconds to 1 minute twenty minutes apart. He bit his tongue during the seizure-like episodes. He was treated w ith fosphenytoin and Ativan. CT scan reportedly was unremarkable. He had no reported fever; he had mild leukocytosis. He was transferred to [facility] for further care. Brain MRI without contrast [...] skin rash. Scheduled Medications acyclovir 10 mg/kg (Norden) Intravenous Q8H buPROPion 300 mg Oral QAM [...] of long-term seizure disorder. brain without contrast [[id number]] Impression 1. Brain is negative for acute pathology. 2. No abnormal enhancement noted. 3. Normal CT angiogram of the head without evidence of stenosis, occlusion, or aneurysm in the cerebral arteries. 4. Nonspecific mild to moderate supratentorial volume loss. head W WO IV contrast [[id number]] PROBLEM LIST Principal Problem: Encephalitis due to [...] was cautioned not to pull on it. crop or grain farmworker consulted for IV antibiotic therapy as an [...] 0919 Date of Service: 05/11/16903 Status: Signed General Accountant: Tavon Kelley MD (Physician) [facility] Service: Hospitalist Progress Note Hospital Day: LOS: 5 days Post-Op Day: * No surgery found * SUBJECTIVE Patient Summary: 20-year-old male history of developmental delay, bipolar disorder resident of adult home, no prior history of seizure disorder, transferred from [facility] due to witnessed tonic-clonic seizures. Patient started on fosphenytoin, since admission n o new episodes of seizures noted. Patient lives in an adult facility, patient care indicated t hat the patient gets at [...] hea dache. Scheduled Medications acyclovir 10 mg/kg (Norden) Intravenous Q8H buPROPion 300 mg Oral QAM [...] unable to assist with acyclovir i nfusion, legal document specialist involved for placement/PICC for iv infusion Code Status: Full Code Tavon Kelley MD 05/11/2016 onversion Transact ion, Provider Unknown - 05/11/2016 4:35 AM PSTFormatting of this note might be different fr om the original. Progress Notes by Sofya Diaz RN at 05/11/16 3056 Author: Sofya Diaz RN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 HEMOLYZEDTesting | | | | | | performed at [facility], [address] | | | | | | [address], | | | | | | [place] [address] | | | | + + + + + + | ALP, | 53Comment: Testing | 35 - 115 U/L | EXTERNAL | | | External | performed at [facility], [address] | | LAB | | | | [address], | | | | | | [place] [address] | | | | + + + + + + | AST | 93 (H)Comment: SPECIMEN | 10 - 45 U/L | EXTERNAL | | | | SLIGHTLY | | LAB | | | | HEMOLYZEDTesting | | | | | | performed at [facility], [address] | | | | | | [address], | | | | | | [place] [address] | | | | + + + + + + | ALT | 101 (H)Comment: SPECIMEN | 10 - 65 U/L | EXTERNAL | | | | SLIGHTLY | | LAB | | | | HEMOLYZEDTesting | | | | | | performed at [facility], [address] | | | | | | [address], | | | | | | [place] [address] | | | | + + + [...] | | | | | | at [facility], [address] | | | | | | [address], | | | | | | [place] [address] | | | | + + + [...] [place] | | | | | | [address] | | | | + + + + + + | HEP B | NON REACTIVEComment: | | EXTERNAL | | | SURFACE | Testing performed at | | LAB | | | ANTIBODY | [facility], [address] [facility] | | | | | | [place] | | | | | | [address] | | | | + + + + + + | Hepatitis B | NON REACTIVEComment: | | EXTERNAL | | | Core Ab | Testing performed at | | LAB | | | Total | [facility], [address] [facility] | | | | | | [place] | | | | | | [address] | | | | + + + [...] | | | | | performed at [facility], [address] | | | | | | [facility] [address], | | | | | | [place] [address] | | | | + + + + + + | HCV Ab | NON REACTIVEComment: | | EXTERNAL | | | | Testing performed at | | LAB | | | | [facility], [address] [place] [address] | | | | | | [place] | | | | | | [address] | | | | + + + [...] at | | | | | | [facility], [address] [place] [address] | | | | | | [place] | | | | | | [address] | | | | + + + [...] EXTERNAL | | | | performed at [facility], [address] | K/uL | LAB | | | | [place], | | | | | | [place] [address] | | | | + + + + + + | RED CELL | 4.28Comment: Testing | 4.20 - 5.70 | EXTERNAL | | | COUNT | performed at [facility], [address] | M/uL | LAB | | | | [place], | | | | | | [place] [address] | | | | + + + + + + | Hgb | 12.3 (L)Comment: Testing | 13.2 - 17.0 | EXTERNAL | | | | performed at [facility], [address] | g/dL | LAB | | | | [address], | | | | | | [place] [address] | | | | + + + + + + | Hematocrit, | 36.6 (L)Comment: Testing | 39.0 - 50.0 % | EXTERNAL | | | POC | performed at [facility], [address] | | LAB | | | | [address], | | | | | | [place] [address] | | | | + + + + + + | MCV | 85.4Comment: Testing | 80.0 - 100.0 fl | EXTERNAL | | | | performed at [facility], [address] | | LAB | | | | [address], | | | | | | [place] [address] | | | | + + + + + + | MCH | 28.7Comment: Testing | 27.0 - 34.0 pg | EXTERNAL | | | | performed at [facility], [address] | | LAB | | | | [address], | | | | | | [place] [address] | | | | + + + + + + | MCHC | 33.6Comment: Testing | 32.0 - 35.5 | EXTERNAL | | | | performed at [facility], [address] | g/dL | LAB | | | | [address], | | | | | | [place] [address] | | | | + + + + + + | RDW-CV | 52.5Comment: Testing | 37 - 53 fl | EXTERNAL | | | | performed at [facility], [address] | | LAB | | | | [address], | | | | | | [place] [address] | | | | + + + + + + | Platelet | 217Comment: Testing | 150 - 400 K/uL | EXTERNAL | | | Count | performed at [facility], [address] | | LAB | | | Plasma | [address], | | | | | | [place] [address] | | | | + + + + + + | MPV | 7.7Comment: Testing | fl | EXTERNAL | | | | performed at [facility], [address] | | LAB | | | | [address], | | | | | | [place] [address] | | | | + + + + + + | Differentia | AUTOMATEDComment: | | EXTERNAL | | | l Type | Testing performed at | | LAB | | | | [facility], [address] | | | | | | [place] | | | | | | [address] | | | | + + + + + + | % Segmented | 55.01Comment: Testing | % | EXTERNAL | | | | performed at [facility], [address] | | LAB | | | Neutrophils | [address], | | | | | | [place] [address] | | | | + + + + + + | % | 22.69Comment: Testing | % | EXTERNAL | | | Lymphocytes | performed at [facility], [address] | | LAB | | | | [address], | | | | | | [place] [address] | | | | + + + + + + | % Monocytes | 19.57Comment: Testing | % | EXTERNAL | | | | performed at [facility], [address] | | LAB | | | | [address], | | | | | | [place] [address] | | | | + + + + + + | % | 2.37Comment: Testing | % | EXTERNAL | | | Eosinophils | performed at [facility], [address] | | LAB | | | | [address], | | | | | | [place] [address] | | | | + + + + + + | % Basophils | 0.36Comment: Testing | % | EXTERNAL | | | | performed at [facility], [address] | | LAB | | | | [address], | | | | | | [place] [address] | | | | + + + + + + | Absolute | 5.32Comment: Testing | 1.90 - 7.40 | EXTERNAL | | | Segmented | performed at [facility], [address] | K/uL | LAB | | | Neutrophils | [address], | | | | | | [place], [place] [address] | | | | + + + + + + | Absolute | 2.20Comment: Testing | 1.00 - 3.90 | EXTERNAL | | | Lymphocytes | performed at [facility], [address] | K/uL | LAB | | | | [address], | | | | | | [place] [address] | | | | + + + + + + | Absolute | 1.89 (H)Comment: Testing | 0.00 - 0.80 | EXTERNAL | | | Monocytes | performed at [facility], [address] | K/uL | LAB | | | | [address], | | | | | | [place] [address] | | | | + + + + + + | Absolute | 0.23Comment: Testing | 0.00 - 0.50 | EXTERNAL | | | Eosinophils | performed at [facility], [address] | K/uL | LAB | | | | [address], | | | | | | [place] [address] | | | | + + + + + + | Absolute | 0.04Comment: Testing | 0.00 - 0.10 | EXTERNAL | | | Basophils | performed at [facility], [address] | K/uL | LAB | | | | [address], | | | | | | [place] [address] | | | | + + + [...] EXTERNAL | | | | performed at [facility], [address] | uIU/mL | LAB | | | | [address], | | | | | | [place] [address] | | | | + + + [...] EXTERNAL | | | | performed at [facility], [address] | | LAB | | | | [address], | | | | | | [place] [address] | | | | + + + [...] EXTERNAL | | | | performed at [facility], [address] | | LAB | | | | [place], | | | | | | [place] [address] | | | | + + + [...] | | Last Dose | performed at [facility];[address] | | LAB | | | | [address];[place] | | | | | | [address] | | | | + + + + + + | Time of | UNKNOWNComment: Testing | | EXTERNAL | | | Last Dose | performed at [facility];[address] | | LAB | | | | [address];[place] | | | | | | [address] | | | | + + + + + + | Valproic | 97Comment: Testing | 50 - 100 ug/mL | EXTERNAL | | | Acid Lvl | performed at [facility];[address] | | LAB | | | | [address];[place] | | | | | | [address] | | | | + + + [...] | | | | | [place] [address] | | | | + + + + + + | K | 4.2Comment: Testing | 3.5 - 4.9 | EXTERNAL | | | | performed at [facility], [address] | mmol/L | LAB | | | | [address], | | | | | | [place] [address] | | | | + + + + + + | Cl | 106Comment: Testing | 99 - 109 mmol/L | EXTERNAL | | | | performed at [facility], [address] | | LAB | | | | [address], | | | | | | [place] [address] | | | | + + + + + + | CO2 | 24Comment: Testing | 23 - 32 mmol/L | EXTERNAL | | | | performed at [facility], [address] | | LAB | | | | [address], | | | | | | [place] [address] | | | | + + + + + + | Anion Gap | 15Comment: Testing | 5 - 20 mmol/L | EXTERNAL | | | | performed at [facility], [address] | | LAB | | | | [address], | | | | | | [place] [address] | | | | + + + + + + | Glucose, | 103 (H)Comment: Testing | 65 - 99 mg/dL | EXTERNAL | | | Fasting | performed at [facility], [address] | | LAB | | | | [address], | | | | | | [place] [address] | | | | + + + + + + | BUN | 6 (L)Comment: Testing | 8 - 25 mg/dL | EXTERNAL | | | | performed at [facility], [address] | | LAB | | | | [address], | | | | | | [place] [address] | | | | + + + + + + | Creatinine | 0.6 (L)Comment: Testing | 0.70 - 1.30 | EXTERNAL | | | | performed at [facility], [address] | mg/dL | LAB | | | | [address], | | | | | | [place] [address] | | | | + + + + + + | BUN/Creatin | 10Comment: Testing | | EXTERNAL | | | ine Ratio | performed at [facility], [address] | | LAB | | | | [address], | | | | | | [place] [address] | | | | + + + + + + | Calcium | 9.0Comment: Testing | 8.5 - 10.5 | EXTERNAL | | | | performed at [facility], [address] | mg/dL | LAB | | | | [address], | | | | | | [place] [address] | | | | + + + + + + | Protein, | 6.2 (L)Comment: Testing | 6.3 - 8.2 g/dL | EXTERNAL | | | Total | performed at [facility], [address] | | LAB | | | | [address], | | | | | | [place] [address] | | | | + + + + + + | Albumin | 3.0 (L)Comment: Testing | 3.6 - 5.0 g/dL | EXTERNAL | | | | performed at [facility], [address] | | LAB | | | | [address], | | | | | | [place] [address] | | | | + + + + + + | Globulin | 3.2Comment: Testing | 1.3 - 4.9 g/dL | EXTERNAL | | | | performed at [facility], [address] | | LAB | | | | [address], | | | | | | [place] [address] | | | | + + + + + + | A/G Ratio | 0.9 (L)Comment: Testing | 1.0 - 2.4 | EXTERNAL | | | | performed at [facility], [address] | | LAB | | | | [address], | | | | | | [place] [address] | | | | + + + + + + | Bilirubin | 0.3Comment: Testing | 0.1 - 1.5 mg/dL | EXTERNAL | | | Total | performed at [facility], [address] | | LAB | | | | [address], | | | | | | [place] [address] | | | | + + + + + + | ALP, | 51Comment: Testing | 35 - 115 U/L | EXTERNAL | | | External | performed at [facility], [address] | | LAB | | | | [address], | | | | | | [place] [address] | | | | + + + + + + | AST | 86 (H)Comment: Testing | 10 - 45 U/L | EXTERNAL | | | | performed at [facility], [address] | | LAB | | | | [address], | | | | | | [place] [address] | | | | + + + + + + | ALT | 105 (H)Comment: Testing | 10 - 65 U/L | EXTERNAL | | | | performed at [facility], [address] | | LAB | | | | [facility], | | | | | | [place] [address] | | | | + + + [...] W | | | | | | [facility], | | | | | | [place] [address] | | | | + + + [...] EXTERNAL | | | | performed at [facility], [address] | K/uL | LAB | | | | [address], | | | | | | [place] [address] | | | | + + + + + + | RED CELL | 4.48Comment: Testing | 4.20 - 5.70 | EXTERNAL | | | COUNT | performed at [facility], [address] | M/uL | LAB | | | | [address], | | | | | | [place] [address] | | | | + + + + + + | Hgb | 13.0 (L)Comment: Testing | 13.2 - 17.0 | EXTERNAL | | | | performed at [facility], [address] | g/dL | LAB | | | | [address], | | | | | | [place] [address] | | | | + + + + + + | Hematocrit, | 38.2 (L)Comment: Testing | 39.0 - 50.0 % | EXTERNAL | | | POC | performed at [facility], [address] | | LAB | | | | [address], | | | | | | [place] [address] | | | | + + + + + + | MCV | 85.4Comment: Testing | 80.0 - 100.0 fl | EXTERNAL | | | | performed at [facility], [address] | | LAB | | | | [place], | | | | | | [place] [address] | | | | + + + + + + | MCH | 29.1Comment: Testing | 27.0 - 34.0 pg | EXTERNAL | | | | performed at [facility], [address] | | LAB | | | | [address], | | | | | | [place] [address] | | | | + + + + + + | MCHC | 34.1Comment: Testing | 32.0 - 35.5 | EXTERNAL | | | | performed at [facility], [address] | g/dL | LAB | | | | [address], | | | | | | [place] [address] | | | | + + + + + + | RDW-CV | 51.6Comment: Testing | 37 - 53 fl | EXTERNAL | | | | performed at [facility], [address] | | LAB | | | | [address], | | | | | | [place] [address] | | | | + + + + + + | Platelet | 231Comment: Testing | 150 - 400 K/uL | EXTERNAL | | | Count | performed at [facility], [address] | | LAB | | | Plasma | [address], | | | | | | [place] [address] | | | | + + + + + + | MPV | 7.4Comment: Testing | fl | EXTERNAL | | | | performed at [facility], [address] | | LAB | | | | [address], | | | | | | [place] [address] | | | | + + + + + + | Differentia | AUTOMATEDComment: | | EXTERNAL | | | l Type | Testing performed at | | LAB | | | | [facility], [address] | | | | | | [place] | | | | | | [address] | | | | + + + + + + | % Segmented | 67.03Comment: Testing | % | EXTERNAL | | | | performed at [facility], [address] | | LAB | | | Neutrophils | [address], | | | | | | [place] [address] | | | | + + + + + + | % | 17.25Comment: Testing | % | EXTERNAL | | | Lymphocytes | performed at [facility], [address] | | LAB | | | | [address], | | | | | | [place] [address] | | | | + + + + + + | % Monocytes | 12.86Comment: Testing | % | EXTERNAL | | | | performed at [facility], [address] | | LAB | | | | [address], | | | | | | [place] [address] | | | | + + + + + + | % | 2.70Comment: Testing | % | EXTERNAL | | | Eosinophils | performed at [facility], [address] | | LAB | | | | [place], | | | | | | [place] [address] | | | | + + + + + + | % Basophils | 0.16Comment: Testing | % | EXTERNAL | | | | performed at [facility], [address] | | LAB | | | | [address], | | | | | | [place] [address] | | | | + + + + + + | Absolute | 6.63Comment: Testing | 1.90 - 7.40 | EXTERNAL | | | Segmented | performed at [facility], [address] | K/uL | LAB | | | Neutrophils | [address], | | | | | | [place] [address] | | | | + + + + + + | Absolute | 1.71Comment: Testing | 1.00 - 3.90 | EXTERNAL | | | Lymphocytes | performed at [facility], [address] | K/uL | LAB | | | | [address], | | | | | | [place] [address] | | | | + + + + + + | Absolute | 1.27 (H)Comment: Testing | 0.00 - 0.80 | EXTERNAL | | | Monocytes | performed at [facility], [address] | K/uL | LAB | | | | [address], | | | | | | [place] [address] | | | | + + + + + + | Absolute | 0.27Comment: Testing | 0.00 - 0.50 | EXTERNAL | | | Eosinophils | performed at [facility], [address] | K/uL | LAB | | | | [address], | | | | | | [place] [address] | | | | + + + + + + | Absolute | 0.02Comment: Testing | 0.00 - 0.10 | EXTERNAL | | | Basophils | performed at [facility], [address] | K/uL | LAB | | | | [address], | | | | | | [place] [address] | | | | + + + [...] EXTERNAL | | | | performed at [facility], [address] | | LAB | | | | [address], | | | | | | [place] [address] | | | | + + + [...] | | | | | [place] [address] | | | | + + + + + + | K | 3.6Comment: Testing | 3.5 - 4.9 | EXTERNAL | | | | performed at [facility], [address] | mmol/L | LAB | | | | [address], | | | | | | [place] [address] | | | | + + + + + + | Cl | 102Comment: Testing | 99 - 109 mmol/L | EXTERNAL | | | | performed at [facility], [address] | | LAB | | | | [address], | | | | | | [place] [address] | | | | + + + + + + | CO2 | 26Comment: Testing | 23 - 32 mmol/L | EXTERNAL | | | | performed at [facility], [address] | | LAB | | | | [address], | | | | | | [place] [address] | | | | + + + + + + | Anion Gap | 16Comment: Testing | 5 - 20 mmol/L | EXTERNAL | | | | performed at [facility], [address] | | LAB | | | | [address], | | | | | | [place] [address] | | | | + + + + + + | Glucose, | 160 (H)Comment: Testing | 65 - 99 mg/dL | EXTERNAL | | | Fasting | performed at [facility], [address] | | LAB | | | | [address], | | | | | | [place] [address] | | | | + + + + + + | BUN | 6 (L)Comment: Testing | 8 - 25 mg/dL | EXTERNAL | | | | performed at [facility], [address] | | LAB | | | | [address], | | | | | | [place] [address] | | | | + + + + + + | Creatinine | 0.8Comment: Testing | 0.70 - 1.30 | EXTERNAL | | | | performed at [facility], [address] | mg/dL | LAB | | | | [address], | | | | | | [place] [address] | | | | + + + + + + | Calcium | 9.1Comment: Testing | 8.5 - 10.5 | EXTERNAL | | | | performed at [facility], [address] | mg/dL | LAB | | | | [address] [place], | | | | | | [place] [address] | | | | + + + + + + | Albumin | 3.3 (L)Comment: Testing | 3.6 - 5.0 g/dL | EXTERNAL | | | | performed at [facility], [address] | | LAB | | | | [address], | | | | | | [place] [address] | | | | + + + + + + | PHOSPHORUS | 4.8Comment: Testing | 2.3 - 4.8 mg/dL | EXTERNAL | | | | performed at [facility], [address] | | LAB | | | | [address], | | | | | | [place] [address] | | | | + + + [...] | | | | | | [place] [address] | | | | + + + [...] | | Virus, IgG | performed at [facility], [address] | | LAB | | | | [place] | | | | | | [place] [address] | | | | + + + + + + | West Nile | 0.03Comment: Testing | | EXTERNAL | | | IgM | performed [facility], [address] | | LAB | | | | [address] | | | | | | [place] [address] | | | | + + + [...] [place] | | | | | | [address] | | | | + + + [...] EXTERNAL | | | | performed at [facility], [address] | K/uL | LAB | | | | [place] [address], | | | | | | [place] [address] | | | | + + + + + + | RED CELL | 4.32Comment: Testing | 4.20 - 5.70 | EXTERNAL | | | COUNT | performed at [facility], [address] | M/uL | LAB | | | | [place], | | | | | | [place] [address] | | | | + + + + + + | Hgb | 12.5 (L)Comment: Testing | 13.2 - 17.0 | EXTERNAL | | | | performed at [facility], [address] | g/dL | LAB | | | | [address], | | | | | | [place] [address] | | | | + + + + + + | Hematocrit, | 36.6 (L)Comment: Testing | 39.0 - 50.0 % | EXTERNAL | | | POC | performed at [facility], [address] | | LAB | | | | [address], | | | | | | [place] [address] | | | | + + + + + + | MCV | 84.6Comment: Testing | 80.0 - 100.0 fl | EXTERNAL | | | | performed at [facility], [address] | | LAB | | | | [address], | | | | | | [place] [address] | | | | + + + + + + | MCH | 28.9Comment: Testing | 27.0 - 34.0 pg | EXTERNAL | | | | performed at [facility], [address] | | LAB | | | [address], | | | | | | [place] [address] | | | | + + + + + + | MCHC | 34.1Comment: Testing | 32.0 - 35.5 | EXTERNAL | | | | performed at [facility], [address] | g/dL | LAB | | | | [address], | | | | | | [place] [address] | | | | + + + + + + | RDW-CV | 47.7Comment: Testing | 37 - 53 fl | EXTERNAL | | | | performed at [facility], [address] | | LAB | | | | [address], | | | | | | [place] [address] | | | | + + + + + + | Platelet | 214Comment: Testing | 150 - 400 K/uL | EXTERNAL | | | Count | performed at [facility], [address] | | LAB | | | Plasma | [address], | | | | | | [place] [address] | | | | + + + + + + | MPV | 7.2Comment: Testing | fl | EXTERNAL | | | | performed at [facility], [address] | | LAB | | | | [address], | | | | | | [place] [address] | | | | + + + + + + | Differentia | AUTOMATEDComment: | | EXTERNAL | | | l Type | Testing performed at | | LAB | | | | [facility], [address] | | | | | | [place] | | | | | | [address] | | | | + + + + + + | % Segmented | 58.72Comment: Testing | % | EXTERNAL | | | | performed at [facility], [address] | | LAB | | | Neutrophils | [address], | | | | | | [place] [address] | | | | + + + + + + | % | 19.99Comment: Testing | % | EXTERNAL | | | Lymphocytes | performed at [facility], [address] | | LAB | | | | [address], | | | | | | [place] [address] | | | | + + + + + + | % Monocytes | 18.21Comment: Testing | % | EXTERNAL | | | | performed at [facility], [address] | | LAB | | | | [address], | | | | | | [place] [address] | | | | + + + + + + | % | 2.84Comment: Testing | % | EXTERNAL | | | Eosinophils | performed at [facility], [address] | | LAB | | | | [address], | | | | | | [place] [address] | | | | + + + + + + | % Basophils | 0.24Comment: Testing | % | EXTERNAL | | | | performed at [facility], [address] | | LAB | | | | [address], | | | | | | [place] [address] | | | | + + + + + + | Absolute | 4.97Comment: Testing | 1.90 - 7.40 | EXTERNAL | | | Segmented | performed at [facility], [address] | K/[address]L | LAB | | | Neutrophils | [address], | | | | | | [place] [address] | | | | + + + + + + | Absolute | 1.69Comment: Testing | 1.00 - 3.90 | EXTERNAL | | | Lymphocytes | performed at [facility], [address] | K/uL | LAB | | | | [address], | | | | | | [place] [address] | | | | + + + + + + | Absolute | 1.54 (H)Comment: Testing | 0.00 - 0.80 | EXTERNAL | | | Monocytes | performed at [facility], [address] | [address] | LAB | | | | [address], | | | | | | [place] [address] | | | | + + + + + + | Absolute | 0.24Comment: Testing | 0.00 - 0.50 | EXTERNAL | | | Eosinophils | performed at [facility], [address] | K/[address] | LAB | | | | [address], | | | | | | [place] [address] | | | | + + + + + + | Absolute | 0.02Comment: Testing | 0.00 - 0.10 | EXTERNAL | | | Basophils | performed at [facility], [address] | K/uL | LAB | | | | [address], | | | | | | [place] [address] | | | | + + + [...] EXTERNAL | | | | performed at [facility], [address] | | LAB | | | | [address], | | | | | | [place] [address] | | | | + + + [...] | | | | | [place] [address] | | | | + + + + + + | K | 4.0Comment: Testing | 3.5 - 4.9 | EXTERNAL | | | | performed at [facility], [address] | mmol/L | LAB | | | | [address], | | | | | | [place] [address] | | | | + + + + + + | Cl | 105Comment: Testing | 99 - 109 mmol/L | EXTERNAL | | | | performed at [facility], [address] | | LAB | | | | [address], | | | | | | [place] [address] | | | | + + + + + + | CO2 | 24Comment: Testing | 23 - 32 mmol/L | EXTERNAL | | | | performed at [facility], [address] | | LAB | | | | [address], | | | | | | [place] [address] | | | | + + + + + + | Anion Gap | 16Comment: Testing | 5 - 20 mmol/L | EXTERNAL | | | | performed at [facility], [address] | | LAB | | | | [address], | | | | | | [place] [address] | | | | + + + + + + | Glucose, | 144 (H)Comment: Testing | 65 - 99 mg/dL | EXTERNAL | | | Fasting | performed at [facility], [address] | | LAB | | | | [address], | | | | | | [place] [address] | | | | + + + + + + | BUN | 5 (L)Comment: Testing | 8 - 25 mg/dL | EXTERNAL | | | | performed at [facility], [address] | | LAB | | | | [address], | | | | | | [place] [address] | | | | + + + + + + | Creatinine | 0.6 (L)Comment: Testing | 0.70 - 1.30 | EXTERNAL | | | | performed at [facility], [address] | mg/dL | LAB | | | | [address], | | | | | | [place] [address] | | | | + + + + + + | Calcium | 8.4 (L)Comment: Testing | 8.5 - 10.5 | EXTERNAL | | | | performed at [facility], [address] | mg/dL | LAB | | | | [address], | | | | | | [place] [address] | | | | + + + + + + | Albumin | 2.9 (L)Comment: Testing | 3.6 - 5.0 g/dL | EXTERNAL | | | | performed at [facility], [address] | | LAB | | | | [address], | | | | | | [place] [address] | | | | + + + + + + | PHOSPHORUS | 4.5Comment: Testing | 2.3 - 4.8 mg/dL | EXTERNAL | | | | performed at [facility], [address] | | LAB | | | | [address], | | | | | | [place] [address] | | | | + + + [...] [address], | | | | | | [place] [address] | | | | + + + + + + + + | Specimen | + + | | + + + +---------+ + + | Performing | Address | City[facility]State[facility] | Phone Number | | Organization [...] EXTERNAL | | | | performed at [facility], [address] | K/uL | LAB | | | | [address], | | | | | | [place] [address] | | | | + + + + + + | RED CELL | 4.45Comment: Testing | 4.20 - 5.70 | EXTERNAL | | | COUNT | performed at [facility], [address] | M/uL | LAB | | | | [address], | | | | | | [place] [address] | | | | + + + + + + | Hgb | 12.6 (L)Comment: Testing | 13.2 - 17.0 | EXTERNAL | | | | performed at [facility], [address] | g/dL | LAB | | | | [address], | | | | | | [place] [address] | | | | + + + + + + | Hematocrit, | 37.6 (L)Comment: Testing | 39.0 - 50.0 % | EXTERNAL | | | POC | performed at [facility], [address] | | LAB | | | | [address], | | | | | | [place] [address] | | | | + + + + + + | MCV | 84.4Comment: Testing | 80.0 - 100.0 fl | EXTERNAL | | | | performed at [facility], [address] | | LAB | | | | [address], | | | | | | [place] [address] | | | | + + + + + + | MCH | 28.4Comment: Testing | 27.0 - 34.0 pg | EXTERNAL | | | | performed at [facility], [address] | | LAB | | | | [address], | | | | | | [place] [address] | | | | + + + + + + | MCHC | 33.6Comment: Testing | 32.0 - 35.5 | EXTERNAL | | | | performed at [facility], [address] | g/dL | LAB | | | | [address], | | | | | | [place] [address] | | | | + + + + + + | RDW-CV | 49.4Comment: Testing | 37 - 53 fl | EXTERNAL | | | | performed at [facility], [address] | | LAB | | | | [address], | | | | | | [place] [address] | | | | + + + + + + | Platelet | 214Comment: Testing | 150 - 400 K/uL | EXTERNAL | | | Count | performed at [facility], [address] | | LAB | | | Plasma | [address], | | | | | | [place] [address] | | | | + + + + + + | MPV | 7.3Comment: Testing | fl | EXTERNAL | | | | performed at [facility], [address] | | LAB | | | | [address], | | | | | | [place] [address] | | | | + + + + + + | Differentia | AUTOMATEDComment: | | EXTERNAL | | | l Type | Testing performed at | | LAB | | | | [facility], [address] | | | | | | [place] | | | | | | [address] | | | | + + + + + + | % Segmented | 52.21Comment: Testing | % | EXTERNAL | | | | performed at [facility], [address] | | LAB | | | Neutrophils | [address], | | | | | | [place] [address] | | | | + + + + + + | % | 25.94Comment: Testing | % | EXTERNAL | | | Lymphocytes | performed at [facility], [address] | | LAB | | | | [address], | | | | | | [place] [address] | | | | + + + + + + | % Monocytes | 17.82Comment: Testing | % | EXTERNAL | | | | performed at [facility], [address] | | LAB | | | | [address], | | | | | | [place] [address] | | | | + + + + + + | % | 3.54Comment: Testing | % | EXTERNAL | | | Eosinophils | performed at [facility], [address] | | LAB | | | | [address], | | | | | | [place] [address] | | | | + + + + + + | % Basophils | 0.49Comment: Testing | % | EXTERNAL | | | | performed at [facility], [address] | | LAB | | | | [address], | | | | | | [place] [address] | | | | + + + + + + | Absolute | 4.42Comment: Testing | 1.90 - 7.40 | EXTERNAL | | | Segmented | performed at [facility], [address] | K/uL | LAB | | | Neutrophils | [address], | | | | | | [place] [address] | | | | + + + + + + | Absolute | 2.20Comment: Testing | 1.00 - 3.90 | EXTERNAL | | | Lymphocytes | performed at [facility], [address] | K/uL | LAB | | | | [address], | | | | | | [place] [address] | | | | + + + + + + | Absolute | 1.51 (H)Comment: Testing | 0.00 - 0.80 | EXTERNAL | | | Monocytes | performed at [facility], [address] | K/uL | LAB | | | | [address], | | | | | | [place] [address] | | | | + + + + + + | Absolute | 0.30Comment: Testing | 0.00 - 0.50 | EXTERNAL | | | Eosinophils | performed at [facility], [address] | K/uL | LAB | | | | [address], | | | | | | [place] [address] | | | | + + + + + + | Absolute | 0.04Comment: Testing | 0.00 - 0.10 | EXTERNAL | | | Basophils | performed at [facility], [address] | K/uL | LAB | | | | [address], | | | | | | [place] [address] | | | | + + + [...] | | | | | [place] [address] | | | | + + + [...] | | | | | [place] [address] | | | | + + + + + + | K | 4.1Comment: Testing | 3.5 - 4.9 | EXTERNAL | | | | performed at [facility], [address] | mmol/L | LAB | | | | [address], | | | | | | [place] [address] | | | | + + + + + + | Cl | 104Comment: Testing | 99 - 109 mmol/L | EXTERNAL | | | | performed at [facility], [address] | | LAB | | | | [address], | | | | | | [place] [address] | | | | + + + + + + | CO2 | 26Comment: Testing | 23 - 32 mmol/L | EXTERNAL | | | | performed at [facility], [address] | | LAB | | | | [address], | | | | | | [place] [address] | | | | + + + + + + | Anion Gap | 15Comment: Testing | 5 - 20 mmol/L | EXTERNAL | | | | performed at [facility], [address] | | LAB | | | | [address], | | | | | | [place] [address] | | | | + + + + + + | Glucose, | 96Comment: Testing | 65 - 99 mg/dL | EXTERNAL | | | Fasting | performed at [facility], [address] | | LAB | | | | [address], | | | | | | [place] [address] | | | | + + + + + + | BUN | 7 (L)Comment: Testing | 8 - 25 mg/dL | EXTERNAL | | | | performed at [facility], [address] | | LAB | | | | [address], | | | | | | [place] [address] | | | | + + + + + + | Creatinine | 0.6 (L)Comment: Testing | 0.70 - 1.30 | EXTERNAL | | | | performed at [facility], [address] | mg/dL | LAB | | | | [address], | | | | | | [place] [address] | | | | + + + + + + | Calcium | 8.9Comment: Testing | 8.5 - 10.5 | EXTERNAL | | | | performed at [facility], [address] | mg/dL | LAB | | | | [address], | | | | | | [place] [address] | | | | + + + + + + | Albumin | 3.0 (L)Comment: Testing | 3.6 - 5.0 g/dL | EXTERNAL | | | | performed at [facility], [address] | | LAB | | | | [address], | | | | | | [place] [address] | | | | + + + + + + | PHOSPHORUS | 5.5 (H)Comment: Testing | 2.3 - 4.8 mg/dL | EXTERNAL | | | | performed at [facility], [address] | | LAB | | | | [address], | | | | | | [place] [address] | | | | + + + [...] | | | | | [place] [address] | | | | + + + [...] | | | | | [place] [address] | | | | + + + + + + | RED CELL | 4.28Comment: Testing | 4.20 - 5.70 | EXTERNAL | | | COUNT | performed at [facility], [address] | M/uL | LAB | | | | [address], | | | | | | [place] [address] | | | | + + + + + + | Hgb | 12.3 (L)Comment: Testing | 13.2 - 17.0 | EXTERNAL | | | | performed at [facility], [address] | g/dL | LAB | | | | [address], | | | | | | [place] [address] | | | | + + + + + + | Hematocrit, | 35.9 (L)Comment: Testing | 39.0 - 50.0 % | EXTERNAL | | | POC | performed at [facility], [address] | | LAB | | | | [address], | | | | | | [place] [address] | | | | + + + + + + | MCV | 83.8Comment: Testing | 80.0 - 100.0 fl | EXTERNAL | | | | performed at [facility], [address] | | LAB | | | | [address], | | | | | | [place] [address] | | | | + + + + + + | MCH | 28.7Comment: Testing | 27.0 - 34.0 pg | EXTERNAL | | | | performed at [facility], [address] | | LAB | | | | [address], | | | | | | [place] [address] | | | | + + + + + + | MCHC | 34.3Comment: Testing | 32.0 - 35.5 | EXTERNAL | | | | performed at [facility], [address] | g/dL | LAB | | | | [address], | | | | | | [place] [address] | | | | + + + + + + | RDW-CV | 47.7Comment: Testing | 37 - 53 fl | EXTERNAL | | | | performed at [facility], [address] | | LAB | | | | [address], | | | | | | [place] [address] | | | | + + + + + + | Platelet | 178Comment: Testing | 150 - 400 K/uL | EXTERNAL | | | Count | performed at [facility], [address] | | LAB | | | Plasma | [address], | | | | | | [place] [address] | | | | + + + + + + | MPV | 7.2Comment: Testing | fl | EXTERNAL | | | | performed at [facility], [address] | | LAB | | | | [address], | | | | | | [place] [address] | | | | + + + + + + | Differentia | AUTOMATEDComment: | | EXTERNAL | | | l Type | Testing performed at | | LAB | | | | [facility], [address] | | | | | | [place] | | | | | | [address] | | | | + + + + + + | % Segmented | 48.92Comment: Testing | % | EXTERNAL | | | | performed at [facility], [address] | | LAB | | | Neutrophils | [address], | | | | | | [place] [address] | | | | + + + + + + | % | 29.69Comment: Testing | % | EXTERNAL | | | Lymphocytes | performed at [facility], [address] | | LAB | | | | [address], | | | | | | [place] [address] | | | | + + + + + + | % Monocytes | 17.45Comment: Testing | % | EXTERNAL | | | | performed at [facility], [address] | | LAB | | | | [address], | | | | | | [place] [address] | | | | + + + + + + | % | 3.62Comment: Testing | % | EXTERNAL | | | Eosinophils | performed at [facility], [address] | | LAB | | | | [address], | | | | | | [place] [address] | | | | + + + + + + | % Basophils | 0.32Comment: Testing | % | EXTERNAL | | | | performed at [facility], [address] | | LAB | | | | [address], | | | | | | [place] [address] | | | | + + + + + + | Absolute | 4.25Comment: Testing | 1.90 - 7.40 | EXTERNAL | | | Segmented | performed at [facility], [address] | K/uL | LAB | | | Neutrophils | [address], | | | | | | [place] [address] | | | | + + + + + + | Absolute | 2.58Comment: Testing | 1.00 - 3.90 | EXTERNAL | | | Lymphocytes | performed at [facility], [address] | K/uL | LAB | | | | [address], | | | | | | [place] [address] | | | | + + + + + + | Absolute | 1.52 (H)Comment: Testing | 0.00 - 0.80 | EXTERNAL | | | Monocytes | performed at [facility], [address] | [address] | LAB | | | | [address], | | | | | | [place] [address] | | | | + + + + + + | Absolute | 0.31Comment: Testing | 0.00 - 0.50 | EXTERNAL | | | Eosinophils | performed at [facility], [address] | K/uL | LAB | | | | [address], | | | | | | [place] [address] | | | | + + + + + + | Absolute | 0.03Comment: Testing | 0.00 - 0.10 | EXTERNAL | | | Basophils | performed at [facility], [address] | K/uL | LAB | | | | [address], | | | | | | [place] [address] | | | | + + + [...] EXTERNAL | | | | performed at [facility], [address] | | LAB | | | | [address], | | | | | | [place] [address] | | | | + + + [...] | | | | | [place] [address] | | | | + + + + + + | K | 3.9Comment: Testing | 3.5 - 4.9 | EXTERNAL | | | | performed at [facility], [address] | mmol/L | LAB | | | | [address], | | | | | | [place] [address] | | | | + + + + + + | Cl | 104Comment: Testing | 99 - 109 mmol/L | EXTERNAL | | | | performed at [facility], [address] | | LAB | | | | [address], | | | | | | [place] [address] | | | | + + + + + + | CO2 | 27Comment: Testing | 23 - 32 mmol/L | EXTERNAL | | | | performed at [facility], [address] | | LAB | | | | [address], | | | | | | [place] [address] | | | | + + + + + + | Anion Gap | 14Comment: Testing | 5 - 20 mmol/L | EXTERNAL | | | | performed at [facility], [address] | | LAB | | | | [address], | | | | | | [place] [address] | | | | + + + + + + | Glucose, | 159 (H)Comment: Testing | 65 - 99 mg/dL | EXTERNAL | | | Fasting | performed at [facility], [address] | | LAB | | | | [address], | | | | | | [place] [address] | | | | + + + + + + | BUN | 4 (L)Comment: Testing | 8 - 25 mg/dL | EXTERNAL | | | | performed at [facility], [address] | | LAB | | | | [address], | | | | | | [place] [address] | | | | + + + + + + | Creatinine | 0.7Comment: Testing | 0.70 - 1.30 | EXTERNAL | | | | performed at [facility], [address] | mg/dL | LAB | | | | [address], | | | | | | [place] [address] | | | | + + + + + + | Calcium | 8.7Comment: Testing | 8.5 - 10.5 | EXTERNAL | | | | performed at [facility], [address] | mg/dL | LAB | | | | [address], | | | | | | [place] [address] | | | | + + + + + + | Albumin | 2.9 (L)Comment: Testing | 3.6 - 5.0 g/dL | EXTERNAL | | | | performed at [facility], [address] | | LAB | | | | [address], | | | | | | [place] [address] | | | | + + + + + + | PHOSPHORUS | 3.3Comment: Testing | 2.3 - 4.8 mg/dL | EXTERNAL | | | | performed at [facility], [address] | | LAB | | | | [address], | | | | | | [place] [address] | | | | + + + [...] [address], | | | | | | [place] [address] | | | | + + + [...] | | | | | performed at [facility], [address] | | | | | | [address], | | | | | | [place] [address] | | | | + + + [...] | | | | | [place] [address] | | | | + + + + + + | RED CELL | 4.63Comment: Testing | 4.20 - 5.70 | EXTERNAL | | | COUNT | performed at [facility], [address] | M/uL | LAB | | | | [address], | | | | | | [place] [address] | | | | + + + + + + | Hgb | 13.1 (L)Comment: Testing | 13.2 - 17.0 | EXTERNAL | | | | performed at [facility], [address] | g/dL | LAB | | | | [address], | | | | | | [place] [address] | | | | + + + + + + | Hematocrit, | 38.5 (L)Comment: Testing | 39.0 - 50.0 % | EXTERNAL | | | POC | performed at [facility], [address] | | LAB | | | | [address], | | | | | | [place] [address] | | | | + + + + + + | MCV | 83.1Comment: Testing | 80.0 - 100.0 fl | EXTERNAL | | | | performed at [facility], [address] | | LAB | | | | [address], | | | | | | [place] [address] | | | | + + + + + + | MCH | 28.2Comment: Testing | 27.0 - 34.0 pg | EXTERNAL | | | | performed at [facility], [address] | | LAB | | | | [address], | | | | | | [place] [address] | | | | + + + + + + | MCHC | 33.9Comment: Testing | 32.0 - 35.5 | EXTERNAL | | | | performed at [facility], [address] | g/dL | LAB | | | | [address], | | | | | | [place] [address] | | | | + + + + + + | RDW-CV | 47.7Comment: Testing | 37 - 53 fl | EXTERNAL | | | | performed at [facility], [address] | | LAB | | | [address], | | | | | | [place] [address] | | | | + + + + + + | Platelet | 188Comment: Testing | 150 - 400 K/uL | EXTERNAL | | | Count | performed at [facility], [address] | | LAB | | | Plasma | [address], | | | | | | [place] [address] | | | | + + + + + + | MPV | 7.3Comment: Testing | fl | EXTERNAL | | | | performed at [facility], [address] | | LAB | | | | [address], | | | | | | [place] [address] | | | | + + + + + + | Differentia | AUTOMATEDComment: | | EXTERNAL | | | l Type | Testing performed at | | LAB | | | | [facility], [address] | | | | | | [place] | | | | | | [address] | | | | + + + + + + | % Segmented | 53.22Comment: Testing | % | EXTERNAL | | | | performed at [facility], [address] | | LAB | | | Neutrophils | [address], | | | | | | [place] [address] | | | | + + + + + + | % | 29.15Comment: Testing | % | EXTERNAL | | | Lymphocytes | performed at [facility], [address] | | LAB | | | | [address], | | | | | | [place] [address] | | | | + + + + + + | % Monocytes | 13.48Comment: Testing | % | EXTERNAL | | | | performed at [facility], [address] | | LAB | | | | [address], | | | | | | [place] [address] | | | | + + + + + + | % | 3.98Comment: Testing | % | EXTERNAL | | | Eosinophils | performed at [facility], [address] | | LAB | | | | [address], | | | | | | [place] [address] | | | | + + + + + + | % Basophils | 0.17Comment: Testing | % | EXTERNAL | | | | performed at [facility], [address] | | LAB | | | | [address], | | | | | | [place] [address] | | | | + + + + + + | Absolute | 5.43Comment: Testing | 1.90 - 7.40 | EXTERNAL | | | Segmented | performed at [facility], [address] | K/uL | LAB | | | Neutrophils | [address], | | | | | | [place] [address] | | | | + + + + + + | Absolute | 2.98Comment: Testing | 1.00 - 3.90 | EXTERNAL | | | Lymphocytes | performed at [facility], [address] | K/uL | LAB | | | | [address], | | | | | | [place] [address] | | | | + + + + + + | Absolute | 1.38 (H)Comment: Testing | 0.00 - 0.80 | EXTERNAL | | | Monocytes | performed at [facility], [address] | K/uL | LAB | | | | [address], | | | | | | [place] [address] | | | | + + + + + + | Absolute | 0.41Comment: Testing | 0.00 - 0.50 | EXTERNAL | | | Eosinophils | performed at [facility], [address] | K/uL | LAB | | | | [address], | | | | | | [place] [address] | | | | + + + + + + | Absolute | 0.02Comment: Testing | 0.00 - 0.10 | EXTERNAL | | | Basophils | performed at [facility], [address] | K/uL | LAB | | | | [address], | | | | | | [place] [address] | | | | + + + [...] EXTERNAL | | | | performed at [facility], [address] | | LAB | | | | [address], | | | | | | [place] [address] | | | | + + + [...] EXTERNAL | | | | performed at [facility], [address] | | LAB | | | | [address], | | | | | | [place] [address] | | | | + + + [...] | | | | | [place] [address] | | | | + + + + + + | K | 3.4 (L)Comment: Testing | 3.5 - 4.9 | EXTERNAL | | | | performed at [facility], [address] | mmol/L | LAB | | | | [address], | | | | | | [place] [address] | | | | + + + + + + | Cl | 103Comment: Testing | 99 - 109 mmol/L | EXTERNAL | | | | performed at [facility], [address] | | LAB | | | | [address], | | | | | | [place] [address] | | | | + + + + + + | CO2 | 26Comment: Testing | 23 - 32 mmol/L | EXTERNAL | | | | performed at [facility], [address] | | LAB | | | | [address], | | | | | | [place] [address] | | | | + + + + + + | Anion Gap | 15Comment: Testing | 5 - 20 mmol/L | EXTERNAL | | | | performed at [facility], [address] | | LAB | | | | [address], | | | | | | [place] [address] | | | | + + + + + + | Glucose, | 203 (H)Comment: Testing | 65 - 99 mg/dL | EXTERNAL | | | Fasting | performed at [facility], [address] | | LAB | | | | [address], | | | | | | [place] [address] | | | | + + + + + + | BUN | 5 (L)Comment: Testing | 8 - 25 mg/dL | EXTERNAL | | | | performed at [facility], [address] | | LAB | | | | [address], | | | | | | [place] [address] | | | | + + + + + + | Creatinine | 0.9Comment: Testing | 0.70 - 1.30 | EXTERNAL | | | | performed at [facility], [address] | mg/dL | LAB | | | | [address], | | | | | | [place] [address] | | | | + + + + + + | BUN/Creatin | 6Comment: Testing | | EXTERNAL | | | ine Ratio | performed at [facility], [address] | | LAB | | | | [address], | | | | | | [place] [address] | | | | + + + + + + | Calcium | 8.7Comment: Testing | 8.5 - 10.5 | EXTERNAL | | | | performed at [facility], [address] | mg/dL | LAB | | | | [address], | | | | | | [place] [address] | | | | + + + + + + | Protein, | 6.5Comment: Testing | 6.3 - 8.2 g/dL | EXTERNAL | | | Total | performed at [facility], [address] | | LAB | | | | [address], | | | | | | [place] [address] | | | | + + + + + + | Albumin | 3.2 (L)Comment: Testing | 3.6 - 5.0 g/dL | EXTERNAL | | | | performed at [facility], [address] | | LAB | | | | [address], | | | | | | [place] [address] | | | | + + + + + + | Globulin | 3.3Comment: Testing | 1.3 - 4.9 g/dL | EXTERNAL | | | | performed at [facility], [address] | | LAB | | | | [address], | | | | | | [place] [address] | | | | + + + + + + | A/G Ratio | 1.0Comment: Testing | 1.0 - 2.4 | EXTERNAL | | | | performed at [facility], [address] | | LAB | | | | [address], | | | | | | [place] [address] | | | | + + + + + + | Bilirubin | 0.2Comment: Testing | 0.1 - 1.5 mg/dL | EXTERNAL | | | Total | performed at [facility], [address] | | LAB | | | | [address], | | | | | | [place] [address] | | | | + + + + + + | ALP, | 60Comment: Testing | 35 - 115 U/L | EXTERNAL | | | External | performed at [facility], [address] | | LAB | | | | [address], | | | | | | [place] [address] | | | | + + + + + + | AST | 80 (H)Comment: Testing | 10 - 45 U/L | EXTERNAL | | | | performed at [facility], [address] | | LAB | | | | [address], | | | | | | [place] [address] | | | | + + + + + + | ALT | 101 (H)Comment: Testing | 10 - 65 U/L | EXTERNAL | | | | performed at [facility], [address] | | LAB | | | | [address], | | | | | | [place] [address] | | | | + + + [...] | | | | | | at [facility], [address] | | | | | | [address], | | | | | | [place] [address] | | | | + + + [...] | | Last Dose | performed at [facility];888 | | LAB | | | | [address];[place] | | | | | | [address] | | | | + + + + + + | Time of | UNKNOWNComment: Testing | | EXTERNAL | | | Last Dose | performed at [facility];888 | | LAB | | | | [address];[place] | | | | | | [address] | | | | + + + + + + | Dilantin | 8.0 (L)Comment: Testing | 10 - 20 ug/mL | EXTERNAL | | | | performed at [facility];888 | | LAB | | | | [address];[place], [place] | | | | | | [address] | | | | + + + [...] | | | | | [place] [address] | | | | + + + + + + | K | 4.1Comment: Testing | 3.5 - 4.9 | EXTERNAL | | | | performed at [facility], [address] | mmol/L | LAB | | | | [address], | | | | | | [place] [address] | | | | + + + + + + | Cl | 105Comment: Testing | 99 - 109 mmol/L | EXTERNAL | | | | performed at [facility], [address] | | LAB | | | | [address], | | | | | | [place] [address] | | | | + + + + + + | CO2 | 28Comment: Testing | 23 - 32 mmol/L | EXTERNAL | | | | performed at [facility], [address] | | LAB | | | | [address], | | | | | | [place] [address] | | | | + + + + + + | Anion Gap | 13Comment: Testing | 5 - 20 mmol/L | EXTERNAL | | | | performed at [facility], [address] | | LAB | | | | [address], | | | | | | [place] [address] | | | | + + + + + + | Glucose, | 90Comment: Testing | 65 - 99 mg/dL | EXTERNAL | | | Fasting | performed at [facility], [address] | | LAB | | | | [address], | | | | | | [place] [address] | | | | + + + + + + | BUN | 4 (L)Comment: Testing | 8 - 25 mg/dL | EXTERNAL | | | | performed at [facility], [address] | | LAB | | | | [address], | | | | | | [place] [address] | | | | + + + + + + | Creatinine | 0.6 (L)Comment: Testing | 0.70 - 1.30 | EXTERNAL | | | | performed at [facility], [address] | mg/dL | LAB | | | | [address], | | | | | | [place] [address] | | | | + + + + + + | BUN/Creatin | 7Comment: Testing | | EXTERNAL | | | ine Ratio | performed at [facility], [address] | | LAB | | | | [address], | | | | | | [place] [address] | | | | + + + + + + | Calcium | 9.4Comment: Testing | 8.5 - 10.5 | EXTERNAL | | | | performed at [facility], [address] | mg/dL | LAB | | | | [address], | | | | | | [place] [address] | | | | + + + + + + | Protein, | 6.5Comment: Testing | 6.3 - 8.2 g/dL | EXTERNAL | | | Total | performed at [facility], [address] | | LAB | | | | [address], | | | | | | [place] [address] | | | | + + + + + + | Albumin | 3.2 (L)Comment: Testing | 3.6 - 5.0 g/dL | EXTERNAL | | | | performed at [facility], [address] | | LAB | | | | [address], | | | | | | [place] [address] | | | | + + + + + + | Globulin | 3.3Comment: Testing | 1.3 - 4.9 g/dL | EXTERNAL | | | | performed at [facility], [address] | | LAB | | | | [address], | | | | | | [place] [address] | | | | + + + + + + | A/G Ratio | 1.0Comment: Testing | 1.0 - 2.4 | EXTERNAL | | | | performed at [facility], [address] | | LAB | | | | [address], | | | | | | [place] [address] | | | | + + + + + + | Bilirubin | 0.2Comment: Testing | 0.1 - 1.5 mg/dL | EXTERNAL | | | Total | performed at [facility], [address] | | LAB | | | | [address], | | | | | | [place] [address] | | | | + + + + + + | ALP, | 64Comment: Testing | 35 - 115 U/L | EXTERNAL | | | External | performed at [facility], [address] | | LAB | | | | [address], | | | | | | [place] [address] | | | | + + + + + + | AST | 81 (H)Comment: Testing | 10 - 45 U/L | EXTERNAL | | | | performed at [facility], [address] | | LAB | | | | [address], | | | | | | [place] [address] | | | | + + + + + + | ALT | 96 (H)Comment: Testing | 10 - 65 U/L | EXTERNAL | | | | performed at [facility], [address] | | LAB | | | | [address], | | | | | | [place] [address] | | | | + + + [...] [address], | | | | | | [place] [address] | | | | + + + [...] [place] | | | | | | [address] | | | | + + + + + + | RED CELL | 5.05Comment: Testing | 4.20 - 5.70 | EXTERNAL | | | COUNT | performed at [facility], [address] | M/uL | LAB | | | | [address], | | | | | | [place] [address] | | | | + + + + + + | Hgb | 14.3Comment: Testing | 13.2 - 17.0 | EXTERNAL | | | | performed at [facility], [address] | g/dL | LAB | | | | [address], | | | | | | [place] [address] | | | | + + + + + + | Hematocrit, | 41.8Comment: Testing | 39.0 - 50.0 % | EXTERNAL | | | POC | performed at [facility], [address] | | LAB | | | | [address], | | | | | | [place] [address] | | | | + + + + + + | MCV | 82.6Comment: Testing | 80.0 - 100.0 fl | EXTERNAL | | | | performed at [facility], [address] | | LAB | | | | [address], | | | | | | [place] [address] | | | | + + + + + + | MCH | 28.3Comment: Testing | 27.0 - 34.0 pg | EXTERNAL | | | | performed at [facility], [address] | | LAB | | | | [address] [address], | | | | | | [place] [address] | | | | + + + + + + | MCHC | 34.3Comment: Testing | 32.0 - 35.5 | EXTERNAL | | | | performed at [facility], [address] | g/dL | LAB | | | | [address], | | | | | | [place] [address] | | | | + + + + + + | RDW-CV | 46.4Comment: Testing | 37 - 53 fl | EXTERNAL | | | | performed at [facility], [address] | | LAB | | | | [address], | | | | | | [place] [address] | | | | + + + + + + | Platelet | 161Comment: Testing | 150 - 400 K/uL | EXTERNAL | | | Count | performed at [facility], [address] | | LAB | | | Plasma | [address], | | | | | | [place] [address] | | | | + + + + + + | MPV | 7.1Comment: Testing | fl | EXTERNAL | | | | performed at [facility], [address] | | LAB | | | | [address], | | | | | | [place] [address] | | | | + + + + + + | Differentia | MANUALComment: Testing | | EXTERNAL | | | l Type | performed at [facility], [address] | | LAB | | | | [address], | | | | | | [place] [address] | | | | + + + + + + | Segmented | 49Comment: Testing | % | EXTERNAL | | | Neutrophils | performed at [facility], [address] | | LAB | | | Manual | [address], | | | | | | [place] [address] | | | | + + + + + + | % Bands | 1Comment: Testing | % | EXTERNAL | | | | performed at [facility], [address] | | LAB | | | | [address], | | | | | | [place] [address] | | | | + + + + + + | Lymphocytes | 28Comment: Testing | % | EXTERNAL | | | Manual | performed at [facility], [address] | | LAB | | | | [address], | | | | | | [place] [address] | | | | + + + + + + | Reactive | 2Comment: Testing | % | EXTERNAL | | | Lymphocytes | performed at [facility], [address] | | LAB | | | | [address], | | | | | | [place] [address] | | | | + + + + + + | Monocytes | 15Comment: Testing | % | EXTERNAL | | | Manual | performed at [facility], [address] | | LAB | | | | [address], | | | | | | [place] [address] | | | | + + + + + + | Eosinophils | 4Comment: Testing | % | EXTERNAL | | | Manual | performed at [facility], [address] | | LAB | | | | [address], | | | | | | [place] [address] | | | | + + + + + + | Basophils | 1Comment: Testing | % | EXTERNAL | | | Manual | performed at [facility], [address] | | LAB | | | | [address], | | | | | | [place] [address] | | | | + + + + + + | Absolute | 5.44Comment: Testing | 1.90 - 7.40 | EXTERNAL | | | Neutrophils | performed at [facility], [address] | K/uL | LAB | | | | [address], | | | | | | [place] [address] | | | | + + + + + + | Bands | 0.11Comment: Testing | 0.00 - 0.20 | EXTERNAL | | | Manual | performed at [facility], [address] | K/uL | LAB | | | | [address], | | | | | | [place] [address] | | | | + + + + + + | Absolute | 3.11Comment: Testing | 1.00 - 3.90 | EXTERNAL | | | Lymphocytes | performed at [facility], [address] | K/uL | LAB | | | | [address], | | | | | | [place] [address] | | | | + + + + + + | Reactive | 0.22Comment: Testing | K/uL | EXTERNAL | | | Lymphocytes | performed at [facility], [address] | | LAB | | | | [address], | | | | | | [place] [address] | | | | + + + + + + | Absolute | 1.67 (H)Comment: Testing | 0.00 - 0.80 | EXTERNAL | | | Monocytes | performed at [facility], [address] | K/uL | LAB | | | | [address], | | | | | | [place] [address] | | | | + + + + + + | Absolute | 0.44Comment: Testing | 0.00 - 0.50 | EXTERNAL | | | Eosinophils | performed at [facility], [address] | K/uL | LAB | | | | [address], | | | | | | [place] [address] | | | | + + + + + + | Absolute | 0.11 (H)Comment: Testing | 0.00 - 0.10 | EXTERNAL | | | Basophils | performed at [facility], [address] | K/uL | LAB | | | | [address], | | | | | | [place] [address] | | | | + + + + + + | RBC | RBC AND PLT MORPHOLOGY | | EXTERNAL | | | Morphology | APPEAR NORMALComment: | | LAB | | | | Testing performed at | | | | | | [facility], [address] | | | | | | [address] | | | | | | [address] | | | | + + + [...] | | | | | [place] [address] | | | | + + + + + + | K | 4.3Comment: Testing | 3.5 - 4.9 | EXTERNAL | | | | performed at [facility], [address] | mmol/L | LAB | | | | [address], | | | | | | [place] [address] | | | | + + + + + + | Cl | 104Comment: Testing | 99 - 109 mmol/L | EXTERNAL | | | | performed at [facility], [address] | | LAB | | | | [address], | | | | | | [place] [address] | | | | + + + + + + | CO2 | 26Comment: Testing | 23 - 32 mmol/L | EXTERNAL | | | | performed at [facility], [address] | | LAB | | | | [address], | | | | | | [place] [address] | | | | + + + + + + | Anion Gap | 16Comment: Testing | 5 - 20 mmol/L | EXTERNAL | | | | performed at [facility], [address] | | LAB | | | | [address], | | | | | | [place] [address] | | | | + + + + + + | Glucose, | 107 (H)Comment: Testing | 65 - 99 mg/dL | EXTERNAL | | | Fasting | performed at [facility], [address] | | LAB | | | | [address], | | | | | | [place] [address] | | | | + + + + + + | BUN | 4 (L)Comment: Testing | 8 - 25 mg/dL | EXTERNAL | | | | performed at [facility], [address] | | LAB | | | | [address], | | | | | | [place] [address] | | | | + + + + + + | Creatinine | 0.7Comment: Testing | 0.70 - 1.30 | EXTERNAL | | | | performed at [facility], [address] | mg/dL | LAB | | | | [address], | | | | | | [place] [address] | | | | + + + + + + | BUN/Creatin | 6Comment: Testing | | EXTERNAL | | | ine Ratio | performed at [facility], [address] | | LAB | | | | [address], | | | | | | [place] [address] | | | | + + + + + + | Calcium | 9.2Comment: Testing | 8.5 - 10.5 | EXTERNAL | | | | performed at [facility], [address] | mg/dL | LAB | | | | [address] [facility], | | | | | | [place] [address] | | | | + + + [...] | | | | | | at [facility], [address] | | | | | | [facility], | | | | | | [place] [address] | | | | + + + [...] + + | Historically converted procedure from [facility] Epic environment | EXTERNAL LAB | + [...] EXTERNAL | | | | performed at [facility];[address] | K/uL | LAB | | | | [address];[place] | | | | | | [address] | | | | + + + + + + | RED CELL | 4.84Comment: Testing | 4.20 - 5.70 | EXTERNAL | | | COUNT | performed at [facility];[address] | M/uL | LAB | | | | [address];[place] | | | | | | [address] | | | | + + + + + + | Hgb | 13.3Comment: Testing | 13.2 - 17.0 | EXTERNAL | | | | performed at [facility];[address] | g/dL | LAB | | | | [address];[place] | | | | | | [address] | | | | + + + + + + | Hematocrit, | 39.8Comment: Testing | 39.0 - 50.0 % | EXTERNAL | | | POC | performed at [facility];[address] | | LAB | | | | [address];[place] | | | | | | [address] | | | | + + + + + + | MCV | 82.3Comment: Testing | 80.0 - 100.0 fl | EXTERNAL | | | | performed at [facility];[address] | | LAB | | | | [address];[place] | | | | | | [address] | | | | + + + + + + | MCH | 27.5Comment: Testing | 27.0 - 34.0 pg | EXTERNAL | | | | performed at [facility];[address] | | LAB | | | | [address];[place] | | | | | | [address] | | | | + + + + + + | MCHC | 33.4Comment: Testing | 32.0 - 35.5 | EXTERNAL | | | | performed at [facility];[address] | g/dL | LAB | | | | [address];[place] | | | | | | [address] | | | | + + + + + + | RDW-CV | 47.3Comment: Testing | 37 - 53 fl | EXTERNAL | | | | performed at [facility];[address] | | LAB | | | | [address];[place] | | | | | | [address] | | | | + + + + + + | Platelet | 136 (L)Comment: Testing | 150 - 400 K/uL | EXTERNAL | | | Count | performed at [facility];[address] | | LAB | | | Plasma | [address];[place] | | | | | | [address] | | | | + + + + + + | MPV | 7.2Comment: Testing | fl | EXTERNAL | | | | performed at [facility];[address] | | LAB | | | | [address];[place] | | | | | | [address] | | | | + + + + + + | Differentia | MANUALComment: Testing | | EXTERNAL | | | l Type | performed at [facility];[address] | | LAB | | | | [address];[place] | | | | | | [address] | | | | + + + + + + | Segmented | 55Comment: Testing | % | EXTERNAL | | | Neutrophils | performed at [facility];[address] | | LAB | | | Manual | [address];[place] | | | | | | [address] | | | | + + + + + + | Lymphocytes | 34Comment: Testing | % | EXTERNAL | | | Manual | performed at [facility];[address] | | LAB | | | | [address];[place] | | | | | | [address] | | | | + + + + + + | Monocytes | 9Comment: Testing | % | EXTERNAL | | | Manual | performed at [facility];[address] | | LAB | | | | [address];[place] | | | | | | [address] | | | | + + + + + + | Eosinophils | 2Comment: Testing | % | EXTERNAL | | | Manual | performed at [facility];[address] | | LAB | | | | [address];[place] | | | | | | [address] | | | | + + + + + + | Absolute | 4.04Comment: Testing | 1.90 - 7.40 | EXTERNAL | | | Neutrophils | performed at [facility];[address] | K/uL | LAB | | | | [address];[place] | | | | | | [address] | | | | + + + + + + | Absolute | 2.50Comment: Testing | 1.00 - 3.90 | EXTERNAL | | | Lymphocytes | performed at [facility];[address] | K/uL | LAB | | | | [address];[place] | | | | | | [address] | | | | + + + + + + | Absolute | 0.66Comment: Testing | 0.00 - 0.80 | EXTERNAL | | | Monocytes | performed at [facility];[address] | K/uL | LAB | | | | [address];[place] | | | | | | [address] | | | | + + + + + + | Absolute | 0.15Comment: Testing | 0.00 - 0.50 | EXTERNAL | | | Eosinophils | performed at [facility];[address] | K/uL | LAB | | | | [address];[place] | | | | | | [address] | | | | + + + + + + | RBC | RBC AND PLT MORPHOLOGY | | EXTERNAL | | | Morphology | APPEAR NORMALComment: | | LAB | | | | Testing performed at | | | | | | [facility];[address] | | | | | [address];[place] [address] | | | | + + + [...] | | Last Dose | performed at [facility];[address] | | LAB | | | | [address];[place] | | | | | | [address] | | | | + + + + + + | Time of | UNKNOWNComment: Testing | | EXTERNAL | | | Last Dose | performed at [facility];[address] | | LAB | | | | [address];[place] | | | | | | [address] | | | | + + + + + + | Dilantin | 10.6Comment: Testing | 10 - 20 ug/mL | EXTERNAL | | | | performed at [facility];[address] | | LAB | | | | [address];[place], [place] | | | | | | [address] | | | | + + + [...] EXTERNAL | | | | performed at [facility];[address] | mmol/L | LAB | | | | [address];[place] | | | | | | [address] | | | | + + + + + + | K | 4.1Comment: Testing | 3.5 - 4.9 | EXTERNAL | | | | performed at [facility];[address] | mmol/L | LAB | | | | [address];[place] | | | | | | [address] | | | | + + + + + + | Cl | 106Comment: Testing | 99 - 109 mmol/L | EXTERNAL | | | | performed at [facility];[address] | | LAB | | | | [address];[place] | | | | | | [address] | | | | + + + + + + | CO2 | 24Comment: Testing | 23 - 32 mmol/L | EXTERNAL | | | | performed at [facility];[address] | | LAB | | | | [address];[place] | | | | | | [address] | | | | + + + + + + | Anion Gap | 16Comment: Testing | 5 - 20 mmol/L | EXTERNAL | | | | performed at [facility];[address] | | LAB | | | | [address];[place] | | | | | | [address] | | | | + + + + + + | Glucose, | 86Comment: Testing | 65 - 99 mg/dL | EXTERNAL | | | Fasting | performed at [facility];[address] | | LAB | | | | [address];[place] | | | | | | [address] | | | | + + + + + + | BUN | 10Comment: Testing | 8 - 25 mg/dL | EXTERNAL | | | | performed at [facility];[address] | | LAB | | | | [address];[place] | | | | | | [address] | | | | + + + + + + | Creatinine | 0.71Comment: Testing | 0.70 - 1.30 | EXTERNAL | | | | performed at [facility];[address] | mg/dL | LAB | | | | [address];[place] | | | | | | [address] | | | | + + + + + + | BUN/Creatin | 14Comment: Testing | | EXTERNAL | | | ine Ratio | performed at [facility];[address] | | LAB | | | | [address];[place] | | | | | | [address] | | | | + + + + + + | Calcium | 8.5Comment: Testing | 8.5 - 10.5 | EXTERNAL | | | | performed at [facility];[address] | mg/dL | LAB | | | | [address];[place], [place] | | | | | | [address] | | | | + + + [...] | | | | | | at [facility];[address] [place] [address] | | | | | | Blvd;[place] [address] | | | | + + + [...] | | LAB | | | | [facility] [address] | | | | | | [address];[place] [address] | | | | + + + [...] | | | SOURCE? | performed at [facility], [address] | | LAB | | | | [address], | | | | | | [place] [address] | | | | + + + + + + | CRYPTO AG | Comment: ACCESSION NO. | | EXTERNAL | | | CSF | | | LAB | | | | [id number] | | | | | | SOURCE | | | | | | SERUMRESULT | | | | | | | | | | | | | | | | | | NEGATIVETesting | | | | | | performed at [facility] | | | | | | [facility], | | | | | | [address], [place] | | | | | | [address] | | | | + + + + + + | CRYPTOCOCCU | REPORT STATUS | | EXTERNAL | | | S AG, CSF | FINAL | | LAB | | | | 05/10/2016Comment: | | | | | | Testing performed at | | | | | | [facility] | | | | | | [place], [address], | | | | | | [place] [address] | | | | + + + [...] | | | | | performed at [facility], [address] | | | | | | [place] | | | | | | [place] [address] | | | | + + + [...] | | | | | [place] [address] | | | | + + + + + + | RED CELL | 4.62Comment: Testing | 4.20 - 5.70 | EXTERNAL | | | COUNT | performed at [facility], [address] | M/uL | LAB | | | | [address], | | | | | | [place] [address] | | | | + + + + + + | Hgb | 13.2Comment: Testing | 13.2 - 17.0 | EXTERNAL | | | | performed at [facility], [address] | g/dL | LAB | | | | [address], | | | | | | [place] [address] | | | | + + + + + + | Hematocrit, | 38.8 (L)Comment: Testing | 39.0 - 50.0 % | EXTERNAL | | | POC | performed at [facility], [address] | | LAB | | | | [address], | | | | | | [place] [address] | | | | + + + + + + | MCV | 84.1Comment: Testing | 80.0 - 100.0 fl | EXTERNAL | | | | performed at [facility], [address] | | LAB | | | | [address], | | | | | | [place] [address] | | | | + + + + + + | MCH | 28.5Comment: Testing | 27.0 - 34.0 pg | EXTERNAL | | | | performed at [facility], [address] | | LAB | | | | [address], | | | | | | [place] [address] | | | | + + + + + + | MCHC | 33.9Comment: Testing | 32.0 - 35.5 | EXTERNAL | | | | performed at [facility], [address] | g/dL | LAB | | | | [address], | | | | | | [place] [address] | | | | + + + + + + | RDW-CV | 48.1Comment: Testing | 37 - 53 fl | EXTERNAL | | | | performed at [facility], [address] | | LAB | | | | [address], | | | | | | [place] [address] | | | | + + + + + + | Platelet | 125 (L)Comment: Testing | 150 - 400 K/uL | EXTERNAL | | | Count | performed at [facility], [address] | | LAB | | | Plasma | [address], | | | | | | [place] [address] | | | | + + + + + + | MPV | 7.3Comment: Testing | fl | EXTERNAL | | | | performed at [facility], [address] | | LAB | | | | [address], | | | | | | [place], [place] [address] | | | | + + + [...] | | Last Dose | performed at [facility];[address] | | LAB | | | | [address];[place] | | | | | | [address] | | | | + + + + + + | Time of | UNKNOWNComment: Testing | | EXTERNAL | | | Last Dose | performed at [facility];[address] | | LAB | | | | [address];[place] | | | | | | [address] | | | | + + + + + + | Dilantin | 8.9 (L)Comment: Testing | 10 - 20 ug/mL | EXTERNAL | | | | performed at [facility];[address] | | LAB | | | | [address];[place] | | | | | | [address] | | | | + + + [...] EXTERNAL | | | | performed at [facility];[address] | mmol/L | LAB | | | | [address];[place] | | | | | | [address] | | | | + + + + + + | K | 3.8Comment: SLT | 3.5 - 4.9 | EXTERNAL | | | | HEMOLYSISTesting | mmol/L | LAB | | | | performed at [facility];[address] | | | | | | [address];[place] | | | | | | [address] | | | | + + + + + + | Cl | 103Comment: Testing | 99 - 109 mmol/L | EXTERNAL | | | | performed at [facility];[address] | | LAB | | | | [address];[place] | | | | | | [address] | | | | + + + + + + | CO2 | 24Comment: Testing | 23 - 32 mmol/L | EXTERNAL | | | | performed at [facility];[address] | | LAB | | | | [address];[place] | | | | | | [address] | | | | + + + + + + | Anion Gap | 15Comment: Testing | 5 - 20 mmol/L | EXTERNAL | | | | performed at [facility];[address] | | LAB | | | | [address];[place] | | | | | | [address] | | | | + + + + + + | Glucose, | 98Comment: Testing | 65 - 99 mg/dL | EXTERNAL | | | Fasting | performed at [facility];[address] | | LAB | | | | [address];[place] | | | | | | [address] | | | | + + + + + + | BUN | 12Comment: Testing | 8 - 25 mg/dL | EXTERNAL | | | | performed at [facility];[address] | | LAB | | | | [address];[place] | | | | | | [address] | | | | + + + + + + | Creatinine | 0.75Comment: Testing | 0.70 - 1.30 | EXTERNAL | | | | performed at [facility];[address] | mg/dL | LAB | | | | [address];[place] | | | | | | [address] | | | | + + + + + + | BUN/Creatin | 16Comment: Testing | | EXTERNAL | | | ine Ratio | performed at [facility];[address] | | LAB | | | | [address];[place] | | | | | | [address] | | | | + + + + + + | Calcium | 8.3 (L)Comment: Testing | 8.5 - 10.5 | EXTERNAL | | | | performed at [facility];[address] | mg/dL | LAB | | | | [address];[place] | | | | | | [address] | | | | + + + + + + | Protein, | 6.1 (L)Comment: Testing | 6.3 - 8.2 g/dL | EXTERNAL | | | Total | performed at [facility];[address] | | LAB | | | | [address];[place] | | | | | | [address] | | | | + + + + + + | Albumin | 3.1 (L)Comment: Testing | 3.6 - 5.0 g/dL | EXTERNAL | | | | performed at [facility];[address] | | LAB | | | | [address];[place] | | | | | | [address] | | | | + + + + + + | Globulin | 3.0Comment: Testing | 1.3 - 4.9 g/dL | EXTERNAL | | | | performed at [facility];[address] | | LAB | | | | [address];[place] | | | | | | [address] | | | | + + + + + + | A/G Ratio | 1.1Comment: Testing | 1.0 - 2.4 | EXTERNAL | | | | performed at [facility];[address] | | LAB | | | | [address];[place] | | | | | | [address] | | | | + + + + + + | Bilirubin | 0.3Comment: Testing | 0.1 - 1.5 mg/dL | EXTERNAL | | | Total | performed at [facility];[address] | | LAB | | | | [address];[place] | | | | | | [address] | | | | + + + + + + | ALP, | 48Comment: Testing | 35 - 115 U/L | EXTERNAL | | | External | performed at [facility];[address] | | LAB | | | | [address];[place] | | | | | | [address] | | | | + + + + + + | AST | 45Comment: SLT | 10 - 45 U/L | EXTERNAL | | | | HEMOLYSISTesting | | LAB | | | | performed at [facility];[address] | | | | | | [address];[place] | | | | | | [address] | | | | + + + + + + | ALT | 83 (H)Comment: Testing | 10 - 65 U/L | EXTERNAL | | | | performed at [facility];[address] | | LAB | | | | [address];[place] | | | | | | [address] | | | | + + + [...] | | | | | | at [facility];[address] | [address];[place] [address] | | | | + + + [...] was also examined with | | | [employer] 3D software for evaluation of the cerebral [...] The data set was also examined with [employer] 3D software for evaluation of | | [...] | | CHARACTERISTICS HAVE BEEN DETERMINED BY [employer]. IT HAS NOT | | | BEEN CLEARED OR APPROVED BY THE [place] FOOD AND DRUG ADMINISTRATION. | | | THE FDA HAS DETERMINED THAT SUCH CLEARANCE OR APPROVAL IS NOT | | | NECESSARY. THIS ASSAY HAS BEEN VALIDATED PURSUANT TO THE CLIA | | | REGULATIONS AND IS USED FOR CLINICAL PURPOSES. Testing performed at | | | [facility], [address], [place] [address] | | + + + + +---------+ [...] EXTERNAL LAB | | Testing performed at [facility];[address] [facility];[place] [address] HSV DNA | | | Type 1 Not Detected Testing performed | | | at [facility], [address] [place] [address] HSV DNA Type 2 | | | DETECTED Abnormal Testing performed at | | | [facility], [address] [place] [address] COMMENT | | | SEE BELOW THE [...] TESTS. Testing performed at | | | [place] [address] COMMENT | | | SEE BELOW THIS TEST WAS DEVELOPED AND ITS | | | PERFORMANCE CHARACTERISTICS DETERMINED BY [facility]. THE U.S. FOOD AND | | | DRUG ADMINISTRATION (FDA) HAS NOT APPROVED OR CLEARED THIS TEST. | | | HOWEVER, FDA APPROVAL OR CLEARANCE IS CURRENTLY NOT REQUIRED FOR | | | CLINICAL USE OF THIS TEST. THE RESULTS ARE NOT INTENDED TO BE USED | | | THE SOLE MEANS FOR CLINICAL DIAGNOSIS OR PATIENT MANAGEMENT | | | DECISIONS. [facility] IS AUTHORIZED UNDER CLINICAL LABORATORY IMPROVEMENT | | | AMENDMENTS (CLIA) TO PERFORM HIGH-COMPLEXITY TESTING. Testing | | | performed at [facility], [address] [place] [address] | | + + + + +---------+ [...] | EXCEEDINGLY BLOODY SPECIMEN Testing performed at [facility];[address];[place] [address] | | + + + + +---------+ [...] | EXCEEDINGLY BLOODY SPECIMEN Testing performed at [facility];[address];[place] [address] | | + + + + +---------+ [...] facility was admitted to | | | [facility] 05/06/2016 for new onset seizures. PRE [...] conscious | | | sedation, and independent usp supervision of conscious | | | sedation [...] | who is also a resident of [facility] was admitted to the hospital 05/06/2016 for [...] | | adequate conscious sedation, and independent usp supervision of conscious | | sedation was [...] | | | | | performed at [facility];[address] | | | | | | [facility];[place], [place] | | | | | | [address] | | | | + + + [...] EXTERNAL | | | | performed at [facility];[address] | K[address] | LAB | | | | [address];[place] | | | | | | [address] | | | | + + + + + + | RED CELL | 4.90Comment: Testing | 4.20 - 5.70 | EXTERNAL | | | COUNT | performed at [facility];[address] | [address] | LAB | | | | [address];[place] | | | | | | [address] | | | | + + + + + + | Hgb | 13.7Comment: Testing | 13.2 - 17.0 | EXTERNAL | | | | performed at [facility];[address] | g/dL | LAB | | | | [address];[place] | | | | | | [address] | | | | + + + + + + | Hematocrit, | 40.4Comment: Testing | 39.0 - 50.0 % | EXTERNAL | | | POC | performed at [facility];[address] | | LAB | | | | [address];[place] | | | | | | [address] | | | | + + + + + + | MCV | 82.5Comment: Testing | 80.0 - 100.0 fl | EXTERNAL | | | | performed at [facility];[address] | | LAB | | | | [address];[place] | | | | | | [address] | | | | + + + + + + | MCH | 28.0Comment: Testing | 27.0 - 34.0 pg | EXTERNAL | | | | performed at [facility];[address] | | LAB | | | | [address];[place] | | | | | | [address] | | | | + + + + + + | MCHC | 33.9Comment: Testing | 32.0 - 35.5 | EXTERNAL | | | | performed at [facility];[address] | g/dL | LAB | | | | [address];[place] | | | | | | [address] | | | | + + + + + + | RDW-CV | 46.4Comment: Testing | 37 - 53 fl | EXTERNAL | | | | performed at [facility];[address] | | LAB | | | | [address];[place] | | | | | | [address] | | | | + + + + + + | Platelet | 152Comment: Testing | 150 - 400 K/uL | EXTERNAL | | | Count | performed at [facility];888 | | LAB | | | Plasma | [address];[place] | | | | | | [address] | | | | + + + + + + | MPV | 6.8Comment: Testing | fl | EXTERNAL | | | | performed at [facility];[address] | | LAB | | | | [address];[place] | | | | | | [address] | | | | + + + + + + | Differentia | AUTOMATEDComment: | | EXTERNAL | | | l Type | Testing performed at | | LAB | | | | [facility];[address];[place] [address] | | | | + + + + + + | % Segmented | 65.46Comment: Testing | % | EXTERNAL | | | | performed at [facility];888 | | LAB | | | Neutrophils | [address];[place] | | | | | | [address] | | | | + + + + + + | % | 26.25Comment: Testing | % | EXTERNAL | | | Lymphocytes | performed at [facility];[address] | | LAB | | | | [address];[place] | | | | | | [address] | | | | + + + + + + | % Monocytes | 7.82Comment: Testing | % | EXTERNAL | | | | performed at [facility];[address] | | LAB | | | | [address];[place] | | | | | | [address] | | | | + + + + + + | % | 0.21Comment: Testing | % | EXTERNAL | | | Eosinophils | performed at [facility];888 | | LAB | | | | [address];[place] | | | | | | [address] | | | | + + + + + + | % Basophils | 0.26Comment: Testing | % | EXTERNAL | | | | performed at [facility];[address] | | LAB | | | | [address];[place] | | | | | | [address] | | | | + + + + + + | Absolute | 6.74Comment: Testing | 1.90 - 7.40 | EXTERNAL | | | Segmented | performed at [facility];888 | K/uL | LAB | | | Neutrophils | [address];[place] | | | | | | [address] | | | | + + + + + + | Absolute | 2.70Comment: Testing | 1.00 - 3.90 | EXTERNAL | | | Lymphocytes | performed at [facility];888 | K/uL | LAB | | | | [address];[place] | | | | | | [address] | | | | + + + + + + | Absolute | 0.80Comment: Testing | 0.00 - 0.80 | EXTERNAL | | | Monocytes | performed at [facility];888 | K/uL | LAB | | | | [address];[place] | | | | | | [address] | | | | + + + + + + | Absolute | 0.02Comment: Testing | 0.00 - 0.50 | EXTERNAL | | | Eosinophils | performed at [facility];888 | K/uL | LAB | | | | [address];[place] | | | | | | [address] | | | | + + + + + + | Absolute | 0.03Comment: Testing | 0.00 - 0.10 | EXTERNAL | | | Basophils | performed at [facility];888 | K/uL | LAB | | | | [address];[place] | | | | | | [address] | | | | + + + [...] | | noncontrast CT head performed at [facility] 05/06/2016. | | | FINDINGS: The FLAIR [...] PDT FELICIANO GALVAN BRAIN WO | | [id number]/10/2016 11:50 AM HISTORY:20 years. Male. Seizure. TECHNIQUE:Incomplete [...] noncontrast CT head performed | | at [facility] 05/06/2016. FINDINGS:The FLAIR and T2 sequences demonstrate [...] EXTERNAL | | | | performed at [facility], [address] | | LAB | | | | [facility], | | | | | | [place] [address] | | | | + + + [...] | | LAB | | | | [facility] [address] | | | | | | [address];[place] [address] | | | | + + + + + + | Time of | NOT GIVENComment: | | EXTERNAL | | | Last Dose | Testing performed at | | LAB | | | | [facility];[address];[place] [address] | | | | + + + + + + | Dilantin | 6.9 (L)Comment: Testing | 10 - 20 ug/mL | EXTERNAL | | | | performed at [facility];[address] | | LAB | | | | [address];[place] | | | | | | [address] | | | | + + + [...] | | | | [facility], [address] | | | | | | [place] | | | | | | [address] | | | | + + + + + + | RED CELL | 4.89Comment: Testing | 4.20 - 5.70 | EXTERNAL | | | COUNT | performed at [facility], [address] | M/uL | LAB | | | | [address] [place], | | | | | | [place] [address] | | | | + + + + + + | Hgb | 13.8Comment: Testing | 13.2 - 17.0 | EXTERNAL | | | | performed at [facility], [address] | g/dL | LAB | | | | [address], | | | | | | [place] [address] | | | | + + + + + + | Hematocrit, | 40.6Comment: Testing | 39.0 - 50.0 % | EXTERNAL | | | POC | performed at [facility], [address] | | LAB | | | | [address], | | | | | | [place] [address] | | | | + + + + + + | MCV | 83.1Comment: Testing | 80.0 - 100.0 fl | EXTERNAL | | | | performed at [facility], [address] | | LAB | | | | [address], | | | | | | [place] [address] | | | | + + + + + + | MCH | 28.2Comment: Testing | 27.0 - 34.0 pg | EXTERNAL | | | | performed at [facility], [address] | | LAB | | | | [place], | | | | | | [place] [address] | | | | + + + + + + | MCHC | 34.0Comment: Testing | 32.0 - 35.5 | EXTERNAL | | | | performed at [facility], [address] | g/dL | LAB | | | | [place], | | | | | | [place] [address] | | | | + + + + + + | RDW-CV | 46.4Comment: Testing | 37 - 53 fl | EXTERNAL | | | | performed at [facility], [address] | | LAB | | | | [address], | | | | | | [place] [address] | | | | + + + + + + | Platelet | 140 (L)Comment: Testing | 150 - 400 K/uL | EXTERNAL | | | Count | performed at [facility], [address] | | LAB | | | Plasma | [place], | | | | | | [place] [address] | | | | + + + + + + | MPV | 7.4Comment: Testing | fl | EXTERNAL | | | | performed at [facility], [address] | | LAB | | | | [address], | | | | | | [place] [address] | | | | + + + + + + | Differentia | AUTOMATEDComment: | | EXTERNAL | | | l Type | Testing performed at | | LAB | | | | [facility], [address] | | | | | | [place], [place] | | | | | | [address] | | | | + + + + + + | % Segmented | 78.64Comment: Testing | % | EXTERNAL | | | | performed at [facility], [address] | | LAB | | | Neutrophils | [address], | | | | | | [place], [place] [address] | | | | + + + + + + | % | 12.75Comment: Testing | % | EXTERNAL | | | Lymphocytes | performed at [facility], [address] | | LAB | | | | [address], | | | | | | [place], [place] [address] | | | | + + + + + + | % Monocytes | 8.49Comment: Testing | % | EXTERNAL | | | | performed at [facility], [address] | | LAB | | | | [address], | | | | | | [place] [address] | | | | + + + + + + | % | 0.04Comment: Testing | % | EXTERNAL | | | Eosinophils | performed at [facility], [address] | | LAB | | | | [address], | | | | | | [place] [address] | | | | + + + + + + | % Basophils | 0.08Comment: Testing | % | EXTERNAL | | | | performed at [facility], [address] | | LAB | | | | [place], | | | | | | [place] [address] | | | | + + + + + + | Absolute | 11.34 (H)Comment: | 1.90 - 7.40 | EXTERNAL | | | Segmented | Testing performed at | K/uL | LAB | | | Neutrophils | [facility], [address] | | | | | | [place] | | | | | | [address] | | | | + + + + + + | Absolute | 1.84Comment: Testing | 1.00 - 3.90 | EXTERNAL | | | Lymphocytes | performed at [facility], [address] | K/uL | LAB | | | | [place], | | | | | | [place] [address] | | | | + + + + + + | Absolute | 1.22 (H)Comment: Testing | 0.00 - 0.80 | EXTERNAL | | | Monocytes | performed at [facility], [address] | K/uL | LAB | | | | [address], | | | | | | [place] [address] | | | | + + + + + + | Absolute | 0.01Comment: Testing | 0.00 - 0.50 | EXTERNAL | | | Eosinophils | performed at [facility], [address] | K/uL | LAB | | | | [address], | | | | | | [place] [address] | | | | + + + + + + | Absolute | 0.01Comment: Testing | 0.00 - 0.10 | EXTERNAL | | | Basophils | performed at [facility], [address] | K/uL | LAB | | | | [address], | | | | | | [place] [address] | | | | + + + [...] EXTERNAL | | | | performed at [facility], [address] | | LAB | | | | [place], | | | | | | [place] [address] | | | | + + + [...] EXTERNAL | | | | performed at [facility], [address] | | LAB | | | | [place], | | | | | | [place] [address] | | | | + + + [...] | | | | | [place] [address] | | | | + + + + + + | K | 3.9Comment: Testing | 3.5 - 4.9 | EXTERNAL | | | | performed at [facility], [address] | mmol/L | LAB | | | | [address], | | | | | | [place] [address] | | | | + + + + + + | Cl | 103Comment: Testing | 99 - 109 mmol/L | EXTERNAL | | | | performed at [facility], [address] | | LAB | | | | [address], | | | | | | [place] [address] | | | | + + + + + + | CO2 | 23Comment: Testing | 23 - 32 mmol/L | EXTERNAL | | | | performed at [facility], [address] | | LAB | | | | [address], | | | | | | [place] [address] | | | | + + + + + + | Anion Gap | 17Comment: Testing | 5 - 20 mmol/L | EXTERNAL | | | | performed at [facility], [address] | | LAB | | | | [address], | | | | | | [place] [address] | | | | + + + + + + | Glucose, | 107 (H)Comment: Testing | 65 - 99 mg/dL | EXTERNAL | | | Fasting | performed at [facility], [address] | | LAB | | | | [address], | | | | | | [place] [address] | | | | + + + + + + | BUN | 12Comment: Testing | 8 - 25 mg/dL | EXTERNAL | | | | performed at [facility], [address] | | LAB | | | | [address], | | | | | | [place] [address] | | | | + + + + + + | Creatinine | 0.7Comment: Testing | 0.70 - 1.30 | EXTERNAL | | | | performed at [facility], [address] | mg/dL | LAB | | | | [address], | | | | | | [place] [address] | | | | + + + + + + | BUN/Creatin | 17Comment: Testing | | EXTERNAL | | | ine Ratio | performed at [facility], [address] | | LAB | | | | [place] [address], | | | | | | [place] [address] | | | | + + + + + + | Calcium | 9.0Comment: Testing | 8.5 - 10.5 | EXTERNAL | | | | performed at [facility], [address] | mg/dL | LAB | | | | [place], | | | | | | [place] [address] | | | | + + + [...] | | | | | [place] [address] | | | | + + + [...]
== END 2019-05-31 14:43 | disposition home or self-care (01) ==
LOC: ED 14:16
DX: R07.0 Pain in throat (principal); F31.9 Bipolar disorder, unspecified; Z79.899 Other long term (current) drug therapy
CPT/HCPCS: 99282

== ENCOUNTER 2019-07-10 10:43 | Emergency (ER) | payer OTHER ==
[~2019-07-10] VITALS: Ht 172.7 cm; Wt 83.2 kg
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
== END 2019-07-10 12:02 | disposition home or self-care (01) ==
LOC: ED 10:43
DX: S00.03XA Contusion of scalp, initial encounter (principal); S00.83XA Contusion of other part of head, initial encounter; Y04.8XXA Assault by other bodily force, initial encounter; F90.9 Attention-deficit hyperactivity disorder, unspecified type; F31.9 Bipolar disorder, unspecified; F41.9 Anxiety disorder, unspecified; F17.200 Nicotine dependence, unspecified, uncomplicated; Z79.899 Other long term (current) drug therapy
CPT/HCPCS: 99283; A9270

== ENCOUNTER 2023-06-20 11:37 | Emergency (ER) | payer OTHER ==
[~2023-06-20] VITALS: Ht 167.6 cm; Wt 92.0 kg
[~2023-06-20 11:37] MED LIST changes: +ACETAMINOPHEN325 M1 PO; -ACETAMINOPHEN650 M1 PO; +AZITHROMYCIN250 MG PO; -CALCIUM ANTACI400 MG PO; +CEFPODOXIME PR200 MG PO; -CEROVITE ADVAN1 EACH PO; +CITRUCEL POWDE454 GM PO; +COUGH MM; +CVS SPECTRAVIT PO; +DEPAKOTE ER500 MG PO; -DEPAKOTE500 MG PO; +LIPITOR40 MG PO; +METFORMIN HCL1000 MG PO; +METOPROLOL TART50 MG PO; +OLANZAPINE20 MG PO; -OLANZAPINE5 MG PO; +ROBAFEN DM 200118 ML PO; +STRATTERA80 MG PO; +TRAZODONE HCL50 MG PO; +TRIPLE ANTIBI28.4 G3 TOP; +TUMS200 MG PO; +VITAMIN C500 M1 PO; +VITAMIN D21250 MCG PO; -VITAMIN D250000 UNIT PO
[2023-06-20] MEDS ORDERED: FLUTICASONE PRO16 GM NAS (12:00)
[2023-06-20 12:47] VITALS: BP 115/94
== END 2023-06-20 12:49 | disposition home or self-care (01) ==
LOC: ED 11:37
DX: S00.03XA Contusion of scalp, initial encounter (principal); F90.9 Attention-deficit hyperactivity disorder, unspecified type; F31.9 Bipolar disorder, unspecified; F84.0 Autistic disorder; F17.210 Nicotine dependence, cigarettes, uncomplicated; Z79.899 Other long term (current) drug therapy; W01.198A Fall on same level from slipping, tripping and stumbling with subsequent striking against other object, initial encounter
CPT/HCPCS: 70450; 99283-25; A9270